=== PATIENT | male | born 1940 | race Caucasian/White ===

== ENCOUNTER 2023-03-01 11:08 | Outpatient (RCR) | payer MEDICARE, SELFPAY | END 2023-03-01 23:59 | disposition home or self-care (01) | LOC: ROT 11:08 | PROVIDERS: ATTENDING PHYSICIAN Psychiatry & Neurology Neurology; FAMILY PHYSICIAN Family Medicine | DX: R29.898 Other symptoms and signs involving the musculoskeletal system (principal); Z73.6 Limitation of activities due to disability; R26.9 Unspecified abnormalities of gait and mobility | CPT/HCPCS: 97110; 97112; 97116; 97163; 97167; 97530; 97535 ==

== ENCOUNTER 2023-04-03 10:26 | Outpatient (RCR) | payer MEDICARE, SELFPAY | END 2023-04-03 23:59 | disposition home or self-care (01) | LOC: ROT 10:26 | PROVIDERS: ATTENDING PHYSICIAN Psychiatry & Neurology Neurology; FAMILY PHYSICIAN Family Medicine | DX: I69.398 Other sequelae of cerebral infarction (principal); R29.898 Other symptoms and signs involving the musculoskeletal system; I69.318 Other symptoms and signs involving cognitive functions following cerebral infarction; R41.841 Cognitive communication deficit; R26.9 Unspecified abnormalities of gait and mobility | CPT/HCPCS: 96125; 97110; 97112; 97116; 97129; 97130; 97530; 97535 ==

== ENCOUNTER 2023-04-24 23:32 | Emergency (ER) | payer MEDICARE, SELFPAY ==
[2023-04-24 23:36] VITALS: BP 128/79
[2023-04-24 23:46] VITALS: BP 129/97
--- NOTE | 2023-04-24 23:52 | ED.GENMED ---
History of Present Illness
General
Chief Complaint: Abdominal Symptoms
Source: patient
Exam Limitations: none
Time Seen by Provider: 04/24/23 23:42
Nursing documentation reviewed up to this point in time: agreed with
Travel History
Have you had any contact with someone who has COVID-19?: No
Do you have any symptoms of coronavirus? Fever > 100 degrees, chills, cough, shortness of breath, sore throat, loss of taste or smell, muscle aches, or headache?: No
History of Present Illness
History of Present Illness:
82-year-old male with a past medical history of Parkinson's, hypertension, hyperlipidemia, diabetes who presents to the emergency room via EMS from home for evaluation of abdominal pain. Patient reports onset of symptoms last night�he says that he
had an episode shortly after dinner that lasted for a few minutes and was associated with 1 small episode of vomiting after which the symptoms completely resolved. He then was asymptomatic until tonight at around 10:30 PM. He says he was laying in
bed and had rather abrupt onset of intense epigastric pain. Radiated towards the lower chest. He says it was associated with intense nausea. He says this lasted for 30 minutes or so at which time he had a large volume of nonbloody emesis. He
says after this he symptoms completely resolved. EMS was called to bring him to the hospital. He says he has no pain here in the emergency room and in fact is completely asymptomatic. He no longer has any nausea. He says he has been having
normal bowel movements last bowel movement was this morning he is passing gas throughout the day. He denies any recent fevers or chills. Denies any chest pain or exertional symptoms. No shortness of breath. No dizziness. He denies similar
symptoms in the past. He denies any prior history of abdominal surgeries.
Past History
Past History
ED Past Medical History: HTN, Hypercholesterolemia and NIDDM
ED Past Surgical History: Other
Social History
Personal:
Review of Systems
Review of Systems
All Other Systems: ROS reviewed and negative except as documented in HPI and ROS
Constitutional: Denies fever or chills
EENT: Denies sore throat or runny nose
Respiratory: Denies cough or trouble breathing
Cardiac: Denies chest pain or palpitations
ABD/GI: Reports abdominal pain, nausea and vomiting; Denies diarrhea or constipated
: Denies dysuria, frequency or flank pain
Musculoskeletal: Denies neck pain or back pain
Neurological: Denies headache, weakness or numbness
Phy Exam
Physical Exam
Physical Exam:
General: Awake, alert, oriented x3; no acute distress
Head: Normocephalic, atraumatic
Eyes: Conjunctiva normal, sclera anicteric
Throat: Airway intact, handling secretions
Neck: Trachea midline, supple without meningismus
Lungs: Clear to auscultation bilaterally, no wheezing, rales, rhonchi
Heart: Regular rate and rhythm, no murmurs, gallops, or rubs
Abd: Soft, mildly distended with some tympany across the upper abdomen; normoactive bowel sounds; mild tenderness in the epigastric region but no peritoneal signs and no abdominal masses appreciated
Neuro: Cranial nerves grossly intact, speech fluid
Skin: no rash
Extremities: No edema in extremities, warm and well-perfused
Scores
Heart Failure Risk
Heart Failure Risk Score: Not Applicable
Heart Score for Chest Pain Patients
STEMI patient?: Not applicable
Withdrawal Assessment of Alcohol
Withdrawal Assessment Completed?: Not applicable
Course
Orders/Labs/Results
Orders:
Orders
04/24/23 23:40
IV Insert/Care/Rem.- Treatment PRN
04/24/23 23:41
Electrocardiogram (*1) Urgent
Reason for Study: Abdominal Pain
EKG- Treatment ONCE
04/24/23 23:42
Electrocardiogram (*1) Urgent
Reason for Study: Abdominal Pain
EKG- Treatment ONCE
04/24/23 23:50
Complete Blood Count/With Diff Urgent
Comprehensive Metabolic Panel Urgent
Lipase Urgent
Troponin I Urgent
04/24/23 23:56
Lactate Level [Lactic Acid] Urgent
04/25/23 01:00
CT Abd/pelvis W Iv Cont Urgent
Reason For Exam: epigastric abd pain
Abnormal Lab Results
04/24/23 04/24/23
23:50 23:56
RBC 4.00 L 10^6/uL
(4.70-6.10)
Hct 38.3 L %
(39.0-52.0)
MCV 95.8 H fL
(80.0-94.0)
MCH 33.0 H pg
(27.0-31.0)
MPV 11.0 H fL
(7.4-10.4)
Abs Immat Gran (auto) 0.1 H 10^3/uL
(0-0.05)
Absolute Monos (auto) 1.1 H 10^3/uL
(0.1-0.6)
Immature Gran % 1.1 H %
(0-0.5)
Lymphocytes % 17.1 L %
(20.5-51.1)
Monocytes % 10.9 H %
(1.7-9.3)
Eosinophils % 6.1 H %
(0-6)
Creatinine 1.5 H mg/dL
(0.7-1.3)
Glucose 149 H mg/dl
(70-99)
Lactic Acid 2.3 H mmol/L
(0.7-2.0)
04/24/23 23:50
04/24/23 23:50
Vital Signs
Initial and Last Documented VS:
Initial Vital Signs
Temp Pulse Resp BP Pulse Ox
36.7 C 92 24 128/79 97
04/24/23 23:36 04/24/23 23:36 04/24/23 23:36 04/24/23 23:36 04/24/23 23:36
Last Documented Vital Signs
Temp Pulse Resp BP Pulse Ox
36.7 C 87 15 122/84 96
04/24/23 23:36 04/25/23 00:45 04/25/23 00:45 04/25/23 00:45 04/25/23 00:45
MDM/Problems Addressed
Differential Diagnosis Includes:
Cholecystitis, cholelithiasis, gastritis, pancreatitis, bowel obstruction, enteritis, atypical NV presentation
MDM/Problems Addressed:
82-year-old male with history as above presents for evaluation of abdominal pain�had a brief episode last night that resolved after vomiting, had a more intense and prolonged episode this evening and again resolved after vomiting. Currently
asymptomatic. Vital signs normal. Exam as above. Plan to place an IV check labs including a CBC and a CMP, lipase. Check an EKG and a troponin. Check CT of the abdomen pelvis. Will monitor closely reassess after the above.
Initial labs reviewed: CBC unremarkable, CMP shows marginally elevated creatinine at 1.5 compared to 1.3 prior. No other clinically significant abnormalities. Troponin negative. Awaiting results of CT. Patient remains pain-free with reassuring
exam.
Vision radiology report reviewed: No acute abnormality within the abdomen pelvis, no bowel obstruction, normal gallbladder and appendix; there is a mild distal esophageal wall thickening which could be correlated with signs or symptoms of
esophagitis. Patient remains pain-free since arrival here in the emergency room. Workup thus far reassuring. His is now at the bedside she notes that he was recently started on Sinemet and has been increasing dosage. Apparently last night
and tonight was the first night he took the increased dosage and she thinks that this may be the cause of his symptoms. Advised to scale back to previous dose and discuss with prescribing physician. They are requesting discharge patient says he
feels well. At this point no clear indication for admission with resolution of symptoms completely and reassuring vitals, exam, workup thus far. Will discharge with plan for outpatient PCP follow-up. Spoke about return precautions all questions
answered.
*Radiology
Radiology exam reviewed: radiology read reviewed
*Pulse Oximetry
Patient hypoxic: no
*EKG
Interpreted by ED Provider?: Yes
Heart Rate: 92
Rate: normal
Rhythm: sinus
[place]: normal axis
Interval: normal interval
QRS Pattern: normal QRS
Ischemia: no ischemia
*Critical Care Note
Total Time (30-74mins, 75-104mins- exclusive of procedures): Not Applicable
Data Reviewed
Source: patient, records and ambulance crew
ED Attending Note
-
Portions of this chart may have been created with voice recognition software.� Occasional wrong word or��sound alike� substitutions may have occurred due to the inherent limitations of voice recognition software.
Discharge Plan
Departure
Patient Disposition: Home (Routine Discharge)
Date of Disposition: 04/25/23
Time of Disposition: 04:10
Patient with high blood pressure during this ER visit?: No
Discharge Problem:
Abdominal pain
Instructions: Abdominal Pain
Prescriptions:
No Action
lisinopril 20 mg tablet
20 mg PO DAILY
amlodipine 5 mg tablet
5 mg PO DAILY
simvastatin 40 mg tablet
40 mg PO QPM
cyanocobalamin (vitamin B-12) 500 mcg Tablet
500 mcg PO DAILY
Janumet 50-500 mg tablet
1 tab PO BID@0800,1700
Hold Instructions: Resume on 09/10/22.
pantoprazole 40 mg tablet,delayed release (DR/EC)
40 mg PO BID Qty: 60 1RF
ferrous sulfate 325 mg (65 mg iron) tablet
325 mg PO NOON Qty: 30 0RF
ascorbic acid (vitamin C) [Vitamin C] 500 mg tablet
500 mg PO NOON Qty: 30 0RF
aspirin 81 mg Tablet
81 mg PO DAILY
carbidopa-levodopa 25-100 mg Tablet
0.5 tab PO TID
Patient Comments:
STEADILY INCREASING DOSES
Referrals:
Marvin Davies DO [Family Provider] - Call in 1-3 days for appt
Activity Restrictions/Additional Instructions:
Thank you for visiting the Emergency Department at [facility].
1. Please schedule a follow up appointment as directed. Call first thing tomorrow morning to make an appointment.
2. If indicated, please take your medications as instructed and indicated on discharge paperwork.
3. If any of your symptoms do not improve, or persist, or become more severe within 6-12 hours, please return to the emergency department for further care.
4. Please return to the emergency department if you develop a headache, neck pain/stiffness, fever greater than 100.4F, chest pain, shortness of breath, persistent nausea, vomiting, slurred speech, difficulty walking, numbness/tingling, weakness,
signs of infection or any other symptoms that are worrisome to you.
Please call [phone] if you have any questions.
Interventions
Interventions:
*Risk Screen - Suicide Last Done: 04/24/23 23:36
*Neglect/Abuse Screening Last Done: 04/24/23 23:36
ED- Fall Risk Assessment Last Done: 04/24/23 23:36
*ED COVID-19 Vaccine History Last Done: 04/24/23 23:36
GO-Mniamh-[place]ac[place] Assessment Last Done: 04/24/23 23:36
[2023-04-25] VITALS: BP 128/79; BMI 30.5
[2023-04-25 00:23] LABS: Lactic Acid 2.3 mmol/L (0.7-2.0)
[2023-04-25 00:26] LABS: ALT (SGPT) 19 U/L (0-50); AST (SGOT) 21 U/L (17-59); Albumin 4.2 g/dl (3.5-5.0); Alkaline Phosphatase 122 U/L (38-126); Blood Urea Nitrogen 20 mg/dl (9-20); Calcium 8.9 mg/dl (8.4-10.2); Carbon Dioxide 22 mmol/L (22-30); Chloride 107 mmol/L (98-107); Estimated Creatinine Clearance 48 ml/min; Glucose 149 mg/dl (70-99); Lipase 95 U/L (23-300); Potassium 4.6 mmol/L (3.5-5.1); Sodium 138 mmol/L (135-145); Total Bilirubin 0.6 mg/dl (0.2-1.3); Total Protein 6.9 g/dl (6.3-8.2); eGFR 46.48
[2023-04-25 00:33] LABS: % Basophils 0.7 % (0-2); % Eosinophils 6.1 % (0-6); % Immature Granulocytes 1.1 % (0-0.5); % Lymphocytes 17.1 % (20.5-51.1); % Monocytes 10.9 % (1.7-9.3); % Neutrophils 64.1 % (42.2-75.2); Absolute Basophils 0.1 10^3/uL (0-0.2); Absolute Eosinophils 0.6 10^3/uL (0-0.7); Absolute Immature Granulocytes 0.1 10^3/uL (0-0.05); Absolute Lymphocytes 1.7 10^3/uL (1.2-3.4); Absolute Monocytes 1.1 10^3/uL (0.1-0.6); Absolute Neutrophils 6.4 10^3/uL (1.4-6.5); Hematocrit 38.3 % (39.0-52.0); Hemoglobin 13.2 g/dL (13.0-18.0); Mean Corp Hgb Conc. 34.5 g/dL (33.0-37.0); Mean Corpuscular Volume 95.8 fL (80.0-94.0); Nucleated Red Blood Cells % 0 % (-); Platelet Count 185 10^3/uL (130-400); Red Cell Dist. Width 12.8 % (11.5-14.5); White Blood Cell Count 9.9 10^3/uL (4.8-10.8)
[2023-04-25 00:35] LABS: Troponin I < 0.012 ng/ml
[2023-04-25 00:45] VITALS: BP 122/84
--- NOTE | 2023-04-25 04:19 | DOWNTIME ---
There was a [employer] Client Antenna Design Engineer Downtime on 04/25/2023 from 0111 to 04/25/2023 at 0405. Downtime documentation of patient's care, including medication administrations, has been reconciled in the electronic record per guidelines. Refer to the
patient's paper chart under the miscellaneous tab to see printed paper medication records and downtime forms.
== END 2023-04-25 02:22 | disposition home or self-care (01) ==
LOC: EMR 23:32
PROVIDERS: EMERGENCY PHYSICIAN Emergency Medicine; FAMILY PHYSICIAN Family Medicine
DX: R10.13 Epigastric pain (principal); R07.89 Other chest pain; R11.2 Nausea with vomiting, unspecified; R79.89 Other specified abnormal findings of blood chemistry; G20.A1 Parkinson's disease without dyskinesia, without mention of fluctuations; I10 Essential (primary) hypertension; E78.00 Pure hypercholesterolemia, unspecified; E11.9 Type 2 diabetes mellitus without complications; Z79.82 Long term (current) use of aspirin; Z79.84 Long term (current) use of oral hypoglycemic drugs
CPT/HCPCS: 99285; 74177; 80053; 83605; 83690; 84484; 85025; 93005; Q9967

== ENCOUNTER 2023-05-02 14:46 | Outpatient (RCR) | payer MEDICARE, SELFPAY | END 2023-05-02 23:59 | disposition home or self-care (01) | LOC: ROT 14:46 | PROVIDERS: ATTENDING PHYSICIAN Psychiatry & Neurology Neurology; FAMILY PHYSICIAN Family Medicine | DX: I69.318 Other symptoms and signs involving cognitive functions following cerebral infarction (principal); R41.841 Cognitive communication deficit; I69.398 Other sequelae of cerebral infarction; R29.898 Other symptoms and signs involving the musculoskeletal system; R26.9 Unspecified abnormalities of gait and mobility | CPT/HCPCS: 97110; 97112; 97116; 97129; 97130; 97530; 97535 ==

== ENCOUNTER 2023-05-09 14:54 | Outpatient (RCR) | payer MEDICARE, SELFPAY | END 2023-05-09 23:59 | disposition home or self-care (01) | LOC: ROT 14:54 | PROVIDERS: ATTENDING PHYSICIAN Psychiatry & Neurology Neurology; FAMILY PHYSICIAN Family Medicine | DX: I69.311 Memory deficit following cerebral infarction (principal); R29.898 Other symptoms and signs involving the musculoskeletal system; I69.310 Attention and concentration deficit following cerebral infarction; I69.314 Frontal lobe and executive function deficit following cerebral infarction; I69.354 Hemiplegia and hemiparesis following cerebral infarction affecting left non-dominant side; I69.318 Other symptoms and signs involving cognitive functions following cerebral infarction; R26.9 Unspecified abnormalities of gait and mobility; Z73.6 Limitation of activities due to disability | CPT/HCPCS: 97110; 97116; 97129; 97130; 97530; 97535 ==

== ENCOUNTER 2023-10-06 18:35 | Inpatient (IN) | payer MEDICARE, SELFPAY ==
[2023-10-06] VITALS (13 sets, daily range): BP systolic 126–152; BP diastolic 72–93; PULSE 88; O2SAT 94; BMI 30.5
--- NOTE | 2023-10-06 11:22 | ED.GENMED ---
History of Present Illness
General
Chief Complaint: Weakness
Source: patient and ambulance crew
Exam Limitations: altered mental status
Time Seen by Provider: 10/06/23 11:21
History of Present Illness
History of Present Illness:
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 EMS states they are very familiar with this patient as they get frequent
calls for a lift assist either from wheelchair to bed or wheelchair into the car. Today the police, who are also very familiar with the patient, arrived before EMS and told EMS that 'something is different.' EMS personnel state that unlike other
times, today, patient is unable to stand once they would. He is much weaker.
Pt denies CP, trouble breathing, abdominal pain. Denies any pain.
Cannot state why he's here.
arrives, states 'he's totally out of it.'Called EMT to get pt into car to meet family for breakfast. He kept leaning to his left side, officer that arrived also saw pt yesterday and said he's more out of it, weaker.
States he seems more confused.
Has been eating and drinking well. Incontinent of stool and urine.
Chronic right leg weakness
Fell 5 days ago, wound on nose. Slipped off wheelchair, hit left side of nose on kitchen counter.
Went to pt first, given cream to put on TID, and antibiotic 4 times a day (Keflex)
Lasts saw PCP Dr. Davies saw in August, referred to [facility] where he's been going past 4 weeks, twice a week.
had one episode vomiting after eating at [employer].
Next therapy in 3 days.
Past History
Past History
ED Past Medical History: HTN, Hypercholesterolemia, NIDDM and Other (Parkinson's )
ED Past Surgical History: Orthopedic (2020 low back surgery)
Social History
Tobacco: Non-smoker
Alcohol: None
Personal:
Living: with family
Review of Systems
Review of Systems
Allergies reviewed?: Yes
All Other Systems: ROS reviewed and negative except as documented in HPI and ROS
Constitutional: Denies fever
Respiratory: Denies trouble breathing
Cardiac: Denies chest pain
ABD/GI: Denies abdominal pain, nausea, vomiting, diarrhea or anorexia
: Denies dysuria, frequency or difficulty voiding
Musculoskeletal: Reports other (chronic right leg weakness)
Skin: Reports other (left side nose cheek wound post fall 5 days ago. )
Phy Exam
Physical Exam
Physical Exam:
GENERAL: No acute distress. Alert, oriented to name, , '[facility],' states it's February
CONSTITUTIONAL: Afebrile.
EYES: PERRL, conjunctivae normal
Neck: Supple
ENMT: moist mucus membranes, Pharynx nl
RESPIRATORY: Regular respirations, nonlabored, lungs clear.
CARDIOVASCULAR: Regular rate and rhythm, no murmurs, no rubs.
GI: Soft, nontender, normal BS
MUSCULOSKELETAL: Moves with ease. Well perfused.
SKIN: Warm, dry, pink. Scabbed wound left side nose with surrounding erythema, no drainage, no significant swelling.
PSYCH: Normal mood and affect. Well kept, interactive and appropriate
NEUROLOGIC: Awake, alert and oriented. No focal neurological deficits, speech clear.
Course
Orders/Labs/Results
Orders:
Orders
10/06/23 11:26
Complete Blood Count/With Diff Urgent
Comprehensive Metabolic Panel Urgent
10/06/23 11:33
CT Head W/o Iv Contrast Urgent
Comment:
Reason For Exam: change in mental state, leaning to left
10/06/23 12:14
0.9% Sodium Chloride 1000 ml [Nss] 1,000 ml IV BOLUS
10/06/23 12:28
Urinalysis Reflex To Culture Urgent
Date Specimen was Collected: 10/06/23
Time Specimen was Collected: 12:15
10/06/23 13:22
Case Management Consult ONCE
Case Management Consult: Discharge Planning
Comment: cannot care for him, needs rehab.
Physical Therapy Consult [Pt Eval And Treat] Urgent
Treatment: eval for placement in rehab
Activity Level: As Tolerated
Abnormal Lab Results
10/06/23 10/06/23
11:26 12:28
RBC 3.93 L 10^6/uL
(4.70-6.10)
Hct 37.0 L %
(39.0-52.0)
MCV 94.1 H fL
(80.0-94.0)
MCH 33.1 H pg
(27.0-31.0)
MPV 10.7 H fL
(7.4-10.4)
Absolute Monos (auto) 1.0 H 10^3/uL
(0.1-0.6)
Monocytes % 12.7 H %
(1.7-9.3)
Carbon Dioxide 20 L mmol/L
(22-30)
BUN 22 H mg/dl
(9-20)
Creatinine 1.7 H mg/dL
(0.7-1.3)
Glucose 266 H mg/dl
(70-99)
Urine Ketones Trace A
(Negative)
10/06/23 11:26
10/06/23 11:26
Vital Signs
Initial and Last Documented VS:
Initial Vital Signs
Temp Pulse Resp BP Pulse Ox
99.2 F 96 18 134/76 93
10/06/23 11:18 10/06/23 11:18 10/06/23 11:18 10/06/23 11:18 10/06/23 11:18
Last Documented Vital Signs
Temp Pulse Resp BP Pulse Ox
99.2 F 83 24 140/78 93
10/06/23 11:18 10/06/23 14:45 10/06/23 14:45 10/06/23 13:49 10/06/23 13:49
MDM/Problems Addressed
Differential Diagnosis Includes:
UTI, dehydration, CVA
MDM/Problems Addressed:
83-year-old male with history of HTN, HLD, NIDDM, Parkinson's presents from home by EMS. EMS states they are very familiar with this patient as they get frequent calls for a lift assist either from wheelchair to bed or wheelchair into the car.
Today the police, who are also very familiar with the patient, arrived before EMS and told EMS that 'something is different.' EMS personnel state that unlike other times, today, patient is unable to stand once they would. He is much weaker.
residential plan: Nicol from [facility] follows pt, told there is a 4 day/wk program for people with Parkinson's if he gets any worse
Pt denies CP, trouble breathing, abdominal pain. Denies any pain.
Cannot state why he's here.
Temp 99.0 po
12:00 p.m.
CBC: no clinically significant abnormality
CMP: BUN/creat 22/1.7 slightly increased from previous, most likely prerenal, 200 ml IV fluids infused en route/ 1 L over and hour ordered now
Head CT: Radiology report reviewed: IMPRESSION:
No acute intracranial hemorrhage.
There is extensive periventricular and subcortical white matter hypodensities, similar to prior MRI and likely sequelae of chronic small vessel ischemic disease, however MRI would be more sensitive if there is concern for acute ischemia.
There is opacification of the right frontal sinus with partial opacification of the ethmoid air cells recommend correlation for possible sinusitis.
Debris within the bilateral external auditory canals, likely cerumen.
1:00 PM:
UA: Negative
P/T in: recommends SNF. Pt heavy 2 person assist.
does not want to take pt home, she cannot handle him
3:00 p.m.
Case management in: States in order to place in SNF, needs 3 night stay.
Hospitalist notified of admission.
5:30 p.m.
Hospitalist MARKET RESEARCH SENIOR PROJECT MANAGER in to admit
Pt remains stable.
*Critical Care Note
Total Time (30-74mins, 75-104mins- exclusive of procedures): Not Applicable
ED Attending Note
-
Portions of this chart may have been created with voice recognition software.� Occasional wrong word or��sound alike� substitutions may have occurred due to the inherent limitations of voice recognition software.
Discharge Plan
Departure
Patient Disposition: Admit
Date of Disposition: 10/06/23
Time of Disposition: 14:57
Admit to: Med/Surg
Presentation/result/management discussed w/ accepting MD/DO: Hospitalist
Condition: Fair
Discharge Problem:
Ambulatory dysfunction, Acute dehydration, Change in mental state
Prescriptions:
No Action
lisinopril 20 mg tablet
20 mg PO DAILY
amlodipine 5 mg tablet
5 mg PO DAILY
simvastatin 40 mg tablet
40 mg PO QPM
cyanocobalamin (vitamin B-12) 500 mcg Tablet
500 mcg PO DAILY
Janumet 50-500 mg tablet
1 tab PO BID@0800,1700
ferrous sulfate 325 mg (65 mg iron) tablet
325 mg PO NOON Qty: 30 0RF
ascorbic acid (vitamin C) [Vitamin C] 500 mg tablet
500 mg PO NOON Qty: 30 0RF
cephalexin 250 mg capsule
250 mg PO QID
aspirin 81 mg Tablet,Delayed Release (Dr/Ec)
81 mg PO DAILY
pantoprazole 40 mg tablet,delayed release (DR/EC)
40 mg PO BID@0800,1700
Referrals:
Marvin Davies DO [Family Provider] -
Interventions
Interventions:
*Risk Screen - Suicide Last Done: 10/06/23 11:22
*General Assessment Last Done: 10/06/23 11:22
*Neglect/Abuse Screening Last Done: 10/06/23 11:22
*ED COVID-19 Vaccine History Last Done: 10/06/23 11:22
ED- Cardiac Assessment Last Done: 10/06/23 11:23
ED- Neurological Assessment Last Done: 10/06/23 11:23
ED- Pulmonary Assessment Last Done: 10/06/23 11:23
Discharge Date and Time
Print Language: CHINESE
[2023-10-06 11:34] LABS: % Basophils 0.5 % (0-2); % Eosinophils 2.5 % (0-6); % Immature Granulocytes 0.4 % (0-0.5); % Lymphocytes 20.9 % (20.5-51.1); % Monocytes 12.7 % (1.7-9.3); Absolute Eosinophils 0.2 10^3/uL (0-0.7); Absolute Lymphocytes 1.6 10^3/uL (1.2-3.4); Absolute Neutrophils 4.8 10^3/uL (1.4-6.5); Mean Corp Hgb Conc. 35.1 g/dL (33.0-37.0); Mean Corpuscular Hgb 33.1 pg (27.0-31.0); Mean Corpuscular Volume 94.1 fL (80.0-94.0); Mean Platelet Volume 10.7 fL (7.4-10.4); Nucleated Red Blood Cells % 0 % (-); Platelet Count 152 10^3/uL (130-400); Red Blood Cell Count 3.93 10^6/uL (4.70-6.10); Red Cell Dist. Width 12.8 % (11.5-14.5); White Blood Cell Count 7.6 10^3/uL (4.8-10.8)
[2023-10-06 11:52] LABS: ALT (SGPT) 31 U/L (0-50); AST (SGOT) 32 U/L (17-59); Albumin 4.4 g/dl (3.5-5.0); Alkaline Phosphatase 88 U/L (38-126); Blood Urea Nitrogen 22 mg/dl (9-20); Calcium 9.1 mg/dl (8.4-10.2); Carbon Dioxide 20 mmol/L (22-30); Chloride 103 mmol/L (98-107); Estimated Creatinine Clearance -6 ml/min; Glucose 266 mg/dl (70-99); Potassium 4.7 mmol/L (3.5-5.1); Sodium 135 mmol/L (135-145); Total Bilirubin 0.7 mg/dl (0.2-1.3); Total Protein 6.9 g/dl (6.3-8.2); eGFR 39.75
[2023-10-06] MEDS: NSS 1000 IV ×2 (12:16→20:54)
[2023-10-06 12:57] LABS: Urine Albumin Negative (Neg - Trace); Urine Bilirubin Negative (Negative); Urine Character Clear (Clear); Urine Color Yellow; Urine Glucose Negative (Negative); Urine Ketone Trace (Negative); Urine Leukocyte Negative (Negative); Urine Nitrite Negative (Negative); Urine Occult Blood Negative (Negative); Urine Specific Gravity 1.015 (<1.030); Urine Urobilinogen Negative (Neg - 1+); Urine pH 6.5 (5.0-9.0)
--- NOTE | 2023-10-06 13:50 | CM ---
Addendum entered by VANCE Feng 10/06/23 14:37:
Consult for SNF . Patient seen by PT. MEt with patient he agrees to referrals to [facility] and [facility]. Family out of room.
Referrals sent in allscripts.
Original Note:
Met patient, and children in room. Patient and say they usually manage at home but patient is much weaker today than last night. They live in one level apartment that is w/c accessible from one of the doors. He only sponge bathes. He
uses urinal and wears depends. He does not have a hospital bed.
PCP Marvin Davies
[facility]
CM discussed [facility] for [facility] as patient is a .
NOrmally able to assist with w/c transfers. PEr and family he has not been diagnosed with Parkinson's Disease.
Encouraged family to pursue assistance from [facility].
HE has been to [facility] in past and had [facility] home care in past.
He recently has been going to outpatient [facility].
Awaiting PT eval to determine if patient can go home with home care or needs SNF placement.
CM to follow for discharge needs.
--- NOTE | 2023-10-06 18:18 | W.PN.UPDATE ---
Update Note
Progress Note Update
I saw and examined the patient.
The HAND TOUCH UP PAINTER or PA's note was reviewed and I agree with the note that will proceed this note.
Comment:
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
note, EMS receives frequent calls from left to assist patient to wheelchair or bed or wheelchair to car in the past although this time appears to be much weaker.� Cannot state why he is here, although denies any associated symptoms.� states is
more confused.� Of note had a fall 5 days ago and sustained a wound on her nose, no head strike. �Patient normotensive, heart rate 83, respiratory rate 24, saturating well on room air.� Creatinine 1.7, glucose 266, UA negative.� Head CT unremarkable
for acute pathology although does have extensive periventricular and subcortical white matter hypodensities, similar to prior MRI and likely several layers of chronic small vessel ischemic disease.� Possible sinusitis.� Patient unable to ambulate
well and admitted for placement, with PT/OT recommending SNF.� No acute findings, interventions at this time.� Was given 1 L LR bolus, can provide 1 additional bolus.� Pending placement.
--- NOTE | 2023-10-06 18:24 | HPS.HSE ---
Family Physician
-
Family Physician: Marvin Davies
Chief Complaint
-
Weakness
History of Present Illness
Patient is an 83-year-old male past medical history of hypertension, hyperlipidemia, diabetes and prior stroke who presents with weakness. Additional history is obtained from patient's at the bedside. Patient frequently requires EMS
assistance for lift assistance. Today patient was attempting to get to the car to be to family for breakfast, and EMS noted him to be significantly weaker than baseline and suggested he come to the emergency department for evaluation. notes
patient fell about 5 days ago injuring his nose, currently receiving antibiotics until October 08. There are no reports of fever, sweats or chills. Patient denies any cough, shortness of breath, chest pain, palpitations, nausea, vomiting, diarrhea,
constipation, dysuria or urinary frequency.
Medical History
Past Medical History
Past Medical History: Reports Other
Additional Past Medical History:
Essential Hypertension
Hyperlipidemia
Diabetes Mellitus, Type II
Multiple Strokes
GERD/Erosive Esophagitis
Past Surgical History: Reports Other
Additional Past Surgical History:
Back Surgery
Social History
Tobacco: Non-smoker
Alcohol: None
Personal:
Living: With Family
Family History
Family History: Not pertinent
Allergies / Home Medications
Allergies reflects when Allergies were last updated in [facility].
Home Medications with original date entered in [facility]
Allergy/Medication List:
Allergies
Allergy/AdvReac Type Severity Reaction Status Date / Time
No Known Allergies Allergy Verified 10/06/23 11:18
Home Medications
amlodipine 5 mg tablet 5 mg PO DAILY Blood Pressure 09/06/22
cyanocobalamin (vitamin B-12) 500 mcg tablet 500 mcg PO DAILY Supplement 09/06/22
lisinopril 20 mg tablet 20 mg PO DAILY Blood Pressure 09/06/22
simvastatin 40 mg tablet 40 mg PO QPM High Cholesterol 09/06/22
sitagliptin phosphate 50 mg-metformin 500 mg tablet (Janumet) 1 tab PO BID@0800,1700 Diabetes 09/06/22
ascorbic acid (vitamin C) 500 mg tablet (Vitamin C) 500 mg PO NOON #30 tabs 09/07/22
ferrous sulfate 325 mg (65 mg iron) tablet 325 mg PO NOON #30 tabs 09/07/22
aspirin 81 mg tablet,delayed release 81 mg PO DAILY 10/06/23
cephalexin 250 mg capsule 250 mg PO QID 10/06/23
pantoprazole 40 mg tablet,delayed release 40 mg PO BID@0800,1700 10/06/23
Review of Systems
-
A 12 point ROS was completed and negative except as noted: Yes
Constitutional: Denies Fever or Chills
Respiratory: Denies Cough or Trouble Breathing
Cardiac: Denies Chest Pain or Palpitations
Abdomen/GI: Denies Abdominal Pain, Nausea or Vomiting
Physical Exam
Vital Signs
Vital Signs
Temp Pulse Resp BP Pulse Ox
99.2 F 90 25 132/79 93
10/06/23 11:18 10/06/23 18:15 10/06/23 18:15 10/06/23 18:00 10/06/23 13:49
Physical Exam
General: Comfortable and Conversant
HEENT: Anicteric and Moist mucous membranes
Respiratory: Clear and Non Labored Respirations
Cardiac: S1/S2 and Regular Rhythm
GI: Soft and Non Tender
Musculoskeletal: No Clubbing, No Cyanosis and No Edema
Skin: Warm, Dry and Other (Large scab to nose following recent fall)
Neuro: Awake and Alert; No Oriented (Patient unable to tell me correct date or identify the president)
Laboratory Results
-
10/06/23 11:26
10/06/23 11:26
Laboratory Results
Total Bilirubin 0.7 mg/dl (0.2-1.3) 10/06/23 11:26
AST 32 U/L (17-59) 10/06/23 11:26
ALT 31 U/L (0-50) 10/06/23 11:26
Alkaline Phosphatase 88 U/L (38-126) 10/06/23 11:26
Data Reviewed
-
CT Scan: Report Reviewed by me
Lab Data: Labs Reviewed by me
Old Records: Reviewed
Impression/Plan
-
Elevated Creatinine, possible GEO vs CKD
-Continue IVFs
-Check bladder scans
Weakness/Ambulatory Dysfunction
-Consult PT/OT
Essential Hypertension
-Continue amlodipine
-Hold lisinopril
Hyperlipidemia
-Continue simvastatin
Diabetes Mellitus, Type II
-Continue Januvia
-Hold metformin
-Monitor sugars and continue coverage
GERD/Erosive Esophagitis
-Continue Protonix
Multiple Prior Strokes
-Continue aspirin
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
-Monitor for mood/behavior changes during hospitalization
DVT proph: SC Heparin
Code Status: DNR
[2023-10-06] MEDS: KEFLEX 500 MG PO (20:53)
[2023-10-06] MEDS: JANUVIA 50 MG PO (20:53)
[2023-10-06] MEDS: GLUCOPHAGE 500 MG PO (20:53)
[2023-10-06 21:30] LABS: Glucose - Point of Care 165 mg/dl (70-99)
[2023-10-06] MEDS: HEPARIN 5000 UNITS SC (23:06)
[2023-10-07 07:31] LABS: Glucose - Point of Care 166 mg/dl (70-99)
[2023-10-07 07:55] VITALS: BP 165/89
[2023-10-07] MEDS: NOVOLOG FLEXPEN-LOW RESISTANCE 1 UNITS SC ×3 (08:38→17:29)
[2023-10-07] MEDS: GLUCOPHAGE 500 MG PO ×2 (08:39→17:38)
[2023-10-07] MEDS: KEFLEX 500 MG PO ×4 (08:44→21:03)
[2023-10-07] MEDS: NORVASC 5 MG PO (08:44)
[2023-10-07] MEDS: VITAMIN B-12 500 MCG PO (08:44)
[2023-10-07] MEDS: JANUVIA 50 MG PO ×2 (08:44→17:39)
[2023-10-07] MEDS: ASPIR LOW (ENTERIC COATED) 81 MG PO (08:44)
[2023-10-07] MEDS: PROTONIX 40 MG PO ×2 (08:44→17:38)
[2023-10-07] MEDS: HEPARIN 5000 UNITS SC ×3 (08:45→23:03)
[2023-10-07] MEDS: DESENEX/MITRAZOL/ZEASORB 1 APPLIC TOPICAL ×2 (09:03→22:58)
[2023-10-07 09:12] LABS: Blood Urea Nitrogen 17 mg/dl (9-20); Calcium 8.7 mg/dl (8.4-10.2); Carbon Dioxide 21 mmol/L (22-30); Chloride 103 mmol/L (98-107); Estimated Creatinine Clearance 48 ml/min; Glucose 168 mg/dl (70-99); Potassium 4.3 mmol/L (3.5-5.1); Sodium 135 mmol/L (135-145); eGFR 54.85
[2023-10-07 09:24] LABS: Hematocrit 35.1 % (39.0-52.0); Mean Corp Hgb Conc. 34.2 g/dL (33.0-37.0); Mean Corpuscular Hgb 32.2 pg (27.0-31.0); Mean Corpuscular Volume 94.1 fL (80.0-94.0); Mean Platelet Volume 11.2 fL (7.4-10.4); Platelet Count 156 10^3/uL (130-400); Red Blood Cell Count 3.73 10^6/uL (4.70-6.10); Red Cell Dist. Width 12.8 % (11.5-14.5); White Blood Cell Count 8.3 10^3/uL (4.8-10.8)
[2023-10-07] MEDS: NSS 1000 IV ×2 (09:27→22:57)
[2023-10-07 10:58] LABS: Glycohemoglobin (HgbA1c) 10.2 % (4.0-5.6)
--- NOTE | 2023-10-07 12:18 | CM ---
CM met with Denny and his at bedside to complete IA today. They live together in an apartment with ramp entry. Denny's typically assists with transfers, however Denny is much weaker than usual, required an EMS lift assist the day
he was admitted to .
Plan is for SNF transfer; will check tomorrow to see if Denny is eligible for the [facility] waiver for SNF; if not, he will not qualify for transfer until 10/09/2023. Referrals have been sent to [facility], [facility], [facility], [facility] and [facility] in [place]. prefers [facility] and [facility]. [facility] has accepted for transfer pending bed availability at discharge.
Plan: CM will continue to follow to facilitate SNF transfer.
[2023-10-07] MEDS: FEOSOL 325 MG PO (12:24)
[2023-10-07] MEDS: VITAMIN C 500 MG PO (12:24)
--- NOTE | 2023-10-07 12:26 | CM ---
Denny and are agreeable to SNF transfer at discharge, as he is much weaker than usual, requiring a lift assist from EMS the day of admission.
They live together in an apartment with w/c van access via one entrance. Denny's usually helps with transfers from bed>w/c, but with decreased strength, she feels that SNF transfer for strengthening is needed.
Referrals sent to [facility], [facility], [facility], and [facility] [place]. [facility] has offered admission pending bed availability at discharge.
Plan: CM will continue to follow to facilitate transfer to SNF.
PCP: Marvin Davies
Pharmacy: [facility] in [place]
[2023-10-07 13:13] LABS: Glucose - Point of Care 197 mg/dl (70-99)
--- NOTE | 2023-10-07 13:27 | W.PN.HOSP.TC ---
Today's Communication/Plan
-
Monitor renal function
Dispo Planning - CM aware
Assessment / Plan
Assessment / Plan
Physical Exam
General: Comfortable and Conversant
HEENT: Anicteric and Moist mucous membranes
Respiratory: Clear and Non Labored Respirations
Cardiac: S1/S2 and Regular Rhythm
GI: Soft and Non Tender
Musculoskeletal: No Clubbing, No Cyanosis and No Edema
Skin: Warm, Dry and Other (Large scab to nose following recent fall)
Neuro: Awake and Alert; No Oriented (Patient unable to tell me correct date or identify the president)
GEO vs CKD
-Resolving
-Continue IVFs
-hold nephrotoxic agents
Weakness/Ambulatory Dysfunction
-Consult PT/OT - pending placement
Essential Hypertension
-Continue amlodipine
-Hold lisinopril
Hyperlipidemia
-Continue simvastatin
Diabetes Mellitus, Type II
-Continue Januvia
-Hold metformin
-Monitor sugars and continue coverage
GERD/Erosive Esophagitis
-Continue Protonix
Multiple Prior Strokes
-Continue aspirin
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
-Monitor for mood/behavior changes during hospitalization
DVT proph: SC Heparin
Code Status: DNR
Anticipated Discharge: 24 - 48 hours
Subjective/Interval History
-
Date of Service: October 07, 2023
no acute events
Objective Data
-
Labs:
Laboratory Results
10/07/23
06:10
WBC 8.3
Hgb 12.0 L
Hct 35.1 L
Plt Count 156
Sodium 135
Potassium 4.3
Chloride 103
Carbon Dioxide 21 L
BUN 17
Creatinine 1.3
Glucose 168 H
Calcium 8.7
Vital Signs:
Vital Signs
Temp Pulse Resp BP Pulse Ox
97.4 F 77 14 165/89 95
10/07/23 07:55 10/07/23 07:55 10/07/23 07:55 10/07/23 07:55 10/07/23 07:55
I&O
10/06/23 10/07/23 10/08/23
06:59 06:59 06:59
Intake Total 1440 / 1440
Balance 1440 / 1440
Review of Systems
-
History Source: Patient
All other systems: Not reviewed unless documented
Data Reviewed
-
CT Scan: Image personally visualized and interpreted and Report Reviewed by me
Labs: Labs Reviewed by me
[2023-10-07 15:00] VITALS: BP 136/78
[2023-10-07 17:08] LABS: Glucose - Point of Care 180 mg/dl (70-99)
[2023-10-07] MEDS: BACTROBAN 2% OINTMENT 1 APPLIC TOPICAL ×2 (17:28→22:59)
[2023-10-07] MEDS: LIPITOR 20 MG PO (17:39)
[2023-10-07 21:22] LABS: Glucose - Point of Care 143 mg/dl (70-99)
[2023-10-07 23:55] VITALS: BP 144/74
[2023-10-08 00:28] LABS: Glucose - Point of Care 153 mg/dl (70-99)
[2023-10-08 06:00] VITALS: BMI 29.9
[2023-10-08 07:20] VITALS: BP 140/77
[2023-10-08 07:48] LABS: Glucose - Point of Care 167 mg/dl (70-99)
[2023-10-08] MEDS: PROTONIX 40 MG PO ×2 (08:34→16:31)
[2023-10-08] MEDS: KEFLEX 500 MG PO ×4 (08:35→21:13)
[2023-10-08] MEDS: NOVOLOG FLEXPEN-LOW RESISTANCE 1 UNITS SC ×2 (08:35→12:50)
[2023-10-08] MEDS: NORVASC 5 MG PO (08:35)
[2023-10-08] MEDS: ASPIR LOW (ENTERIC COATED) 81 MG PO (08:35)
[2023-10-08] MEDS: HEPARIN 5000 UNITS SC ×3 (08:36→23:02)
[2023-10-08] MEDS: GLUCOPHAGE 500 MG PO ×2 (08:36→16:31)
[2023-10-08] MEDS: JANUVIA 50 MG PO ×2 (08:36→16:31)
[2023-10-08] MEDS: VITAMIN B-12 500 MCG PO (08:36)
[2023-10-08] MEDS: BACTROBAN 2% OINTMENT 1 APPLIC TOPICAL ×3 (08:36→21:13)
[2023-10-08] MEDS: DESENEX/MITRAZOL/ZEASORB 1 APPLIC TOPICAL ×2 (08:38→20:42)
[2023-10-08 08:39] LABS: Hematocrit 36.9 % (39.0-52.0); Hemoglobin 12.9 g/dL (13.0-18.0); Mean Corpuscular Hgb 32.7 pg (27.0-31.0); Mean Corpuscular Volume 93.4 fL (80.0-94.0); Mean Platelet Volume 10.5 fL (7.4-10.4); Platelet Count 157 10^3/uL (130-400); Red Blood Cell Count 3.95 10^6/uL (4.70-6.10); Red Cell Dist. Width 12.5 % (11.5-14.5); White Blood Cell Count 7.3 10^3/uL (4.8-10.8)
[2023-10-08] MEDS: NSS IV (08:47)
[2023-10-08 09:06] LABS: Blood Urea Nitrogen 14 mg/dl (9-20); Calcium 8.7 mg/dl (8.4-10.2); Carbon Dioxide 22 mmol/L (22-30); Chloride 106 mmol/L (98-107); Estimated Creatinine Clearance 52 ml/min; Glucose 173 mg/dl (70-99); Potassium 4.4 mmol/L (3.5-5.1); Sodium 136 mmol/L (135-145); eGFR > 60.00
--- NOTE | 2023-10-08 10:47 | W.PN.HOSP.TC ---
Today's Communication/Plan
-
Stop IV fluids
Discharge planning
Assessment / Plan
Assessment / Plan
Gen-awake, alert, not oriented, NAD
HEENT-NC, AT, anicteric, clear oral mm
Neck-supple
CV-reg, no M, +S1/S2
Lungs-clear B/L
Abd-soft, NT, ND
Ext-no edema
Musculoskeletal-no cyanosis, clubbing
Skin-warm and dry
Neuro-grossly non-focal
Psych-calm, cooperative
GEO on CKD 3A -suspect volume depletion. GEO improved with IV fluids. Can discontinue further IV fluids. Appetite is good.
Weakness/Ambulatory Dysfunction
-Consult PT/OT - pending placement
Essential Hypertension
-Continue amlodipine
-Hold lisinopril
Hyperlipidemia
-Continue simvastatin
DM2 with hyperglycemia -hemoglobin A1c 10.2%. Glucose 173 this morning.
-Continue Januvia
-Hold metformin
-Monitor sugars and continue coverage
GERD/Erosive Esophagitis
-Continue Protonix
Multiple Prior Strokes
-Continue aspirin
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
-Monitor for mood/behavior changes during hospitalization
DVT proph: SC Heparin
Code Status: DNR
Dispo -medically stable for discharge to SNF. Case management aware.
Anticipated Discharge: Within 24 hours
Subjective/Interval History
-
Date of Service: October 08, 2023
Patient seen and examined. No complaints. Pleasantly confused.
Objective Data
-
Labs:
Laboratory Results
10/08/23
08:09
WBC 7.3
Hgb 12.9 L
Hct 36.9 L
Plt Count 157
Sodium 136
Potassium 4.4
Chloride 106
Carbon Dioxide 22
BUN 14
Creatinine 1.2
Glucose 173 H
Calcium 8.7
Vital Signs:
Vital Signs
Temp Pulse Resp BP Pulse Ox
97.5 F 77 20 140/77 95
10/08/23 07:20 10/08/23 08:35 10/08/23 07:20 10/08/23 08:35 10/08/23 07:20
I&O
10/07/23 10/08/23 10/09/23
06:59 06:59 06:59
Intake Total 1440 / 1440 1560 / 1560 1440 / 1440
Output Total 900 / 900
Balance 1440 / 1440 1560 / 1560 540 / 540
Review of Systems
-
Unable to obtain full review of systems at this time due to: Dementia
History Source: Patient
All other systems: Reviewed and negative
[2023-10-08 12:09] LABS: Glucose - Point of Care 174 mg/dl (70-99)
--- NOTE | 2023-10-08 12:30 | WOUNDNOTE ---
[facility] RN note: Patient admitted with elevated creatine, fall 1 week ago. SNF planned when discharged. present.
See H&P for complete history.
PMH: HTN, DM, prior stoke, ambulation dysfunction, suspected vascular dementia.
Wound Location and type/assessment: Patient admitted with: L side of nose ecchymotic purple abrasion/blister with local erythema. L facial cheek small scabbed abrasion. Patient on Keflex. Topical Bactroban Tid on order. Skin on heels and sacrum
blanchable red and intact.
Appetite: fair-good.
Pressure redistribution devices in place: [employer] Accumax. Patient cannot turn self in bed. Patient's stated he's going to [facility] tomorrow. Discussed with RODGER Campbell who will consider a waffle air overlay.
Plan: Patient incontinent of large amount of urine. Ghazala care given, patient turned to L semi side lying position with help from RODGER Campbell. Heels off bed with pillow and air chair cushion. Instructed patient and pressure injury prevention
measures.
Current local care to nose appropriate. Care plan to be updated and will follow as needed.
Note to case management of equipment requested for discharge: Air mattress recommended.
Recommend follow up at wound care center upon discharge.
--- NOTE | 2023-10-08 12:30 | WOUNDNOTE ---
NOSE/CHEEK (L SIDE)
[2023-10-08] MEDS: VITAMIN C 500 MG PO (12:49)
[2023-10-08] MEDS: FEOSOL 325 MG PO (12:49)
[2023-10-08 14:28] VITALS: BP 146/76; PULSE 86; O2SAT 96
--- NOTE | 2023-10-08 14:30 | WOUNDNOTE ---
[facility] RN note: Vargas Francois re: recommend an air mattress at SNF. He is at risk for a pressure injury d/t his limited mobility.
[2023-10-08 15:15] VITALS: BP 139/87
[2023-10-08 16:33] LABS: Glucose - Point of Care 230 mg/dl (70-99)
[2023-10-08] MEDS: NOVOLOG FLEXPEN-LOW RESISTANCE 2 UNITS SC (16:33)
[2023-10-08] MEDS: LIPITOR 20 MG PO (17:04)
[2023-10-08 20:56] LABS: Glucose - Point of Care 171 mg/dl (70-99)
[2023-10-08 23:16] VITALS: BP 145/83
[2023-10-09 05:51] VITALS: BMI 30.4
[2023-10-09 07:00] VITALS: BP 144/84
[2023-10-09 07:28] LABS: Glucose - Point of Care 157 mg/dl (70-99)
[2023-10-09] MEDS: HEPARIN 5000 UNITS SC ×2 (07:38→16:22)
[2023-10-09] MEDS: GLUCOPHAGE 500 MG PO ×2 (07:38→16:22)
[2023-10-09] MEDS: NORVASC 5 MG PO (07:38)
[2023-10-09] MEDS: PROTONIX 40 MG PO ×2 (07:38→16:22)
[2023-10-09] MEDS: JANUVIA 50 MG PO ×2 (07:38→16:22)
[2023-10-09] MEDS: VITAMIN B-12 500 MCG PO (07:40)
[2023-10-09] MEDS: BACTROBAN 2% OINTMENT 1 APPLIC TOPICAL ×3 (07:40→20:23)
[2023-10-09] MEDS: KEFLEX 500 MG PO ×3 (07:40→17:10)
[2023-10-09] MEDS: ASPIR LOW (ENTERIC COATED) 81 MG PO (07:40)
[2023-10-09] MEDS: NOVOLOG FLEXPEN-LOW RESISTANCE 1 UNITS SC (07:42)
[2023-10-09] MEDS: DESENEX/MITRAZOL/ZEASORB 1 APPLIC TOPICAL ×2 (07:47→20:23)
--- NOTE | 2023-10-09 10:23 | W.PN.HOSP.TC ---
Today's Communication/Plan
-
Discharge planning
Assessment / Plan
Assessment / Plan
Gen-awake, alert, not oriented, NAD
HEENT-NC, AT, anicteric, clear oral mm
Neck-supple
CV-reg, no M, +S1/S2
Lungs-clear B/L
Abd-soft, NT, ND
Ext-no edema
Musculoskeletal-no cyanosis, clubbing
Skin-warm and dry, dark lesion left side of nose without drainage
Neuro-grossly non-focal
Psych-calm, cooperative
GEO on CKD 3A -suspect volume depletion. GEO improved with IV fluids. Can discontinue further IV fluids. Appetite is good.
Weakness/Ambulatory Dysfunction
-Consult PT/OT - pending placement
Scab left side of nose -due to fall 8 days ago according to . No drainage. No bleeding. Placed on Bactroban and cephalexin by urgent care 7 days ago. Continue for now.
Essential Hypertension
-Continue amlodipine
-Hold lisinopril
Hyperlipidemia
-Continue simvastatin
DM2 with hyperglycemia -hemoglobin A1c 10.2%. Glucose 173 this morning.
-Continue Januvia
-Hold metformin
-Monitor sugars and continue coverage
GERD/Erosive Esophagitis
-Continue Protonix
Multiple Prior Strokes
-Continue aspirin
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
-Monitor for mood/behavior changes during hospitalization
DVT proph: SC Heparin
Code Status: DNR
Dispo -medically stable for discharge to SNF. Case management aware. Updated at the bedside.
Anticipated Discharge: Within 24 hours
Subjective/Interval History
-
Date of Service: October 09, 2023
Patient seen and examined. No complaints.
Objective Data
-
Vital Signs:
Vital Signs
Temp Pulse Resp BP Pulse Ox
97.7 F 78 14 144/84 94
10/09/23 07:00 10/09/23 07:38 10/09/23 07:00 10/09/23 07:38 10/09/23 07:45
I&O
10/08/23 10/09/23 10/10/23
06:59 06:59 06:59
Intake Total 1560 / 1560 2400 / 2400
Output Total 900 / 900
Balance 1560 / 1560 1500 / 1500
Review of Systems
-
Unable to obtain full review of systems at this time due to: Dementia
History Source: Patient
All other systems: Reviewed and negative
--- NOTE | 2023-10-09 10:33 | CM ---
Addendum entered by VANCE Stearns 10/09/23 15:53:
Spoke again with Kim in admissions to update that there is no order in as of yet for discharge. She stated to have CM call her in the morning. Spoke with patient and his who stated that if an option, they would rather transfer in the morning
due to time. Updated [employer] community [employer]. Texted RN to update.
Plan: Transfer to [facility] in the am.
Addendum entered by VANCE Stearns 10/09/23 15:17:
Received call back from Kim in admissions at [facility] who stated that she can accept patient today. #for report [phone] and fax [phone]
Patient's updated and agreeable to [facility] transfer.
Placed a call to attending who stated that he is not in building at the moment, however will complete discharge upon return.
Placed a call to Kim in admissions at [facility], who stated that patient would need to get there earlier than 7-no later than 7 (19:00)
Medical necessity and transfer sheet completed and provided to [employer] community [employer].
Original Note:
Received update from attending that patient is medically clear for discharge. Reviewed chart. Per notes, family selected [facility] and [facility]. Placed a call to Kim in admissions at [facility] to determine bed availability for today. Had to
leave a voice mail message.
Placed a call to Sulaiman in admissions at [facility] however also had to leave a message and requested return call back with availability. Will await return calls.
Plan: Case management will continue to follow and assist with discharge planning. [facility].
[2023-10-09 12:00] LABS: Glucose - Point of Care 259 mg/dl (70-99)
[2023-10-09] MEDS: VITAMIN C 500 MG PO (12:19)
[2023-10-09] MEDS: FEOSOL 325 MG PO (12:19)
[2023-10-09] MEDS: NOVOLOG FLEXPEN-LOW RESISTANCE 3 UNITS SC (12:21)
[2023-10-09 15:37] VITALS: BP 146/74
[2023-10-09 16:17] LABS: Glucose - Point of Care 213 mg/dl (70-99)
[2023-10-09] MEDS: NOVOLOG FLEXPEN-LOW RESISTANCE 2 UNITS SC (16:23)
--- NOTE | 2023-10-09 16:33 | W.DS.TRANS ---
DC Summary - [employer]
-
Discharge Instructions:
Discharge Diagnosis/Procedures GEO, ambulatory dysfunction
Diet Low Sodium,Diabetic, Carb Controlled
Activity With assistance
Driving Restrictions As prior to admission
Bathing Restrictions None
Instructions:
Stand-Alone Forms:
Changes to Home Medications: No
Discharge Medications:
DC Medications w/original date entered in [facility]
amlodipine 5 mg tablet 5 mg PO DAILY Blood Pressure 09/06/22
cyanocobalamin (vitamin B-12) 500 mcg tablet 500 mcg PO DAILY Supplement 09/06/22
lisinopril 20 mg tablet 20 mg PO DAILY Blood Pressure 09/06/22
simvastatin 40 mg tablet 40 mg PO QPM High Cholesterol 09/06/22
sitagliptin phosphate 50 mg-metformin 500 mg tablet (Janumet) 1 tab PO BID@0800,1700 Diabetes 09/06/22
ascorbic acid (vitamin C) 500 mg tablet (Vitamin C) 500 mg PO NOON #30 tabs 09/07/22
ferrous sulfate 325 mg (65 mg iron) tablet 325 mg PO NOON #30 tabs 09/07/22
aspirin 81 mg tablet,delayed release 81 mg PO DAILY Blood Clot Prevention/Tx 10/06/23
pantoprazole 40 mg tablet,delayed release 40 mg PO BID@0800,1700 Gastrointestinal Issue 10/06/23
miconazole nitrate 2 % topical powder (Miconazorb AF) 1 applic topical BID #85 grams 10/09/23
mupirocin 2 % topical ointment 1 applic topical TID #0 grams 10/09/23
Home Medication Changes
Pending Results: No
[2023-10-09] MEDS: LIPITOR 20 MG PO (17:10)
[2023-10-09 21:29] LABS: Glucose - Point of Care 173 mg/dl (70-99)
[2023-10-09 23:19] VITALS: BP 143/81
[2023-10-10] MEDS: HEPARIN 5000 UNITS SC ×2 (00:08→08:02)
[2023-10-10 06:00] VITALS: BMI 30.5
[2023-10-10 07:05] LABS: Glucose - Point of Care 143 mg/dl (70-99)
[2023-10-10] MEDS: NOVOLOG FLEXPEN-LOW RESISTANCE SC (07:18)
[2023-10-10 07:20] VITALS: BP 144/81
[2023-10-10] MEDS: NORVASC 5 MG PO (08:01)
[2023-10-10] MEDS: ASPIR LOW (ENTERIC COATED) 81 MG PO (08:01)
[2023-10-10] MEDS: BACTROBAN 2% OINTMENT 1 APPLIC TOPICAL (08:01)
[2023-10-10] MEDS: GLUCOPHAGE 500 MG PO (08:01)
[2023-10-10] MEDS: JANUVIA 50 MG PO (08:01)
[2023-10-10] MEDS: PROTONIX 40 MG PO (08:02)
[2023-10-10] MEDS: VITAMIN B-12 500 MCG PO (08:02)
[2023-10-10] MEDS: DESENEX/MITRAZOL/ZEASORB 1 APPLIC TOPICAL (08:03)
--- NOTE | 2023-10-10 10:23 | CM ---
Addendum entered by Joy Francois 10/11/23 10:00:
Late entry from 10/10/2023: Ambulance set up for 15:00 package pick up on 10/10/2023 to [facility]. Family made aware of transfer plans and agreeable.
Original Note:
Denny is ready for transfer to [facility]. Transport request form and [facility] completed. VM and TT left for Kim Diaz at [facility] to check what time transport can be arranged.
Plan: Transfer to [facility] SNF
Report: [phone]
--- NOTE | 2023-10-10 10:49 | PN.CDI ---
CDI
- -
CDI:
Physician Documentation Request
Admit Date: 10/06/23 18:35
Dear Doctor Aly,
Patient admitted for ambulatory dysfunction.
10/08 Hospitalist PN: 'GEO on CKD 3A -suspect volume depletion. GEO improved with IV fluids.'
Laboratory Tests
10/06/23 10/08/23
11:26 08:09
Creatinine 1.7 H 1.2
The purpose of this query is not to question medical judgement, but to ensure the accuracy of the conditions reported for your patient.
There is either a lack of clinical support for this condition in the current medical record, or there is a lack of recognized standard criteria to support the condition.
Criteria for GEO*
1 Increase in serum creatinine by > or = to 0.3 mg/dL (> or = to 26.5 micromol/L) within 48 hours, OR
2 Increase in serum creatinine to > or = to 1.5 times baseline, which is known or presumed to have occurred within 7 days, OR
3 Urine volume < 0.5 nL/kg/hour for six hours
The request is for one of the following:
- Additional documentation to support the condition. Indicate if this is in lieu of what may be considered standard criteria, and/or support why the standard criteria may not be present for this patient.
- A more appropriate diagnosis, reflecting the patient's condition
- GEO remains a known or suspected condition for this patient and is further supported by (include additional documentation in the medical record)
- GEO has been ruled out and a more appropriate diagnosis for this patient's condition is .
- Other (please specify)
- Unable to determine
Use of terms such as suspected, likely, concern for, or probable (associated with a specific diagnosis that is being evaluated, monitored, or treated as if it exists) are acceptable and can be coded in the inpatient setting, when documented at the
time of discharge.
Thank you,
Jessica Carrillo RN, BSN
CDI Specialist
Available via [place] text
Please use your independent medical judgment in providing your response.
--- NOTE | 2023-10-10 10:59 | PN.CDI ---
CDI
- -
CDI:
Physician Documentation Request
Admit Date: 10/06/23 18:35
Dear Doctor Aly,
Patient admitted for ambulatory dysfunction.
H&P: 'told there is a 4 day/wk program for people with Parkinson's if he gets any worse'
10/08 Hospitalist PN: 'suspect volume depletion...Weakness/Ambulatory Dysfunction...Multiple Prior Strokes'
Based on the above, could you clarify in the progress notes, the etiology of ambulatory dysfunction:
Progression of Parkinson's
Volume Depletion
Other
Use of terms such as suspected, likely, concern for, or probable (associated with a specific diagnosis that is being evaluated, monitored, or treated as if it exists) are acceptable and can be coded in the inpatient setting, when documented at the
time of discharge.
Thank you,
Jessica Carrillo RN, BSN
CDI Specialist
Available via [place] text
Please use your independent medical judgment in providing your response.
--- NOTE | 2023-10-10 11:10 | W.PN.HOSP.TC ---
Addendum entered and electronically signed by Leif Lu DO 10/10/23 12:18:
GEO on CKD 3a - presumed diagnosis as I suspect creatinin prior to admission was 1.2 at baseline, 1.7 on day of admission.
Ambulatory dysfunction etiology likely multifactorial, including volume depletion in setting of Parkinsons disease associated ambulatory dysfunction. Unable to tell if PD is progressing.
Original Note:
Today's Communication/Plan
-
Discharge
Assessment / Plan
Assessment / Plan
Gen-awake, alert, not oriented, NAD
HEENT-NC, AT, anicteric, clear oral mm
Neck-supple
CV-reg, no M, +S1/S2
Lungs-clear B/L
Abd-soft, NT, ND
Ext-no edema
Musculoskeletal-no cyanosis, clubbing
Skin-warm and dry, dark lesion left side of nose without drainage
Neuro-grossly non-focal
Psych-calm, cooperative
GEO on CKD 3A -suspect volume depletion. GEO improved with IV fluids. Can discontinue further IV fluids. Appetite is good.
Weakness/Ambulatory Dysfunction
-Consult PT/OT - pending placement
Scab left side of nose -due to fall 8 days ago according to . No drainage. No bleeding. Completed course of antibiotics.
Essential Hypertension
-Continue amlodipine
-Hold lisinopril
Hyperlipidemia
-Continue simvastatin
DM2 with hyperglycemia -hemoglobin A1c 10.2%. Glucose 143 this morning.
-Continue Januvia
-Resume metformin on discharge
-Monitor sugars and continue coverage
GERD/Erosive Esophagitis
-Continue Protonix
Multiple Prior Strokes
-Continue aspirin
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
-Monitor for mood/behavior changes during hospitalization
DVT proph: SC Heparin
Code Status: DNR
Dispo -medically stable for discharge to SNF. Case management aware. Updated at the bedside.
32 minutes spent in discharge process.
Anticipated Discharge: Today
Subjective/Interval History
-
Date of Service: October 10, 2023
Patient seen and examined. No complaints.
Objective Data
-
Vital Signs:
Vital Signs
Temp Pulse Resp BP Pulse Ox
97.3 F 81 20 130/81 94
10/10/23 07:20 10/10/23 08:01 10/10/23 07:20 10/10/23 08:01 10/10/23 07:20
I&O
10/09/23 10/10/23 10/11/23
06:59 06:59 06:59
Intake Total 2400 / 2400 660 / 660
Output Total 900 / 900
Balance 1500 / 1500 660 / 660
Review of Systems
-
History Source: Patient
All other systems: Reviewed and negative
[2023-10-10] MEDS: FEOSOL 325 MG PO (11:38)
[2023-10-10] MEDS: VITAMIN C 500 MG PO (11:38)
[2023-10-10] MEDS: NOVOLOG FLEXPEN-LOW RESISTANCE 1 UNITS SC (11:53)
[2023-10-10 11:54] LABS: Glucose - Point of Care 185 mg/dl (70-99)
[2023-10-10 13:27] VITALS: BP 164/93
== END 2023-10-10 16:19 | DRG 684 ==
LOC: 4 EAST ACU 18:35
PROVIDERS: Physician Assistant Medical; Registered Nurse; ADMITTING PHYSICIAN Internal Medicine; ATTENDING PHYSICIAN Hospitalist; EMERGENCY PHYSICIAN Student in an Organized Health Care Education/Training Program; FAMILY PHYSICIAN Family Medicine
DX: N17.9 Acute kidney failure, unspecified (principal); E86.0 Dehydration; I10 Essential (primary) hypertension; E78.00 Pure hypercholesterolemia, unspecified; E11.9 Type 2 diabetes mellitus without complications; Z66 Do not resuscitate; N18.31 Chronic kidney disease, stage 3a; G20.A1 Parkinson's disease without dyskinesia, without mention of fluctuations; K29.00 Acute gastritis without bleeding
CPT/HCPCS: 70450; 80048; 80053; 81003; 82962; 83036; 85025; 85027; 96360; 97166; 97530; 97535; 99285

== ENCOUNTER → 2023-10-12 11:12 | Outpatient (REF) | payer OTHER, MEDICARE, SELFPAY ==
[2023-10-12 11:55] LABS: % Basophils 0.8 % (0-2); % Eosinophils 3.5 % (0-6); % Immature Granulocytes 1.5 % (0-0.5); % Lymphocytes 22.3 % (20.5-51.1); % Monocytes 7.9 % (1.7-9.3); Absolute Basophils 0.1 10^3/uL (0-0.2); Absolute Eosinophils 0.3 10^3/uL (0-0.7); Absolute Immature Granulocytes 0.2 10^3/uL (0-0.05); Absolute Lymphocytes 2.2 10^3/uL (1.2-3.4); Absolute Monocytes 0.8 10^3/uL (0.1-0.6); Absolute Neutrophils 6.2 10^3/uL (1.4-6.5); Hematocrit 37.8 % (39.0-52.0); Mean Corp Hgb Conc. 34.4 g/dL (33.0-37.0); Mean Corpuscular Hgb 32.8 pg (27.0-31.0); Mean Corpuscular Volume 95.5 fL (80.0-94.0); Mean Platelet Volume 10.9 fL (7.4-10.4); Nucleated Red Blood Cells % 0 % (-); Platelet Count 194 10^3/uL (130-400); Red Blood Cell Count 3.96 10^6/uL (4.70-6.10); Red Cell Dist. Width 13.1 % (11.5-14.5); White Blood Cell Count 9.7 10^3/uL (4.8-10.8)
[2023-10-12 12:42] LABS: Blood Urea Nitrogen 27 mg/dl (9-20); Calcium 9.2 mg/dl (8.4-10.2); Carbon Dioxide 22 mmol/L (22-30); Chloride 102 mmol/L (98-107); Glucose 163 mg/dl (70-99); Potassium 4.4 mmol/L (3.5-5.1); Sodium 134 mmol/L (135-145); eGFR 34.79
== END ==
LOC: CLAB 11:12
PROVIDERS: ATTENDING PHYSICIAN Family Medicine
DX: Z86.73 Personal history of transient ischemic attack (TIA), and cerebral infarction without residual deficits (principal); E11.65 Type 2 diabetes mellitus with hyperglycemia; K20.90 Esophagitis, unspecified without bleeding; K21.9 Gastro-esophageal reflux disease without esophagitis; I10 Essential (primary) hypertension; M62.81 Muscle weakness (generalized); N18.30 Chronic kidney disease, stage 3 unspecified; N17.9 Acute kidney failure, unspecified; M62.59 Muscle wasting and atrophy, not elsewhere classified, multiple sites
CPT/HCPCS: 36415; 80048; 85025

== ENCOUNTER → 2023-10-15 12:32 | Outpatient (REF) | payer OTHER, MEDICARE, SELFPAY ==
[2023-10-15 13:48] LABS: Blood Urea Nitrogen 46 mg/dl (9-20); Calcium 9.4 mg/dl (8.4-10.2); Carbon Dioxide 21 mmol/L (22-30); Chloride 104 mmol/L (98-107); Glucose 149 mg/dl (70-99); Potassium 4.8 mmol/L (3.5-5.1); Sodium 135 mmol/L (135-145); eGFR 20.94
[2023-10-15 17:28] LABS: % Basophils 0.7 % (0-2); % Eosinophils 3.2 % (0-6); % Immature Granulocytes 0.4 % (0-0.5); % Lymphocytes 25.5 % (20.5-51.1); % Monocytes 10.3 % (1.7-9.3); % Neutrophils 59.9 % (42.2-75.2); Absolute Basophils 0.1 10^3/uL (0-0.2); Absolute Eosinophils 0.3 10^3/uL (0-0.7); Absolute Lymphocytes 2.6 10^3/uL (1.2-3.4); Absolute Monocytes 1.1 10^3/uL (0.1-0.6); Absolute Neutrophils 6.2 10^3/uL (1.4-6.5); Hematocrit 39.6 % (39.0-52.0); Hemoglobin 13.3 g/dL (13.0-18.0); Mean Corp Hgb Conc. 33.6 g/dL (33.0-37.0); Mean Corpuscular Hgb 31.7 pg (27.0-31.0); Mean Corpuscular Volume 94.3 fL (80.0-94.0); Mean Platelet Volume 10.7 fL (7.4-10.4); Nucleated Red Blood Cells % 0 % (-); Platelet Count 231 10^3/uL (130-400); Red Cell Dist. Width 13.7 % (11.5-14.5); White Blood Cell Count 10.3 10^3/uL (4.8-10.8)
== END ==
LOC: OLABP 12:32
PROVIDERS: ATTENDING PHYSICIAN Family Medicine
DX: Z86.73 Personal history of transient ischemic attack (TIA), and cerebral infarction without residual deficits (principal); E11.65 Type 2 diabetes mellitus with hyperglycemia; K20.90 Esophagitis, unspecified without bleeding; K21.9 Gastro-esophageal reflux disease without esophagitis; I10 Essential (primary) hypertension; M62.81 Muscle weakness (generalized); N18.30 Chronic kidney disease, stage 3 unspecified; N17.9 Acute kidney failure, unspecified; M62.59 Muscle wasting and atrophy, not elsewhere classified, multiple sites
CPT/HCPCS: 36415; 80048; 85025

== ENCOUNTER → 2023-10-16 09:52 | Outpatient (REF) | payer OTHER, MEDICARE, SELFPAY ==
[2023-10-16 11:33] LABS: % Basophils 0.6 % (0-2); % Eosinophils 3.1 % (0-6); % Immature Granulocytes 0.5 % (0-0.5); % Lymphocytes 23.6 % (20.5-51.1); % Monocytes 10.3 % (1.7-9.3); % Neutrophils 61.9 % (42.2-75.2); Absolute Basophils 0.1 10^3/uL (0-0.2); Absolute Eosinophils 0.3 10^3/uL (0-0.7); Absolute Immature Granulocytes 0.1 10^3/uL (0-0.05); Absolute Lymphocytes 2.6 10^3/uL (1.2-3.4); Absolute Monocytes 1.1 10^3/uL (0.1-0.6); Absolute Neutrophils 6.7 10^3/uL (1.4-6.5); Hematocrit 39.8 % (39.0-52.0); Hemoglobin 13.7 g/dL (13.0-18.0); Mean Corp Hgb Conc. 34.4 g/dL (33.0-37.0); Nucleated Red Blood Cells % 0 % (-); Platelet Count 223 10^3/uL (130-400); Red Blood Cell Count 4.28 10^6/uL (4.70-6.10); Red Cell Dist. Width 13.2 % (11.5-14.5); White Blood Cell Count 10.8 10^3/uL (4.8-10.8)
[2023-10-16 11:43] LABS: Urine Albumin Trace (Neg - Trace); Urine Bilirubin Negative (Negative); Urine Character Clear (Clear); Urine Color Yellow; Urine Glucose Negative (Negative); Urine Ketone Negative (Negative); Urine Leukocyte Negative (Negative); Urine Nitrite Negative (Negative); Urine Occult Blood Negative (Negative); Urine Urobilinogen Negative (Neg - 1+)
[2023-10-16 11:45] LABS: Blood Urea Nitrogen 49 mg/dl (9-20); Calcium 9.4 mg/dl (8.4-10.2); Carbon Dioxide 21 mmol/L (22-30); Chloride 101 mmol/L (98-107); Glucose 132 mg/dl (70-99); Potassium 4.7 mmol/L (3.5-5.1); Sodium 136 mmol/L (135-145); eGFR 26.28
== END ==
LOC: OLABP 09:52
PROVIDERS: ATTENDING PHYSICIAN Family Medicine
DX: Z86.73 Personal history of transient ischemic attack (TIA), and cerebral infarction without residual deficits (principal); E11.65 Type 2 diabetes mellitus with hyperglycemia; K20.90 Esophagitis, unspecified without bleeding; K21.9 Gastro-esophageal reflux disease without esophagitis; I10 Essential (primary) hypertension; M62.81 Muscle weakness (generalized); N18.30 Chronic kidney disease, stage 3 unspecified; N17.9 Acute kidney failure, unspecified; M62.59 Muscle wasting and atrophy, not elsewhere classified, multiple sites; N40.1 Benign prostatic hyperplasia with lower urinary tract symptoms
CPT/HCPCS: 36415; 80048; 81003; 85025; 87086

== ENCOUNTER → 2023-10-18 09:52 | Outpatient (REF) | payer OTHER, MEDICARE, SELFPAY ==
[2023-10-18 10:58] LABS: ALT (SGPT) 38 U/L (0-50); AST (SGOT) 27 U/L (17-59); Albumin 4.4 g/dl (3.5-5.0); Alkaline Phosphatase 78 U/L (38-126); Blood Urea Nitrogen 42 mg/dl (9-20); Calcium 9.1 mg/dl (8.4-10.2); Carbon Dioxide 21 mmol/L (22-30); Chloride 102 mmol/L (98-107); Glucose 182 mg/dl (70-99); Potassium 5.2 mmol/L (3.5-5.1); Sodium 134 mmol/L (135-145); Total Bilirubin 0.6 mg/dl (0.2-1.3); Total Protein 6.7 g/dl (6.3-8.2); eGFR 34.79
[2023-10-18 11:14] LABS: % Basophils 0.4 % (0-2); % Eosinophils 0.1 % (0-6); % Immature Granulocytes 0.5 % (0-0.5); % Lymphocytes 8.6 % (20.5-51.1); % Monocytes 15.2 % (1.7-9.3); % Neutrophils 75.2 % (42.2-75.2); Absolute Immature Granulocytes 0.1 10^3/uL (0-0.05); Absolute Lymphocytes 0.9 10^3/uL (1.2-3.4); Absolute Monocytes 1.7 10^3/uL (0.1-0.6); Absolute Neutrophils 8.3 10^3/uL (1.4-6.5); Hematocrit 36.8 % (39.0-52.0); Hemoglobin 12.5 g/dL (13.0-18.0); Mean Corpuscular Hgb 31.8 pg (27.0-31.0); Mean Corpuscular Volume 93.6 fL (80.0-94.0); Mean Platelet Volume 11.2 fL (7.4-10.4); Nucleated Red Blood Cells % 0 % (-); Platelet Count 184 10^3/uL (130-400); Red Blood Cell Count 3.93 10^6/uL (4.70-6.10); Red Cell Dist. Width 13.3 % (11.5-14.5)
== END ==
LOC: OLABP 09:52
PROVIDERS: ATTENDING PHYSICIAN Family Medicine
DX: Z86.73 Personal history of transient ischemic attack (TIA), and cerebral infarction without residual deficits (principal); E11.65 Type 2 diabetes mellitus with hyperglycemia; K20.90 Esophagitis, unspecified without bleeding; K21.9 Gastro-esophageal reflux disease without esophagitis; I10 Essential (primary) hypertension; M62.81 Muscle weakness (generalized); N18.30 Chronic kidney disease, stage 3 unspecified; N17.9 Acute kidney failure, unspecified; M62.59 Muscle wasting and atrophy, not elsewhere classified, multiple sites
CPT/HCPCS: 36415; 80053; 85025

== ENCOUNTER → 2023-10-19 11:40 | Outpatient (REF) | payer OTHER, MEDICARE, SELFPAY ==
[2023-10-19 14:17] LABS: % Basophils 0.6 % (0-2); % Eosinophils 0.1 % (0-6); % Immature Granulocytes 0.4 % (0-0.5); % Monocytes 13.3 % (1.7-9.3); % Neutrophils 70.6 % (42.2-75.2); Absolute Basophils 0.1 10^3/uL (0-0.2); Absolute Lymphocytes 1.5 10^3/uL (1.2-3.4); Absolute Monocytes 1.4 10^3/uL (0.1-0.6); Absolute Neutrophils 7.2 10^3/uL (1.4-6.5); Hematocrit 37.7 % (39.0-52.0); Hemoglobin 12.7 g/dL (13.0-18.0); Mean Corp Hgb Conc. 33.7 g/dL (33.0-37.0); Mean Corpuscular Hgb 31.8 pg (27.0-31.0); Mean Corpuscular Volume 94.3 fL (80.0-94.0); Mean Platelet Volume 11.4 fL (7.4-10.4); Nucleated Red Blood Cells % 0 % (-); Platelet Count 175 10^3/uL (130-400); Red Cell Dist. Width 13.5 % (11.5-14.5); White Blood Cell Count 10.2 10^3/uL (4.8-10.8)
[2023-10-19 14:22] LABS: Blood Urea Nitrogen 38 mg/dl (9-20); Calcium 9.1 mg/dl (8.4-10.2); Carbon Dioxide 21 mmol/L (22-30); Chloride 101 mmol/L (98-107); Glucose 146 mg/dl (70-99); Potassium 4.9 mmol/L (3.5-5.1); Sodium 136 mmol/L (135-145); eGFR 42.75
== END ==
LOC: OLABP 11:40
PROVIDERS: ATTENDING PHYSICIAN Family Medicine
DX: Z86.73 Personal history of transient ischemic attack (TIA), and cerebral infarction without residual deficits (principal); E11.65 Type 2 diabetes mellitus with hyperglycemia; K20.90 Esophagitis, unspecified without bleeding; K21.9 Gastro-esophageal reflux disease without esophagitis; I10 Essential (primary) hypertension; M62.81 Muscle weakness (generalized); N18.30 Chronic kidney disease, stage 3 unspecified; N17.9 Acute kidney failure, unspecified; M62.59 Muscle wasting and atrophy, not elsewhere classified, multiple sites
CPT/HCPCS: 36415; 80048; 85025

== ENCOUNTER → 2023-10-22 14:53 | Outpatient (REF) | payer OTHER, MEDICARE, SELFPAY ==
[2023-10-22 15:16] LABS: % Basophils 0.3 % (0-2); % Immature Granulocytes 0.5 % (0-0.5); % Lymphocytes 7.1 % (20.5-51.1); % Monocytes 8.5 % (1.7-9.3); % Neutrophils 83.6 % (42.2-75.2); Absolute Basophils 0.1 10^3/uL (0-0.2); Absolute Immature Granulocytes 0.1 10^3/uL (0-0.05); Absolute Lymphocytes 1.5 10^3/uL (1.2-3.4); Absolute Monocytes 1.8 10^3/uL (0.1-0.6); Absolute Neutrophils 17.6 10^3/uL (1.4-6.5); Hematocrit 35.1 % (39.0-52.0); Hemoglobin 12.5 g/dL (13.0-18.0); Mean Corp Hgb Conc. 35.6 g/dL (33.0-37.0); Mean Corpuscular Hgb 32.4 pg (27.0-31.0); Mean Corpuscular Volume 90.9 fL (80.0-94.0); Mean Platelet Volume 10.6 fL (7.4-10.4); Nucleated Red Blood Cells % 0 % (-); Platelet Count 171 10^3/uL (130-400); Red Blood Cell Count 3.86 10^6/uL (4.70-6.10); Red Cell Dist. Width 12.9 % (11.5-14.5); White Blood Cell Count 21.1 10^3/uL (4.8-10.8)
[2023-10-22 15:22] LABS: Blood Urea Nitrogen 22 mg/dl (9-20); Calcium 8.6 mg/dl (8.4-10.2); Carbon Dioxide 19 mmol/L (22-30); Chloride 96 mmol/L (98-107); Glucose 242 mg/dl (70-99); Potassium 4.3 mmol/L (3.5-5.1); Sodium 129 mmol/L (135-145); eGFR 42.75
== END ==
LOC: OLABP 14:53
PROVIDERS: ATTENDING PHYSICIAN Family Medicine
DX: Z86.73 Personal history of transient ischemic attack (TIA), and cerebral infarction without residual deficits (principal); U07.1 COVID-19; E11.65 Type 2 diabetes mellitus with hyperglycemia; I10 Essential (primary) hypertension; R26.2 Difficulty in walking, not elsewhere classified; K21.9 Gastro-esophageal reflux disease without esophagitis; M62.81 Muscle weakness (generalized); N18.30 Chronic kidney disease, stage 3 unspecified; N17.9 Acute kidney failure, unspecified; M62.59 Muscle wasting and atrophy, not elsewhere classified, multiple sites
CPT/HCPCS: 36415; 80048; 85025

== ENCOUNTER → 2023-10-24 12:19 | Outpatient (REF) | payer OTHER, MEDICARE, SELFPAY ==
[2023-10-24 13:31] LABS: % Basophils 0.2 % (0-2); % Eosinophils 0.5 % (0-6); % Immature Granulocytes 0.8 % (0-0.5); % Lymphocytes 13.9 % (20.5-51.1); % Monocytes 7.3 % (1.7-9.3); % Neutrophils 77.3 % (42.2-75.2); Absolute Eosinophils 0.1 10^3/uL (0-0.7); Absolute Immature Granulocytes 0.1 10^3/uL (0-0.05); Absolute Lymphocytes 1.7 10^3/uL (1.2-3.4); Absolute Monocytes 0.9 10^3/uL (0.1-0.6); Absolute Neutrophils 9.4 10^3/uL (1.4-6.5); Hemoglobin 12.8 g/dL (13.0-18.0); Mean Corp Hgb Conc. 34.6 g/dL (33.0-37.0); Mean Corpuscular Hgb 32.2 pg (27.0-31.0); Mean Platelet Volume 11.1 fL (7.4-10.4); Nucleated Red Blood Cells % 0 % (-); Platelet Count 200 10^3/uL (130-400); Red Blood Cell Count 3.98 10^6/uL (4.70-6.10); Red Cell Dist. Width 12.7 % (11.5-14.5); White Blood Cell Count 12.2 10^3/uL (4.8-10.8)
[2023-10-24 14:15] LABS: ALT (SGPT) 120 U/L (0-50); AST (SGOT) 83 U/L (17-59); Albumin 3.8 g/dl (3.5-5.0); Alkaline Phosphatase 109 U/L (38-126); Blood Urea Nitrogen 24 mg/dl (9-20); Calcium 8.9 mg/dl (8.4-10.2); Carbon Dioxide 23 mmol/L (22-30); Chloride 100 mmol/L (98-107); Glucose 161 mg/dl (70-99); Potassium 4.3 mmol/L (3.5-5.1); Sodium 133 mmol/L (135-145); Total Bilirubin 0.8 mg/dl (0.2-1.3); Total Protein 6.7 g/dl (6.3-8.2); eGFR 46.19
== END ==
LOC: OLABP 12:19
PROVIDERS: ATTENDING PHYSICIAN Family Medicine
DX: Z86.73 Personal history of transient ischemic attack (TIA), and cerebral infarction without residual deficits (principal); E11.65 Type 2 diabetes mellitus with hyperglycemia; I10 Essential (primary) hypertension; R26.2 Difficulty in walking, not elsewhere classified; M62.81 Muscle weakness (generalized); N18.30 Chronic kidney disease, stage 3 unspecified; N17.9 Acute kidney failure, unspecified; M62.59 Muscle wasting and atrophy, not elsewhere classified, multiple sites; K21.9 Gastro-esophageal reflux disease without esophagitis
CPT/HCPCS: 36415; 80053; 85025

== ENCOUNTER → 2023-11-16 11:34 | Outpatient (REF) | payer OTHER, MEDICARE, SELFPAY ==
[2023-11-16 11:51] LABS: % Basophils 0.4 % (0-2); % Eosinophils 1.5 % (0-6); % Immature Granulocytes 0.5 % (0-0.5); % Lymphocytes 30.8 % (20.5-51.1); % Monocytes 9.5 % (1.7-9.3); % Neutrophils 57.3 % (42.2-75.2); Absolute Eosinophils 0.1 10^3/uL (0-0.7); Absolute Immature Granulocytes 0.1 10^3/uL (0-0.05); Absolute Lymphocytes 2.9 10^3/uL (1.2-3.4); Absolute Monocytes 0.9 10^3/uL (0.1-0.6); Absolute Neutrophils 5.4 10^3/uL (1.4-6.5); Hematocrit 36.6 % (39.0-52.0); Hemoglobin 12.7 g/dL (13.0-18.0); Mean Corp Hgb Conc. 34.7 g/dL (33.0-37.0); Mean Corpuscular Volume 95.1 fL (80.0-94.0); Mean Platelet Volume 10.7 fL (7.4-10.4); Nucleated Red Blood Cells % 0 % (-); Platelet Count 185 10^3/uL (130-400); Red Blood Cell Count 3.85 10^6/uL (4.70-6.10); Red Cell Dist. Width 13.6 % (11.5-14.5); White Blood Cell Count 9.4 10^3/uL (4.8-10.8)
[2023-11-16 11:59] LABS: ALT (SGPT) 57 U/L (0-50); AST (SGOT) 31 U/L (17-59); Albumin 3.9 g/dl (3.5-5.0); Alkaline Phosphatase 109 U/L (38-126); Blood Urea Nitrogen 12 mg/dl (9-20); Calcium 9.1 mg/dl (8.4-10.2); Carbon Dioxide 27 mmol/L (22-30); Chloride 101 mmol/L (98-107); Glucose 179 mg/dl (70-99); Sodium 141 mmol/L (135-145); Total Bilirubin 0.6 mg/dl (0.2-1.3); Total Protein 6.6 g/dl (6.3-8.2); eGFR > 60.00
== END ==
LOC: OLABP 11:34
PROVIDERS: ATTENDING PHYSICIAN Family Medicine
DX: Z86.73 Personal history of transient ischemic attack (TIA), and cerebral infarction without residual deficits (principal); U07.1 COVID-19; E11.65 Type 2 diabetes mellitus with hyperglycemia; I10 Essential (primary) hypertension; R26.2 Difficulty in walking, not elsewhere classified; K21.9 Gastro-esophageal reflux disease without esophagitis; M62.81 Muscle weakness (generalized); N18.30 Chronic kidney disease, stage 3 unspecified; N17.9 Acute kidney failure, unspecified; M62.59 Muscle wasting and atrophy, not elsewhere classified, multiple sites
CPT/HCPCS: 36415; 80053; 85025

== ENCOUNTER 2024-02-08 13:09 | Inpatient (IN) | payer MEDICARE, SELFPAY ==
[2024-02-08] VITALS (12 sets, daily range): BP systolic 135–159; BP diastolic 78–97; BMI 26.6
[2024-02-08 01:19] LABS: Lactic Acid 1.2 mmol/L (0.7-2.0)
[2024-02-08 01:20] LABS: Urine Albumin 2+ (Neg - Trace); Urine Bilirubin Negative (Negative); Urine Character Very Cloudy (Clear); Urine Color Yellow; Urine Glucose 3+ (Negative); Urine Ketone Negative (Negative); Urine Leukocyte 2+ (Negative); Urine Nitrite Negative (Negative); Urine Occult Blood 4+ (Negative); Urine Urobilinogen Negative (Neg - 1+)
[2024-02-08 01:20] LABS: ALT (SGPT) 19 U/L (0-50); AST (SGOT) 17 U/L (17-59); Albumin 4.6 g/dl (3.5-5.0); Alkaline Phosphatase 129 U/L (38-126); Blood Urea Nitrogen 23 mg/dl (9-20); Calcium 9.4 mg/dl (8.4-10.2); Carbon Dioxide 28 mmol/L (22-30); Chloride 101 mmol/L (98-107); Estimated Creatinine Clearance 43 ml/min; Glucose 322 mg/dl (70-99); Potassium 4.2 mmol/L (3.5-5.1); Sodium 141 mmol/L (135-145); Total Bilirubin 0.6 mg/dl (0.2-1.3); Total Protein 7.6 g/dl (6.3-8.2); eGFR 46.19
[2024-02-08 01:30] LABS: % Basophils 0.6 % (0-2); % Eosinophils 4.3 % (0-6); % Immature Granulocytes 0.3 % (0-0.5); % Lymphocytes 24.9 % (20.5-51.1); % Monocytes 9.4 % (1.7-9.3); % Neutrophils 60.5 % (42.2-75.2); Absolute Basophils 0.1 10^3/uL (0-0.2); Absolute Eosinophils 0.4 10^3/uL (0-0.7); Absolute Lymphocytes 2.3 10^3/uL (1.2-3.4); Absolute Monocytes 0.9 10^3/uL (0.1-0.6); Absolute Neutrophils 5.5 10^3/uL (1.4-6.5); Hematocrit 43.3 % (39.0-52.0); Hemoglobin 14.6 g/dL (13.0-18.0); Mean Corp Hgb Conc. 33.7 g/dL (33.0-37.0); Mean Corpuscular Hgb 31.7 pg (27.0-31.0); Mean Corpuscular Volume 94.1 fL (80.0-94.0); Mean Platelet Volume 11.6 fL (7.4-10.4); Nucleated Red Blood Cells % 0 % (-); Platelet Count 166 10^3/uL (130-400); Red Cell Dist. Width 12.2 % (11.5-14.5)
[2024-02-08 01:40] LABS: Urine Amorphous Seen; Urine Mucus Many; Urine Squamous Cell >30 /LPF (Few); Urine White Cell >100 /HPF (0-5)
[2024-02-08 01:41] LABS: Urine Bacteria Many (Negative)
--- NOTE | 2024-02-08 01:43 | ED.GENMED ---
History of Present Illness
General
Chief Complaint: Weakness
Source: patient and ambulance crew
Time Seen by Provider: 02/08/24 00:48
History of Present Illness
History of Present Illness:
History is provided by patient and EMS. EMS reports that the patient was more profoundly weak at home and incontinent of urine with foul-smelling urine. There is no reported fevers. No vomiting. was concerned that the patient could get up
and walk. EMS does report that they are there often has house due to weakness. Today he appeared much more disheveled and weak for them. The patient currently denies abdominal pain. No chest pain. No shortness of breath.
Past History
Past History
ED Past Medical History: HTN, Hypercholesterolemia, NIDDM and Other (Parkinson's )
ED Past Surgical History: Orthopedic (2020 low back surgery)
Social History
Tobacco: Non-smoker
Alcohol: None
Personal:
Living: with family
Phy Exam
Physical Exam
Physical Exam:
CONSTITUTIONAL Patient alert and oriented to person, place . Well-appearing. Vital signs reviewed.
HEAD atraumatic, normocephalic.
EYES eyelids normal to inspection, Extraocular muscles intact, Conjunctiva normal, Sclera normal.
NECK normal range of motion, Trachea midline, no jugular venous distention.
RESPIRATORY CHEST No respiratory distress noted, Chest expansion equal, Bilateral breath sounds clear.
CARDIOVASCULAR regular rate and rhythm, Heart sounds normal.
ABDOMEN abdomen nontender, Bowel sounds normal. No distention.
BACK normal inspection, no obvious deformities
UPPER EXTREMITY range of motion normal, Motor strength normal, no cyanosis, no edema.
LOWER EXTREMITY range of motion normal, Motor strength normal, no cyanosis, no edema.
NEURO Speech normal, No focal motor deficits, Cranial Nerves intact to screening exam.
SKIN skin warm, dry, and normal in color.
Course
Orders/Labs/Results
Orders:
Orders
02/08/24 00:51
Electrocardiogram (*1) Urgent
Reason for Study: Other
Other Reason for Exam: Possible Sepsis
Cardiac Monitoring- Treatment ONCE
02/08/24 00:52
EKG- Treatment ONCE
02/08/24 00:54
Complete Blood Count/With Diff Urgent
Comprehensive Metabolic Panel Urgent
Lactic Acid Q4H
Comment: ON ICE, CANCEL 2ND ORDER IF FIRST LACTIC ACID LEVEL <2
02/08/24 01:08
Urinalysis Reflex To Culture Urgent
Date Specimen was Collected: 02/08/24
Time Specimen was Collected: 00:57
Urine Microscopic Reflex Cult Urgent
Urine Culture Urgent
NELLY Source: U
Specimen Description:
Date Specimen was Collected: 02/08/24
Time Specimen was Collected: 00:57
02/08/24 01:43
NSS 1000mL Bolus WIDE OPEN 0.9% Sodium Chloride 1000 ml [Nss] 1,000 ml IV BOLUS
Abnormal Lab Results
02/08/24 02/08/24
00:54 01:08
RBC 4.60 L 10^6/uL
(4.70-6.10)
MCV 94.1 H fL
(80.0-94.0)
MCH 31.7 H pg
(27.0-31.0)
MPV 11.6 H fL
(7.4-10.4)
Absolute Monos (auto) 0.9 H 10^3/uL
(0.1-0.6)
Monocytes % 9.4 H %
(1.7-9.3)
BUN 23 H mg/dl
(9-20)
Creatinine 1.5 H mg/dL
(0.7-1.3)
Glucose 322 H mg/dl
(70-99)
Alkaline Phosphatase 129 H U/L
(38-126)
Ur Occult Blood Reflex 4+ A
(Negative)
Leukocyte Esterase Rfl 2+ A
(Negative)
Urine WBC (Reflex) >100 A /HPF
(0-5)
Urine Bacteria (Reflex) Many A
(Negative)
Urine Glucose 3+ A
(Negative)
Urine Albumin (Reflex) 2+ A
(Neg - Trace)
02/08/24 00:54
02/08/24 00:54
Vital Signs
Initial and Last Documented VS:
Initial Vital Signs
Temp Pulse Resp BP Pulse Ox
99.1 F 97 16 155/93 95
02/08/24 00:50 02/08/24 00:50 02/08/24 00:50 02/08/24 00:50 02/08/24 00:50
Last Documented Vital Signs
Temp Pulse Resp BP Pulse Ox
99.1 F 83 13 137/97 95
02/08/24 00:50 02/08/24 01:15 02/08/24 01:15 02/08/24 01:07 02/08/24 01:17
MDM/Problems Addressed
Differential Diagnosis Includes:
Electrolyte imbalance, urosepsis, bacteremia
MDM/Problems Addressed:
Acute kidney injury, urinary tract infection, generalized weakness, hyperglycemia
*Pulse Oximetry
Patient hypoxic: no
*EKG
Interpreted by ED Provider?: Yes
Interpretation: abnormal
Rate: normal
[place]: normal axis
Ischemia: non-specific ST changes
*Critical Care Note
Total Time (30-74mins, 75-104mins- exclusive of procedures): Not Applicable
Data Reviewed
Review of Other/Old Records Reveals: Discharge Summary (from 10/26 reviewed. )
Source: patient and ambulance crew
Patient Management
Escalation/DeEscalation of care consider admission/obs:
83-year-old male extremely weak. Found to have UTI. Otherwise stable. IV fluids given acute kidney injury, IV antibiotics and admit
ED Attending Note
-
Portions of this chart may have been created with voice recognition software.� Occasional wrong word or��sound alike� substitutions may have occurred due to the inherent limitations of voice recognition software.
Discharge Plan
Departure
Patient Disposition: Admit
Date of Disposition: 02/08/24
Time of Disposition: 01:51
Admit to: Med/Surg
Presentation/result/management discussed w/ accepting MD/DO: Hospitalist
Discharge Problem:
Acute UTI, Acute kidney injury, Weakness
Prescriptions:
No Action
amlodipine 5 mg tablet
5 mg PO DAILY
simvastatin 40 mg tablet
40 mg PO QPM
cyanocobalamin (vitamin B-12) 500 mcg Tablet
1,000 mcg PO DAILY
ferrous sulfate 325 mg (65 mg iron) tablet
325 mg PO NOON Qty: 30 0RF
aspirin 81 mg Tablet,Delayed Release (Dr/Ec)
81 mg PO DAILY
pantoprazole 40 mg tablet,delayed release (DR/EC)
40 mg PO BID@0800,1700
Januvia 100 mg Tablet
100 mg PO DAILY
ascorbic acid (vitamin C) [Vitamin C] 500 mg tablet
250 mg PO NOON
Referrals:
Forrest Davis MD [Family Provider] -
Interventions
Interventions:
*Risk Screen - Suicide Last Done: 02/08/24 00:50
*Neglect/Abuse Screening Last Done: 02/08/24 00:50
ED- Fall Risk Assessment Last Done: 02/08/24 01:17
*ED COVID-19 Vaccine History Last Done: 02/08/24 00:50
ED- Cardiac Assessment Last Done: 02/08/24 01:17
ED- Neurological Assessment Last Done: 02/08/24 01:17
ED- Pulmonary Assessment Last Done: 02/08/24 01:17
Discharge Date and Time
Print Language: SERBIAN
--- NOTE | 2024-02-08 01:52 | ED.GENMED ---
History of Present Illness
General
Chief Complaint: Weakness
Source: patient and ambulance crew
Time Seen by Provider: 02/08/24 00:48
History of Present Illness
History of Present Illness:
83-year-old male who presents with weakness. Apparently his reported that he was more weak than usual. EMS reports that he looked more disheveled and weak and her used to. They have seen him a lot for lift assist. He has a history of
Parkinson's disease. In addition he found to be incontinent of urine. Patient does report feeling a little bit weak but denies any other symptoms. No reports of pain. No reported fever
Past History
Past History
ED Past Medical History: HTN, Hypercholesterolemia, NIDDM and Other (Parkinson's )
ED Past Surgical History: Orthopedic (2020 low back surgery)
Social History
Tobacco: Non-smoker
Alcohol: None
Personal:
Living: with family
Phy Exam
Physical Exam
Physical Exam:
CONSTITUTIONAL Patient alert and oriented to person, place. Vital signs reviewed.
HEAD atraumatic, normocephalic.
EYES eyelids normal to inspection, Extraocular muscles intact, Conjunctiva normal, Sclera normal.
NECK normal range of motion, Trachea midline, no jugular venous distention.
RESPIRATORY CHEST No respiratory distress noted, Chest expansion equal
ABDOMEN abdomen nontender, Bowel sounds normal. No distention.
BACK normal inspection, no obvious deformities
UPPER EXTREMITY range of motion normal, Motor strength normal, no cyanosis, no edema.
LOWER EXTREMITY range of motion normal, Motor strength normal, no cyanosis, no edema.
NEURO Speech normal, No focal motor deficits, Cranial Nerves intact to screening exam.
SKIN skin warm, dry, and normal in color.
Course
Orders/Labs/Results
Orders:
Orders
02/08/24 00:51
Electrocardiogram (*1) Urgent
Reason for Study: Other
Other Reason for Exam: Possible Sepsis
Cardiac Monitoring- Treatment ONCE
02/08/24 00:52
EKG- Treatment ONCE
02/08/24 00:54
Complete Blood Count/With Diff Urgent
Comprehensive Metabolic Panel Urgent
Lactic Acid Q4H
Comment: ON ICE, CANCEL 2ND ORDER IF FIRST LACTIC ACID LEVEL <2
02/08/24 01:08
Urinalysis Reflex To Culture Urgent
Date Specimen was Collected: 02/08/24
Time Specimen was Collected: 00:57
Urine Microscopic Reflex Cult Urgent
Urine Culture Urgent
NELLY Source: U
Specimen Description:
Date Specimen was Collected: 02/08/24
Time Specimen was Collected: 00:57
02/08/24 01:43
0.9% Sodium Chloride 1000 ml [Nss] 1,000 ml IV BOLUS
02/08/24 01:53
Cefepime HCl [Maxipime] 2,000 mg IV NOW STA
02/08/24 02:18
Admit/Transfer Patient As Directed
Co-Sign Provider:
Level of Care: Observation services
Assign to:: Medical/Surgical
Physician / Group: hospitalist
Diagnosis: acute cystitis
02/08/24 02:19
PRN Pain Medication Management As Directed
May give lesser potent ordered pain med per pt: Yes
preference::
Protocol:: Medication orders for pain may be administered in a
manner that supports deferring to patient preference
when the pt is:
- Requesting an ordered lesser potent pain medication.
Least to most potent pain medications are defined
as: acetaminophen < NSAID < tramadol < opioids
(morphine, oxycodone, hydromorphone).
- Requesting a lesser dose of the same medication IF
ORDERED.
- Requesting a less intrusive route of administration
if both routes are prescribed by the provider (PO <
IV).
02/08/24 02:20
Code Status As Directed
Resuscitation Status: Do not resuscitate
Reached after discussion with pt or family/Healthcare POA: Yes
DNR Bracelet Application ONCE
02/08/24 02:21
Blood Culture Q30M
NELLY Source: Blood/Venous
Specimen Description:
Blood Culture Q30M
NELLY Source: Blood/Venous
Specimen Description:
02/08/24 Breakfast
1800 calorie (15 carb) Diabetic
At Your Request: Limited, Winchman/Crane Operator Required
Flush (0.9% Sodium Chloride) [Flush (Nss)] See Dose Instructions IV PER PROTOCOL
02/08/24 06:07
CT Abd/pel Without Iv Or Oral Routine
Comment:
Reason For Exam: hematuria jana ->stone evaluation, eval obstruction
02/08/24 07:19
Acetaminophen [Tylenol] 650 mg PO Q4HPRN PRN
Bisacodyl [Dulcolax] 10 mg RECTAL [id number] PRN
Docusate W/Senna [Senokot-S] 1 tablet PO BIDPRN PRN
Polyethylene Glycol Powder [Miralax] 17 grams PO DAILYPRN PRN
02/08/24 07:19
Activity As Directed
Activity Level: With Assistance
Bedside Glucose Monitoring As Directed
Frequency: AC&HS
Orthostatic Vital Signs As Directed
Orthostatic VS Frequency: Daily
Vital Signs As Directed
Frequency: Per unit guidelines
Pt Eval And Treat Routine
Activity Level: With Assistance
DX Deep Vein Thrombosis Video Routine
02/08/24 07:30
0.9% Sodium Chloride 500 ml [Nss] 500 ml IV 100 mls/hr
Insulin Aspart Corrective Low [Novolog Flexpen-Low Resistance] See Protocol SC AC
02/08/24 08:00
Amlodipine [Norvasc] 5 mg PO DAILY
Aspirin Low Dose EC [Aspir Low (Enteric Coated)] 81 mg PO DAILY
Dextrose 50%-Water [Dextrose 50% Syringe] 12.5 grams IV [id number] PRN
Glucagon [GlucaGen] 1 mg IM PRN PRN
Heparin 5,000 units SC Q8
Pantoprazole [Protonix] 40 mg PO BID@0800,1700
Sitagliptin Phosphate [Januvia] 100 mg PO DAILY
02/08/24 08:09
Ot Screening Request from Cristian Routine
Pt Screening Request from Cristian Routine
02/08/24 08:38
Restraints - Non Violent As Directed
Justification-Patient:: 2-Protective Intervention
Restraint Type-: Gisele-chair or 4 Siderails
Apply From (date): 02/08/24
Apply from (time): 08:38
Remove (date): 02/09/24
Remove (time): 23:59
02/08/24 09:21
Speech Screening from Cristian Routine
02/08/24 11:06
Request for Speech Therapy [NOTICE] Routine
02/08/24 12:00
Ferrous Sulfate [Feosol] 325 mg PO NOON
02/08/24 13:08
Ot Eval And Treat Routine
Pt Eval And Treat Routine
Activity Level: Out of Bed-Early Mobility
Speech Therapy Eval & Treat Routine
02/08/24 14:00
Cefepime HCl [Maxipime] 1,000 mg IV Q12H
Sterile Water [Sterile Water For Injection] 10 ml IV Q12H
02/08/24 18:00
Atorvastatin [Lipitor] 20 mg PO QPM
02/09/24 06:07
Basic Metabolic Panel IN AM
Complete Blood Count/No Diff IN AM
Magnesium IN AM
Abnormal Lab Results
02/08/24 02/08/24 02/08/24
00:54 01:08 08:57
RBC 4.60 L 10^6/uL
(4.70-6.10)
MCV 94.1 H fL
(80.0-94.0)
MCH 31.7 H pg
(27.0-31.0)
MPV 11.6 H fL
(7.4-10.4)
Absolute Monos (auto) 0.9 H 10^3/uL
(0.1-0.6)
Monocytes % 9.4 H %
(1.7-9.3)
BUN 23 H mg/dl
(9-20)
Creatinine 1.5 H mg/dL
(0.7-1.3)
Glucose 322 H mg/dl
(70-99)
Alkaline Phosphatase 129 H U/L
(38-126)
Ur Occult Blood Reflex 4+ A
(Negative)
Leukocyte Esterase Rfl 2+ A
(Negative)
Urine WBC (Reflex) >100 A /HPF
(0-5)
Urine Bacteria (Reflex) Many A
(Negative)
Urine Glucose 3+ A
(Negative)
Urine Albumin (Reflex) 2+ A
(Neg - Trace)
POC Glucose 289 H mg/dl
(70-99)
02/08/24
13:00
RBC
MCV
MCH
MPV
Absolute Monos (auto)
Monocytes %
BUN
Creatinine
Glucose
Alkaline Phosphatase
Ur Occult Blood Reflex
Leukocyte Esterase Rfl
Urine WBC (Reflex)
Urine Bacteria (Reflex)
Urine Glucose
Urine Albumin (Reflex)
POC Glucose 312 H mg/dl
(70-99)
02/08/24 00:54
02/08/24 00:54
Vital Signs
Initial and Last Documented VS:
Initial Vital Signs
Temp Pulse Resp BP Pulse Ox
99.1 F 97 16 155/93 95
02/08/24 00:50 02/08/24 00:50 02/08/24 00:50 02/08/24 00:50 02/08/24 00:50
Last Documented Vital Signs
Temp Pulse Resp BP Pulse Ox
102.1 F H 92 18 145/82 97
02/09/24 14:15 02/09/24 11:30 02/09/24 11:30 02/09/24 11:30 02/09/24 11:30
MDM/Problems Addressed
Differential Diagnosis Includes:
Sepsis, bacteremia, UTI, lecture imbalance, dehydration
MDM/Problems Addressed:
Acute severe hyperglycemia, acute UTI, change in mental status, weakness
*Pulse Oximetry
Patient hypoxic: no
*Critical Care Note
Total Time (30-74mins, 75-104mins- exclusive of procedures): Not Applicable
Data Reviewed
Review of Other/Old Records Reveals: Labs, Records and Discharge Summary
Source: patient and ambulance crew
Further Testing Considered But Not Given:
Consider CT head but strongly suspect UTI as source of weakness
Patient Management
Discussion with other providers: Hospitalist
Escalation/DeEscalation of care consider admission/obs:
Hemodynamically the patient remained stable. Cover with antibiotics. IV fluids. Hyperglycemia noted and hospitalist to address.
ED Attending Note
-
Portions of this chart may have been created with voice recognition software.� Occasional wrong word or��sound alike� substitutions may have occurred due to the inherent limitations of voice recognition software.
Discharge Plan
Departure
Patient Disposition: Admit
Date of Disposition: 02/08/24
Time of Disposition: 01:51
Admit to: Med/Surg
Presentation/result/management discussed w/ accepting MD/DO: Hospitalist
Discharge Problem:
Acute UTI, Acute kidney injury, Weakness
Interventions
Interventions:
*Risk Screen - Suicide Last Done: 02/08/24 00:50
*General Assessment Last Done: 02/08/24 01:00
*Neglect/Abuse Screening Last Done: 02/08/24 00:50
ED- Fall Risk Assessment Last Done: 02/08/24 01:17
*ED COVID-19 Vaccine History Last Done: 02/08/24 00:50
*Nursing Disposition Last Done: 02/08/24 07:17
ED- Cardiac Assessment Last Done: 02/08/24 01:17
ED- Neurological Assessment Last Done: 02/08/24 01:17
ED- Pulmonary Assessment Last Done: 02/08/24 01:17
Discharge Date and Time
Discharge Date/Time: 02/08/24 07:17
--- NOTE | 2024-02-08 02:04 | HPS.HSE ---
Family Physician
-
Family Physician: Forrest Davis MD
Chief Complaint
-
Weakness, incontinence
History of Present Illness
This is an 83-year-old with past medical history of dementia, Parkinson's, hyperlipidemia, [id number] diabetes who presents to the emergency department from home with weakness and fall found to be incontinent with foul malodorous urine.
Patient has dementia and lives with spouse at home. He is alert and oriented and able to carry out conversation but unable to provide much history by himself. History obtained from EMS records. Patient generally denies symptoms to me. By EMS,
patient was more profoundly weak at home and incontinent of urine with foul-smelling urine. There is no reported fevers. No vomiting. was concerned that the patient couldn't get up and walk. EMS does report that they are there often has
house due to weakness. Today he appeared much more disheveled and weak for them.
Patient himself denies having any fevers, chills, headache, neck stiffness or pain, chest pain, cough, shortness of breath, abdominal pain, nausea, vomiting, flank pain, dysuria or hematuria. Denies diarrhea. Unable to describe any history of
recent falls. Denies any joint aches and pains. He denies any new rash. He has no lower extremity swelling.
On arrival in the ED the patient, he was hemodynamic dynamically stable with a blood pressure of 111/97 and was satting 100% on room air. His temperature was 99.1. A urine showed significant pyuria, leukocyte esterase, many bacteria but negative
nitrites. He has been microscopic hematuria. His creatinine was increased to 1.5 from a baseline of around 1.0. His CBC was all within normal limits. He is electrolytes were normal. Glucose was elevated at 322.
Medical History
Past Medical History
Past Medical History: Reports Dementia, HTN, Hypercholesterolemia and NIDDM
Past Surgical History: Reports Other
Social History
Unable to obtain full social history at this time due to: Dementia
Tobacco: Non-smoker
Alcohol: None
Drug: None
Personal:
Living: With Family
Employment: Retired
Family History
Family History: Not pertinent
Allergies / Home Medications
Allergies reflects when Allergies were last updated in [facility].
Home Medications with original date entered in [facility]
Allergy/Medication List:
Allergies
Allergy/AdvReac Type Severity Reaction Status Date / Time
Penicillins Allergy Unknown Verified 02/08/24 00:50
Home Medications
amlodipine 5 mg tablet 5 mg PO DAILY Blood Pressure 09/06/22
cyanocobalamin (vitamin B-12) 500 mcg tablet 1,000 mcg PO DAILY Supplement 09/06/22
simvastatin 40 mg tablet 40 mg PO QPM High Cholesterol 09/06/22
ferrous sulfate 325 mg (65 mg iron) tablet 325 mg PO NOON #30 tabs 09/07/22
aspirin 81 mg tablet,delayed release 81 mg PO DAILY Blood Clot Prevention/Tx 10/06/23
pantoprazole 40 mg tablet,delayed release 40 mg PO BID@0800,1700 Gastrointestinal Issue 10/06/23
ascorbic acid (vitamin C) 500 mg tablet (Vitamin C) 250 mg PO NOON 02/08/24
sitagliptin phosphate 100 mg tablet (Januvia) 100 mg PO DAILY 02/08/24
Review of Systems
-
History Source: Patient
Constitutional: Reports No Symptoms
EENT: Reports No Symptoms
Respiratory: Reports No Symptoms
Cardiac: Reports No Symptoms
Abdomen/GI: Reports No Symptoms
: Reports No Symptoms
Musculoskeletal: Reports No Symptoms
Skin: Reports No Symptoms
Neurological: Reports No Symptoms
Endocrine: Reports No Symptoms
Hematologic/Lymphatic: Reports No Symptoms
Psych: Reports No Symptoms
Physical Exam
Vital Signs
Vital Signs
Temp Pulse Resp BP Pulse Ox
99.1 F 83 13 137/97 95
02/08/24 00:50 02/08/24 01:15 12/06/24 01:15 02/08/24 01:07 02/08/24 01:17
Physical Exam
General: No Apparent Distress, Comfortable and Conversant
HEENT: NormoCephalic, Anicteric, Moist mucous membranes and Atraumatic
Respiratory: Clear
Cardiac: S1/S2 and Regular Rhythm
Breast: Deferred by me
GI: Soft, Non Tender, Non Distended and Normal Bowel Sounds
Rectal: Deferred by Provider
Genito-urinary: No costovertebral tender
Musculoskeletal: No Clubbing, No Cyanosis and No Edema
Skin: Warm
Neuro: AO x 3
Hematologic/Lymphatic: No Lymphadenopathy
Psych: Calm
Laboratory Results
-
02/08/24 00:54
02/08/24 00:54
Laboratory Results
Lactic Acid Cancelled 02/08/24 05:00
Total Bilirubin 0.6 mg/dl (0.2-1.3) 02/08/24 00:54
AST 17 U/L (17-59) 02/08/24 00:54
ALT 19 U/L (0-50) 02/08/24 00:54
Alkaline Phosphatase 129 U/L (38-126) H 02/08/24 00:54
Data Reviewed
-
Medical Tests (Nuc Med, Echo, EKG etc): Image Personally Visualized and interpreted
Lab Data: Labs Reviewed by me
Old Records: Reviewed
Impression/Plan
-
IMPRESSION:
Patient with h/o NIDDM,HTN, HLD who has ?parkinson and has been seen by EMS for weakness/falls multiple times was again seen by them for assistance today when he was noted to be incontinent, disheveled and weaker than usual. They noted foul
smelling malodorous urine. His labs are ok except for mild GEO and a positive u/a. No known history of instrumentation, no known BPH but has some incontinence in the past.
PLAN:
1. Cystitis - Patient with cystitis. No pelvic pain, perineal discomfort or dysuria. No obvious obstruction. No evidence of pyelo on exam and no systemic findings.
- admit to med/surg
-given +u/a and hematuria with GEO - will obtain CT a/p w/o iv contrast ot eval for kidney stones
- urine cultures
- IV cefepime started in ED, will continue for now
2. GEO - Cr 1.5, up from 1.0. BUN stable. Was admitted previously for dehydration and GEO but does not appear hypovolemic now.
- imaging as above to rule out post-renal
- continue IV NS for 500 ml overnight
- no nephrotoxins
3. Weakness - suspect secondary to cystitis. No focal deficits
- check orthostatics
- PT eval
4. DM II - hyperglycemic today
- a1c in am
- continue sitagliptin
- sliding scale insulin
DVT PPX - heparin sq
Code Status - DNR
[2024-02-08] MEDS: NSS 1000 IV ×2 (02:23→14:45)
[2024-02-08] MEDS: MAXIPIME 2000 MG IV (02:35)
--- NOTE | 2024-02-08 08:17 | PTCARENOTE ---
pt presents from ED via stretcher. pt is AAO to self. pt is disoriented to time and place. pt is forgetful, constantly trying to get OOB. pt placed on bed alarm, medsitter. call rojas within the reach. plan of care ongoing.
[2024-02-08 08:59] LABS: Glucose - Point of Care 289 mg/dl (70-99)
[2024-02-08] MEDS: ASPIR LOW (ENTERIC COATED) 81 MG PO (09:31)
[2024-02-08] MEDS: JANUVIA 100 MG PO (09:31)
[2024-02-08] MEDS: PROTONIX 40 MG PO ×2 (09:32→17:17)
[2024-02-08] MEDS: HEPARIN 5000 UNITS SC ×2 (09:32→15:22)
[2024-02-08] MEDS: NSS 500 IV (09:32)
[2024-02-08] MEDS: NORVASC 5 MG PO (09:32)
[2024-02-08] MEDS: NOVOLOG FLEXPEN-LOW RESISTANCE 3 UNITS SC (09:41)
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
--- NOTE | 2024-02-08 12:59 | W.PN.HOSP.TC ---
Today's Communication/Plan
-
cont IVF
follow creat
await cultures
Assessment / Plan
Assessment / Plan
pt is an 83 year old male
weakness--suspect due to UTI-- No obvious obstruction. No evidence of pyelo on exam and no systemic findings--await cultures--cont cefepime--PT/OT
GEO - Cr 1.5, up from 1.0 baseline--likely due to infection-- BUN stable--cont IVF and trend creat
DM II - hyperglycemic --check HGB [id number]--BVJ--ewix Januvia with GEO
dementia -- noted--does not appear to be on any meds
essential HTN--cont amlodipine
GERD -- cont PPI
HLD -- cont simvastatin
B12 deficiency--cont B12 supplements
DVT PPX - heparin sq
Code Status - DNR
Anticipated Discharge: > 48 hours
Subjective/Interval History
-
Date of Service: February 08, 2024
pt sitting in the Gisele chair without issue
Objective Data
-
Labs:
Laboratory Results
02/08/24
00:54
WBC 9.0
Hgb 14.6
Hct 43.3
Plt Count 166
Sodium 141
Potassium 4.2
Chloride 101
Carbon Dioxide 28
BUN 23 H
Creatinine 1.5 H
Glucose 322 H
Calcium 9.4
Total Bilirubin 0.6
AST 17
ALT 19
Alkaline Phosphatase 129 H
Vital Signs:
max temp for 24 hours
02/08/24
00:50
Temp 99.1 F
Vital Signs
Temp Pulse Resp BP Pulse Ox
98.1 F 79 16 155/94 94
02/08/24 07:00 02/08/24 09:32 02/08/24 07:07 02/08/24 09:32 02/08/24 11:35
I&O
02/07/24 02/08/24 02/09/24
06:59 06:59 06:59
Intake Total 1000 / 1000
Balance 1000 / 1000
Review of Systems
-
Unable to obtain full review of systems at this time due to: Dementia
Physical Exam
-
General: Well Developed, Well Nourished and No Apparent Distress
HEENT: Normocephalic and Atraumatic
Respiratory: Clear to Auscultation; Negative Wheezes or Rhonchi
Cardiac: Regular Rhythm and S1/S2; Negative Murmur
GI: Soft, Nontender, Nondistended and Normal Bowel Sounds
Musculoskeletal: No Clubbing, No Cyanosis and No Edema
Neuro: Awake
Psych: Calm
[2024-02-08] MEDS: FEOSOL 325 MG PO (13:00)
[2024-02-08] MEDS: NOVOLOG FLEXPEN-LOW RESISTANCE 4 UNITS SC ×2 (13:01→17:17)
[2024-02-08] MEDS: STERILE WATER FOR INJECTION 10 ML IV (13:10)
[2024-02-08] MEDS: MAXIPIME 1000 MG IV (13:10)
[2024-02-08 13:13] LABS: Glucose - Point of Care 312 mg/dl (70-99)
--- NOTE | 2024-02-08 16:02 | PTOTSP ---
SPEECH THERAPY SWALLOW EVALUATION:
Patient exhibits grossly functional to mild oropharyngeal dysphagia, likely chronic related to dementia/Parkinson's and acutely exacerbated by cystitis. Patient remains at risk for aspiration due to confusion. WBC WNL. No overt signs of aspiration
at this time. Recommend continue Regular texture diet, thin liquids. Medications as best tolerated. Aspiration precautions: Upright positioning; Small single sips/bites; Slow rate of intake; 100% supervision with meals and mild assistance as needed.
Monitor for signs of aspiration; D/c oral diet if any decline in mental or respiratory status. ST to continue to follow, monitor diet tolerance and modify as appropriate, determine indication for instrumental assessment of swallowing as appropriate.
RECOMMEND:
1) Regular texture diet, thin liquids
2) Medications as best tolerated
3) Aspiration precautions: Upright positioning; Small single sips/bites; Slow rate of intake; 100% supervision with meals and mild assistance as needed. Monitor for signs of aspiration; D/c oral diet if any decline in mental or respiratory status
4) ST to follow
5) Oral care 3x/day
[2024-02-08 16:45] LABS: Glucose - Point of Care 300 mg/dl (70-99)
[2024-02-08] MEDS: LIPITOR 20 MG PO (17:23)
[2024-02-08] MEDS: ZYPREXA 5 MG PO (19:53)
[2024-02-08 21:18] LABS: Glucose - Point of Care 207 mg/dl (70-99)
[2024-02-09] MEDS: NSS 1000 IV ×3 (00:19→21:39)
[2024-02-09] MEDS: HEPARIN 5000 UNITS SC ×3 (00:20→16:29)
[2024-02-09] MEDS: MAXIPIME 1000 MG IV ×2 (01:31→14:21)
[2024-02-09] MEDS: STERILE WATER FOR INJECTION 10 ML IV ×2 (01:31→14:21)
[2024-02-09 07:25] VITALS: BP 139/75; BP 151/85; PULSE 97
[2024-02-09 07:26] LABS: Glucose - Point of Care 267 mg/dl (70-99)
[2024-02-09 07:27] LABS: Hematocrit 44.2 % (39.0-52.0); Mean Corp Hgb Conc. 33.9 g/dL (33.0-37.0); Mean Corpuscular Hgb 32.7 pg (27.0-31.0); Mean Corpuscular Volume 96.3 fL (80.0-94.0); Mean Platelet Volume 11.8 fL (7.4-10.4); Platelet Count 155 10^3/uL (130-400); Red Blood Cell Count 4.59 10^6/uL (4.70-6.10); Red Cell Dist. Width 12.3 % (11.5-14.5); White Blood Cell Count 12.9 10^3/uL (4.8-10.8)
[2024-02-09 07:48] LABS: Blood Urea Nitrogen 17 mg/dl (9-20); Calcium 8.8 mg/dl (8.4-10.2); Carbon Dioxide 24 mmol/L (22-30); Chloride 104 mmol/L (98-107); Estimated Creatinine Clearance 54 ml/min; Glucose 254 mg/dl (70-99); Magnesium 1.8 mg/dl (1.6-2.3); Potassium 3.7 mmol/L (3.5-5.1); Sodium 139 mmol/L (135-145); eGFR > 60.00
[2024-02-09] MEDS: NOVOLOG FLEXPEN-LOW RESISTANCE 3 UNITS SC ×3 (08:00→18:13)
[2024-02-09] MEDS: JANUVIA PO ×2 (09:30→09:36)
[2024-02-09] MEDS: NORVASC PO ×2 (09:30→09:36)
[2024-02-09] MEDS: PROTONIX PO ×3 (09:30→17:13)
[2024-02-09] MEDS: ASPIR LOW (ENTERIC COATED) PO ×2 (09:30→09:36)
[2024-02-09 11:30] VITALS: BP 145/82
[2024-02-09] MEDS: ZOFRAN 4 MG IV (11:31)
[2024-02-09] MEDS: TYLENOL/FEVERALL 650 MG RECTAL ×2 (11:55→20:22)
[2024-02-09] MEDS: FEOSOL PO (12:00)
[2024-02-09 12:12] LABS: Glucose - Point of Care 268 mg/dl (70-99)
--- NOTE | 2024-02-09 12:13 | W.PN.HOSP.TC ---
Today's Communication/Plan
-
check stool for norovirus
check blood cultures
cont cefepime
Assessment / Plan
Assessment / Plan
pt is an 83 year old male
weakness--suspect due to UTI, gm neg bacilli but no ID of bacteria yet- No evidence of pyelo on exam and no systemic findings---cont cefepime--PT/OT
n/v/d--check stool for norovirus, cont antiemetics, check bood culture--IVF
GEO - Cr 1.5 on admission, improved to 1.2 (1.0 baseline)--likely due to infection-- BUN stable--cont IVF and trend creat
DM II - hyperglycemic --check HGB X2S--JPI--ddhl Januvia with GEO
dementia -- noted--does not appear to be on any meds
essential HTN--cont amlodipine
GERD -- cont PPI
HLD -- cont simvastatin
B12 deficiency--cont B12 supplements
DVT PPX - heparin sq
Code Status - DNR
Anticipated Discharge: > 48 hours
Subjective/Interval History
-
Date of Service: February 09, 2024
pt had 2 episodes of projectile vomiting and 1 episode of loose stool today
Objective Data
-
Labs:
Laboratory Results
02/09/24
06:07
WBC 12.9 H
Hgb 15.0
Hct 44.2
Plt Count 155
Sodium 139
Potassium 3.7
Chloride 104
Carbon Dioxide 24
BUN 17
Creatinine 1.2
Glucose 254 H
Calcium 8.8
Vital Signs:
max temp for 24 hours
02/08/24
15:00
Temp 98.0 F
Vital Signs
Temp Pulse Resp BP Pulse Ox
100.1 F 92 18 145/82 97
02/09/24 11:30 02/09/24 11:30 02/09/24 11:30 02/09/24 11:30 02/09/24 11:30
I&O
02/08/24 02/09/24 02/10/24
06:59 06:59 06:59
Intake Total 1000 / 1000 1835 / 1835
Output Total 125 / 125
Balance 1000 / 1000 1710 / 1710
Review of Systems
-
Unable to obtain full review of systems at this time due to: Acuity
Physical Exam
-
General: Well Developed and Well Nourished; Negative Comfortable (appears uncomfortable, shivering)
HEENT: Normocephalic and Atraumatic; Negative Oxygen
Respiratory: Clear to Auscultation; Negative Wheezes or Rhonchi
Cardiac: Regular Rhythm and S1/S2; Negative Murmur
GI: Soft, Nontender, Nondistended and Normal Bowel Sounds
Musculoskeletal: No Clubbing, No Cyanosis and No Edema
Skin: Warm
Neuro: Awake and Alert
Psych: Calm
--- NOTE | 2024-02-09 15:15 | PTCARENOTE ---
Received patient this am AAOx1. Pt has one episode of projectile vomiting at 0715. Pt then had 3 more episodes of projectile vomiting. Pt also having frequent stools. Dr. Esparza made aware. Pt medicated with Zofran IV at 1130 with relief. Pt
spike a temp of 100.1 at 11:30. Pt medicated with Tylenol Suppository at 1155. Temp at 1415 was 102-
--- NOTE | 2024-02-09 15:20 | PTCARENOTE ---
Received a call from lab. Pt is positive for Norovirus. Dr. Esparza made aware at 1405. Cont to assess patient status.
[2024-02-09 15:50] VITALS: BP 100/69
[2024-02-09 17:58] LABS: Glucose - Point of Care 265 mg/dl (70-99)
[2024-02-09 18:00] VITALS: BP 107/70
[2024-02-09] MEDS: LIPITOR PO (18:07)
[2024-02-09 20:11] VITALS: BP 131/90
[2024-02-09 22:06] LABS: Glucose - Point of Care 241 mg/dl (70-99)
[2024-02-09 23:48] VITALS: BP 138/61
[2024-02-10] MEDS: HEPARIN 5000 UNITS SC ×4 (00:47→23:23)
[2024-02-10] MEDS: STERILE WATER FOR INJECTION 10 ML IV (01:48)
[2024-02-10] MEDS: MAXIPIME 1000 MG IV (01:48)
[2024-02-10 05:55] LABS: Blood Urea Nitrogen 28 mg/dl (9-20); Calcium 8.1 mg/dl (8.4-10.2); Carbon Dioxide 19 mmol/L (22-30); Chloride 109 mmol/L (98-107); Estimated Creatinine Clearance 38 ml/min; Glucose 275 mg/dl (70-99); Magnesium 1.6 mg/dl (1.6-2.3); Potassium 4.2 mmol/L (3.5-5.1); Sodium 138 mmol/L (135-145); eGFR 39.75
[2024-02-10 06:10] LABS: Hematocrit 39.8 % (39.0-52.0); Hemoglobin 12.9 g/dL (13.0-18.0); Mean Corp Hgb Conc. 32.4 g/dL (33.0-37.0); Mean Corpuscular Hgb 31.8 pg (27.0-31.0); Mean Platelet Volume 11.5 fL (7.4-10.4); Platelet Count 124 10^3/uL (130-400); Red Blood Cell Count 4.06 10^6/uL (4.70-6.10); Red Cell Dist. Width 12.8 % (11.5-14.5); White Blood Cell Count 7.4 10^3/uL (4.8-10.8)
[2024-02-10 07:15] VITALS: BP 143/79
[2024-02-10 08:21] LABS: Glucose - Point of Care 232 mg/dl (70-99)
[2024-02-10] MEDS: NSS 1000 IV (08:39)
[2024-02-10] MEDS: NOVOLOG FLEXPEN-LOW RESISTANCE 2 UNITS SC (08:39)
[2024-02-10] MEDS: ASPIR LOW (ENTERIC COATED) PO (08:47)
[2024-02-10] MEDS: JANUVIA PO (08:48)
[2024-02-10] MEDS: NORVASC PO (08:48)
[2024-02-10] MEDS: PROTONIX PO (08:48)
[2024-02-10] MEDS: PROTONIX 40 MG PO ×2 (08:50→17:10)
[2024-02-10] MEDS: NORVASC 5 MG PO (08:52)
[2024-02-10] MEDS: JANUVIA 100 MG PO (08:52)
[2024-02-10] MEDS: ASPIR LOW (ENTERIC COATED) 81 MG PO (08:52)
[2024-02-10] MEDS: SODIUM BICARBONATE 1075 MEQ IV ×2 (11:49→22:36)
--- NOTE | 2024-02-10 12:06 | W.PN.HOSP.TC ---
Today's Communication/Plan
-
cont ancef
likely can change to oral med at d/c
family wants [facility]
Assessment / Plan
Assessment / Plan
pt is an 83 year old male
weakness--suspect due to Kleb pneumo UTI, also positive for Norovirus (had n/v/d)- No evidence of pyelo on exam and no systemic findings---cefepime changed to ancef--IVF changed to include bicarb--PT/OT-- wants [facility]
GEO - Cr 1.5 on admission, improved to 1.2 (1.0 baseline), now up to 1.7--likely due to infection, diarrhea, vomiting---cont IVF and trend creat
DM II - hyperglycemic --check HGB K8B--RBK--uiwk Januvia with GEO
dementia -- noted--does not appear to be on any meds
essential HTN--cont amlodipine
GERD -- cont PPI
HLD -- cont simvastatin
B12 deficiency--cont B12 supplements
DVT PPX - heparin sq
Code Status - DNR
Anticipated Discharge: Within 24 hours
Subjective/Interval History
-
Date of Service: February 10, 2024
pt without c/o-- states that he is better
Objective Data
-
Labs:
Laboratory Results
02/10/24
04:46
WBC 7.4
Hgb 12.9 L
Hct 39.8
Plt Count 124 L
Sodium 138
Potassium 4.2
Chloride 109 H
Carbon Dioxide 19 L
BUN 28 H
Creatinine 1.7 H
Glucose 275 H
Calcium 8.1 L
Vital Signs:
max temp for 24 hours
02/09/24
14:15
Temp 102.1 F H
Vital Signs
Temp Pulse Resp BP Pulse Ox
98.2 F 82 18 143/79 96
02/10/24 07:15 02/10/24 07:15 02/10/24 07:15 02/10/24 07:15 02/10/24 07:15
I&O
02/09/24 02/10/24 02/11/24
06:59 06:59 06:59
Intake Total 1835 / 1835 2200 / 2200
Output Total 125 / 125 750 / 750
Balance 1710 / 1710 1450 / 1450
Review of Systems
-
All other systems: Reviewed and negative
Physical Exam
-
General: Well Developed, Well Nourished and No Apparent Distress
HEENT: Normocephalic and Atraumatic
Respiratory: Clear to Auscultation; Negative Wheezes or Rhonchi
Cardiac: Regular Rhythm and S1/S2; Negative Murmur
GI: Soft, Nontender, Nondistended and Normal Bowel Sounds
Musculoskeletal: No Clubbing, No Cyanosis and No Edema
Neuro: Awake and Alert
Psych: Calm
[2024-02-10 12:58] LABS: Glucose - Point of Care 222 mg/dl (70-99)
[2024-02-10] MEDS: NOVOLOG FLEXPEN-LOW RESISTANCE 300 UNITS SC (12:58)
[2024-02-10] MEDS: FEOSOL 325 MG PO (12:59)
[2024-02-10] MEDS: ANCEF 5 IV ×2 (12:59→21:06)
[2024-02-10 15:35] VITALS: BP 137/70; PULSE 85
[2024-02-10] MEDS: LIPITOR 20 MG PO (17:10)
[2024-02-10 17:11] LABS: Glucose - Point of Care 161 mg/dl (70-99)
[2024-02-10] MEDS: NOVOLOG FLEXPEN-LOW RESISTANCE 1 UNITS SC (17:13)
[2024-02-10 17:35] VITALS: BP 137/70
[2024-02-10 21:59] LABS: Glucose - Point of Care 159 mg/dl (70-99)
[2024-02-10 22:22] VITALS: BP 114/75
[2024-02-10 23:22] VITALS: BP 114/75
[2024-02-11] MEDS: ANCEF 5 IV (05:12)
[2024-02-11 07:15] VITALS: BP 108/60
[2024-02-11 07:30] LABS: Glucose - Point of Care 149 mg/dl (70-99)
[2024-02-11] MEDS: NOVOLOG FLEXPEN-LOW RESISTANCE SC ×2 (07:58→12:25)
--- NOTE | 2024-02-11 08:40 | W.PN.HOSP.TC ---
Today's Communication/Plan
-
HEad CT
CM to establish rehab
Assessment / Plan
Assessment / Plan
83yo M with PMHx of dementia, Parkinsons, HLD, DM admitted with worsening weakness and foul smelling urrine, managed for UTI and GEO, developed nausea with vomiting and positive for Norovirus
A/P
#UTI
milf bilateral perinephric stranding and diffuse urinary bladder wall thickening withuot hydronephrosis or nephrolithiasis on CT
UCx pending
Ceftriaxone
#GEO
Cr baseline between 1.2-1.5
COmbined dehydration 2/2 vomiting, poor oral intake
follow Cr on IVF
#Ambulatory dysfunction
PT/OT and rehab
Head CT
#DM type 2 with nephropathy
Accuchcks, insulin SS, DM diet
#Parkinson disease
#Dementia, most likely parkisons
#MALLIKA
#GERD
#Essential HTN
#B12 deficiency
#HLD
cont home meds
#2.7cm AAA
follow wup with PCP upon d/c
#2.4 SImple L renal cyst
#Chonic lumbas spine compression Fx L2. L3
outpatient eval for OP with PCP
DVT ppx hep
DNR/DNI
I have spent at least 38min reviewing chart, test results and direct patient care
Anticipated Discharge: Within 24 hours
Subjective/Interval History
-
Date of Service: February 11, 2024
Objective Data
-
Labs:
Laboratory Results
02/11/24
08:12
Sodium Pending
Potassium Pending
Chloride Pending
Carbon Dioxide Pending
BUN Pending
Creatinine Pending
Glucose Pending
Calcium Pending
Vital Signs:
Vital Signs
Temp Pulse Resp BP Pulse Ox
98.1 F 69 16 108/60 95
02/11/24 07:15 02/11/24 07:15 02/11/24 07:15 02/11/24 07:15 02/11/24 07:15
I&O
02/10/24 02/11/24 02/12/24
06:59 06:59 06:59
Intake Total 2200 / 2200 1600 / 1600
Output Total 750 / 750
Balance 1450 / 1450 1600 / 1600
Review of Systems
-
History Source: Patient
All other systems: Reviewed and negative
Physical Exam
-
General: No Apparent Distress
HEENT: Normocephalic
Respiratory: Clear to Auscultation
Cardiac: Regular Rhythm
GI: Soft, Nontender and Nondistended
Genito-urinary: No Costovertebral Tender
Musculoskeletal: No Clubbing, No Cyanosis and No Edema
Skin: Warm
Neuro: Awake, Alert, Oriented, AO x 3 and No Motor Deficits
Psych: Calm and Apparent Dementia
[2024-02-11] MEDS: PROTONIX 40 MG PO ×2 (08:43→17:26)
[2024-02-11] MEDS: HEPARIN 5000 UNITS SC ×3 (08:43→23:21)
[2024-02-11] MEDS: ASPIR LOW (ENTERIC COATED) 81 MG PO (08:43)
[2024-02-11] MEDS: NORVASC 5 MG PO (08:43)
[2024-02-11] MEDS: JANUVIA 100 MG PO (08:43)
[2024-02-11 09:00] LABS: Blood Urea Nitrogen 22 mg/dl (9-20); Carbon Dioxide 26 mmol/L (22-30); Chloride 103 mmol/L (98-107); Estimated Creatinine Clearance 50 ml/min; Glucose 162 mg/dl (70-99); Potassium 3.6 mmol/L (3.5-5.1); Sodium 138 mmol/L (135-145); eGFR 54.85
[2024-02-11] MEDS: SODIUM BICARBONATE 1075 MEQ IV (09:02)
[2024-02-11] MEDS: CEFTIN 500 MG PO ×2 (10:16→20:41)
[2024-02-11] MEDS: FEOSOL 325 MG PO (11:39)
[2024-02-11 12:22] LABS: Glucose - Point of Care 125 mg/dl (70-99)
--- NOTE | 2024-02-11 14:30 | CM ---
Addendum entered by Di Thornton 02/11/24 14:59:
Rec call from Melinda from [facility] - opened case
Stated multiple 911 calls from for out of bed transfer assistance
She will be following up with patient regarding resources.
Original Note:
Patient seen at bedside with
Referrals placed in [facility].
[facility] patient, bed avail on Sunday
Spoke with . Agreeable to [facility] tt Dr. Kearns
transportation forms on chart
PLAN: [facility]
Report #: [phone]
Fax #: [phone]
transportation forms on chart.
--- NOTE | 2024-02-11 14:58 | PN.CDI ---
Addendum entered and electronically signed by Wily Arellano MD 02/11/24 17:31:
no change to documentation will be done
Original Note:
CDI
- -
CDI:
Physician Documentation Request
Admit Date: 02/08/24 13:09
Dear Doctor Adan,
Please review the following and provide your response in the progress notes.
Clinical Indicators:
Pt admitted with UTI-on ceftriaxone / GEO now with Norovirus
02/08 @ 1415 Tmax 102.1, HR 97 on admission and 119 on 02/08 @ 2010, WBC 12.9 on 02/08 @ 606
Please clarify which of the following most accurately describes the status of the patient's infection:
Sepsis -evolved during hospitalization
- Systemic manifestations of infection, with 2 or more SIRS criteria which include:
- Fever >100.4 degrees F or hypothermia < 96.8 degrees F
- Leukocytosis - WBC > 12,000 or leukopenia - WBC < 4,000 or > 10% bands
- Tachycardia > 90 beats per minute
- Tachypnea - RR > 20 breaths per minute or PaCO2 , 32mmHg
Sepsis-POA
UTI/Norovirus only , Without Systemic Illness
Other
Use of terms such as suspected, likely, concern for, or probable (associated with a specific diagnosis that is being evaluated, monitored, or treated as if it exists) are acceptable and can be coded in the inpatient setting, when documented at the
time of discharge.
Thank you,
Radha Mueller RN
CDI Specialist
[facility]
Please use your independent medical judgment in providing your response.
[2024-02-11 15:29] VITALS: BP 131/74
[2024-02-11 17:08] VITALS: BP 125/70; BP 128/74; BP 131/74; PULSE 73; PULSE 76; PULSE 80
[2024-02-11 17:19] LABS: Glucose - Point of Care 174 mg/dl (70-99)
[2024-02-11] MEDS: LIPITOR 20 MG PO (17:26)
[2024-02-11] MEDS: NOVOLOG FLEXPEN-LOW RESISTANCE 1 UNITS SC (17:26)
[2024-02-11 23:26] LABS: Glucose - Point of Care 184 mg/dl (70-99)
[2024-02-11 23:47] VITALS: BP 117/67
[2024-02-12 06:00] VITALS: BMI 26.3
[2024-02-12 07:00] VITALS: BP 152/94
[2024-02-12 07:17] LABS: Glucose - Point of Care 153 mg/dl (70-99)
[2024-02-12 08:48] LABS: Hematocrit 40.3 % (39.0-52.0); Hemoglobin 13.4 g/dL (13.0-18.0); Mean Corp Hgb Conc. 33.3 g/dL (33.0-37.0); Mean Corpuscular Hgb 31.9 pg (27.0-31.0); Platelet Count 130 10^3/uL (130-400); Red Cell Dist. Width 12.5 % (11.5-14.5); White Blood Cell Count 5.7 10^3/uL (4.8-10.8)
[2024-02-12] MEDS: JANUVIA 100 MG PO (09:18)
[2024-02-12] MEDS: ASPIR LOW (ENTERIC COATED) 81 MG PO (09:18)
[2024-02-12] MEDS: HEPARIN 5000 UNITS SC ×2 (09:18→17:28)
[2024-02-12] MEDS: NORVASC 5 MG PO (09:18)
[2024-02-12] MEDS: CEFTIN 500 MG PO ×2 (09:18→19:56)
[2024-02-12] MEDS: PROTONIX 40 MG PO ×2 (09:19→17:23)
[2024-02-12] MEDS: NOVOLOG FLEXPEN-LOW RESISTANCE 1 UNITS SC (09:20)
--- NOTE | 2024-02-12 10:28 | CM ---
Addendum entered by Di Thornton 02/12/24 15:50:
IMM explained & signed. In chart
Original Note:
Spoke with patient .
Bed available at [facility] Sunday.
PLAN: [facility]
Report #: [phone]
Fax #: [phone]
transportation forms on chart.
[2024-02-12 11:26] LABS: Glucose - Point of Care 301 mg/dl (70-99)
--- NOTE | 2024-02-12 12:26 | W.PN.HOSP.TC ---
Today's Communication/Plan
-
As per CM - accepted to rehab for 02/13/24
Assessment / Plan
Assessment / Plan
83yo M with PMHx of dementia, Parkinsons, HLD, DM admitted with worsening weakness and foul smelling urine, managed for UTI and GEO, developed nausea with vomiting and positive for Norovirus. Ucx resulted K.pneumonia sensitive to cephalosporins,
reasonable to d/c on Cefuroxime. Pending acceptance to rehab
A/P
#UTI
milf bilateral perinephric stranding and diffuse urinary bladder wall thickening withuot hydronephrosis or nephrolithiasis on CT
Cefuroxime as per Ucx
#GEO
Cr baseline between 1.2-1.5
COmbined dehydration 2/2 vomiting, poor oral intake
follow Cr on IVF
#Ambulatory dysfunction
PT/OT and rehab
Head CT
#DM type 2 with nephropathy
Accuchcks, insulin SS, DM diet
#Parkinson disease
#Dementia, most likely parkisons
#MALLIKA
#GERD
#Essential HTN
#B12 deficiency
#HLD
cont home meds
#2.7cm AAA
follow wup with PCP upon d/c
#2.4 SImple L renal cyst
#Chronic lumbar spine compression Fx L2. L3
outpatient eval for OP with PCP
DVT ppx hep
DNR/DNI
I have spent at least 38min reviewing chart, test results and direct patient care
Anticipated Discharge: Within 24 hours
Subjective/Interval History
-
Date of Service: February 12, 2024
Objective Data
-
Labs:
Laboratory Results
02/12/24
08:13
WBC 5.7
Hgb 13.4
Hct 40.3
Plt Count 130
Vital Signs:
Vital Signs
Temp Pulse Resp BP Pulse Ox
97.4 F 85 16 152/94 98
02/12/24 07:00 02/12/24 07:00 02/12/24 07:00 02/12/24 07:00 02/12/24 07:00
I&O
02/11/24 02/12/24 02/13/24
06:59 06:59 06:59
Intake Total 1600 / 1600 1435 / 1435
Output Total 125 / 125
Balance 1600 / 1600 1310 / 1310
Review of Systems
-
History Source: Patient
All other systems: Reviewed and negative
Physical Exam
-
General: No Apparent Distress
Respiratory: Clear to Auscultation
GI: Soft, Nontender and Nondistended
Neuro: Awake, Alert, Oriented and AO x 3
Psych: Calm and Apparent Dementia
[2024-02-12] MEDS: FEOSOL 325 MG PO (14:10)
[2024-02-12] MEDS: NOVOLOG FLEXPEN-LOW RESISTANCE 4 UNITS SC (14:11)
[2024-02-12 15:00] VITALS: BP 134/81
[2024-02-12 15:45] VITALS: BP 130/87; PULSE 90; O2SAT 94
[2024-02-12 15:46] VITALS: BP 130/87; PULSE 90; O2SAT 94
[2024-02-12 17:10] LABS: Glucose - Point of Care 222 mg/dl (70-99)
[2024-02-12] MEDS: NOVOLOG FLEXPEN-LOW RESISTANCE 2 UNITS SC (17:30)
[2024-02-12] MEDS: LIPITOR 20 MG PO (17:30)
[2024-02-12 23:05] LABS: Glucose - Point of Care 145 mg/dl (70-99)
[2024-02-12 23:10] VITALS: BP 134/82
[2024-02-13] MEDS: HEPARIN 5000 UNITS SC ×2 (00:50→08:32)
[2024-02-13 07:00] VITALS: BP 147/83
--- NOTE | 2024-02-13 07:53 | W.PN.HOSP.TC ---
Today's Communication/Plan
-
dc
Assessment / Plan
Assessment / Plan
83yo M with PMHx of dementia, Parkinsons, HLD, DM admitted with worsening weakness and foul smelling urine, managed for UTI and GEO, developed nausea with vomiting and positive for Norovirus. Ucx resulted K.pneumonia sensitive to cephalosporins,
reasonable to d/c on Cefuroxime. Has intermittent episodes of sundowning without significant behavioral disturbance. Afebrile for >48h before discharge. Medically stable for d/c
A/P
#UTI
mild bilateral perinephric stranding and diffuse urinary bladder wall thickening without hydronephrosis or nephrolithiasis on CT
Cefuroxime as per Ucx
#GEO
resolved
Cr baseline between 1.2-1.5
Combined dehydration 2/2 vomiting, poor oral intake
follow Cr on IVF
#Ambulatory dysfunction
PT/OT and rehab
Head CT
#DM type 2 with nephropathy
Accuchcks, insulin SS, DM diet
#Parkinson disease
#Dementia, most likely parkisons
#MALLIKA
#GERD
#Essential HTN
#B12 deficiency
#HLD
cont home meds
#2.7cm AAA
follow wup with PCP upon d/c
#2.4 Simple L renal cyst
#Chronic lumbar spine compression Fx L2. L3
outpatient eval for OP with PCP
DVT ppx hep
DNR/DNI
I have spent at least 38min reviewing chart, test results and direct patient care
Anticipated Discharge: Today
Subjective/Interval History
-
Date of Service: February 13, 2024
Objective Data
-
Vital Signs:
Vital Signs
Temp Pulse Resp BP Pulse Ox
97.9 F 76 16 134/82 95
02/12/24 23:10 02/12/24 23:10 02/12/24 23:10 02/12/24 23:10 02/13/24 05:13
I&O
02/12/24 02/13/24 02/14/24
06:59 06:59 06:59
Intake Total 1435 / 1435 480 / 480
Output Total 125 / 125
Balance 1310 / 1310 480 / 480
Review of Systems
-
Unable to obtain full review of systems at this time due to: Dementia
History Source: Patient
Physical Exam
-
General: No Apparent Distress
HEENT: Normocephalic
Cardiac: Regular Rhythm
GI: Soft
Musculoskeletal: No Clubbing, No Cyanosis and No Edema
Neuro: Awake, Alert and Oriented (not to place)
Psych: Calm and Apparent Dementia
--- NOTE | 2024-02-13 07:57 | W.DCSUMMARY ---
Discharge Summary
Discharge Data
Date of Admission: 02/08/24
Date of Discharge: 02/13/24
-
Pending Results: No
Hospital Course
83yo M with PMHx of dementia, Parkinsons, HLD, DM admitted with worsening weakness and foul smelling urine, managed for UTI and GEO, developed nausea with vomiting and positive for Norovirus. Ucx resulted K.pneumonia sensitive to cephalosporins,
reasonable to d/c on Cefuroxime. Has intermittent episodes of sundowning without significant behavioral disturbance. Afebrile for >48h before discharge. Medically stable for d/c
I have spent at least 38min reviewing chart, test results and direct patient care
Patient was managed for:
#UTI
#GEO
#Ambulatory dysfunction
#DM type 2 with nephropathy
#Parkinson disease
#Dementia, most likely parkisons
#MALLIKA
#GERD
#Essential HTN
#B12 deficiency
#HLD
#2.7cm AAA
#2.4 Simple L renal cyst
#Chronic lumbar spine compression Fx L2, L3
Discharge Plan
-
Patient Disposition: [facility]/SNF
Discharge Diagnosis/Procedures: General weakness due to Klebsiella pneumoniae urinary tract infection and stool positive for norovirus, acute kidney injury, type 2 diabetes mellitus, dementia, essential hypertension, gastroesophageal reflux disease,
hyperlipidemia, B12 deficiency
Condition: Fair
Diet: As tolerated and Diabetic, Carb Controlled
Activity: As tolerated
Driving Restrictions: No driving
Bathing Restrictions: None
Referrals:
Forrest Davis MD [Family Provider] - in less than 1 week (Establish monitoring for 2.7cm AAA)
Prescriptions:
New
cefuroxime axetil 500 mg Tablet
500 mg PO BID Qty: 14 0RF
Continued
amlodipine 5 mg tablet
5 mg PO DAILY
simvastatin 40 mg tablet
40 mg PO QPM
cyanocobalamin (vitamin B-12) 500 mcg Tablet
1,000 mcg PO DAILY
ferrous sulfate 325 mg (65 mg iron) tablet
325 mg PO NOON Qty: 30 0RF
aspirin 81 mg Tablet,Delayed Release (Dr/Ec)
81 mg PO DAILY
pantoprazole 40 mg tablet,delayed release (DR/EC)
40 mg PO BID@0800,1700
Januvia 100 mg Tablet
100 mg PO DAILY
ascorbic acid (vitamin C) [Vitamin C] 500 mg tablet
250 mg PO NOON
Discharge Orders:
Discharge Patient (As Directed); Ordered 02/13/24
Ordered By: Wily Arellano
Discharge Date and Time
Print Language: JAPANESE
[2024-02-13 08:05] LABS: Glucose - Point of Care 152 mg/dl (70-99)
[2024-02-13] MEDS: CEFTIN 500 MG PO (08:32)
[2024-02-13] MEDS: NOVOLOG FLEXPEN-LOW RESISTANCE 1 UNITS SC ×2 (08:32→12:16)
[2024-02-13] MEDS: JANUVIA 100 MG PO (08:32)
[2024-02-13] MEDS: ASPIR LOW (ENTERIC COATED) 81 MG PO (08:32)
[2024-02-13] MEDS: PROTONIX 40 MG PO (08:32)
[2024-02-13] MEDS: NORVASC 5 MG PO (08:32)
--- NOTE | 2024-02-13 10:28 | CM ---
Transport set for noon today to [facility]
Notified Kim at [facility] & called
PLAN: [facility]
Report #: [phone]
Fax #: [phone]
transportation forms on chart.
[2024-02-13 11:17] LABS: Glucose - Point of Care 152 mg/dl (70-99)
[2024-02-13 11:30] VITALS: BP 140/86; BP 143/86; PULSE 73
[2024-02-13] MEDS: FEOSOL PO (12:15)
[2024-02-13 12:22] VITALS: BP 136/82
== END 2024-02-13 12:37 | DRG 683 ==
LOC: 2 NORTH 13:09
PROVIDERS: Internal Medicine; ADMITTING PHYSICIAN Internal Medicine; ATTENDING PHYSICIAN Internal Medicine; EMERGENCY PHYSICIAN Emergency Medicine; FAMILY PHYSICIAN Family Medicine
DX: N17.9 Acute kidney failure, unspecified (principal); A08.11 Acute gastroenteropathy due to Norwalk agent; N30.01 Acute cystitis with hematuria; F05 Delirium due to known physiological condition; M48.56XA Collapsed vertebra, not elsewhere classified, lumbar region, initial encounter for fracture; B96.1 Klebsiella pneumoniae [K. pneumoniae] as the cause of diseases classified elsewhere; F02.80 Dementia in other diseases classified elsewhere, unspecified severity, without behavioral disturbance, psychotic disturbance, mood disturbance, and anxiety; G20.A1 Parkinson's disease without dyskinesia, without mention of fluctuations; I10 Essential (primary) hypertension; K21.9 Gastro-esophageal reflux disease without esophagitis; E78.00 Pure hypercholesterolemia, unspecified; E86.0 Dehydration; E53.8 Deficiency of other specified B group vitamins; E11.21 Type 2 diabetes mellitus with diabetic nephropathy; I71.40 Abdominal aortic aneurysm, without rupture, unspecified; N28.1 Cyst of kidney, acquired; E11.65 Type 2 diabetes mellitus with hyperglycemia; Z66 Do not resuscitate; Z79.84 Long term (current) use of oral hypoglycemic drugs; Z79.82 Long term (current) use of aspirin
CPT/HCPCS: 70450; 74176; 80048; 80053; 81003; 81015; 82962; 83605; 83735; 85025; 85027; 87040; 87077; 87086; 87186; 87798; 92526; 92610; 93005; 96361; 96374; 97110; 97116; 97163; 97167; 97530; 97535; 99285

== ENCOUNTER → 2024-02-15 12:19 | Outpatient (REF) | payer OTHER, MEDICARE, SELFPAY ==
[2024-02-15 13:27] LABS: % Basophils 0.6 % (0-2); % Eosinophils 4.7 % (0-6); % Immature Granulocytes 0.5 % (0-0.5); % Lymphocytes 29.6 % (20.5-51.1); % Monocytes 10.7 % (1.7-9.3); % Neutrophils 53.9 % (42.2-75.2); Absolute Basophils 0.1 10^3/uL (0-0.2); Absolute Eosinophils 0.4 10^3/uL (0-0.7); Absolute Lymphocytes 2.3 10^3/uL (1.2-3.4); Absolute Monocytes 0.8 10^3/uL (0.1-0.6); Absolute Neutrophils 4.2 10^3/uL (1.4-6.5); Hematocrit 37.7 % (39.0-52.0); Hemoglobin 12.5 g/dL (13.0-18.0); Mean Corp Hgb Conc. 33.2 g/dL (33.0-37.0); Mean Corpuscular Hgb 32.2 pg (27.0-31.0); Mean Corpuscular Volume 97.2 fL (80.0-94.0); Mean Platelet Volume 11.6 fL (7.4-10.4); Nucleated Red Blood Cells % 0 % (-); Platelet Count 161 10^3/uL (130-400); Red Blood Cell Count 3.88 10^6/uL (4.70-6.10); Red Cell Dist. Width 12.7 % (11.5-14.5); White Blood Cell Count 7.9 10^3/uL (4.8-10.8)
[2024-02-15 13:30] LABS: Blood Urea Nitrogen 21 mg/dl (9-20); Calcium 8.6 mg/dl (8.4-10.2); Carbon Dioxide 27 mmol/L (22-30); Chloride 104 mmol/L (98-107); Glucose 219 mg/dl (70-99); Potassium 4.2 mmol/L (3.5-5.1); Sodium 139 mmol/L (135-145); eGFR 54.85
== END ==
LOC: OLABP 12:19
PROVIDERS: ATTENDING PHYSICIAN Family Medicine
DX: D50.9 Iron deficiency anemia, unspecified (principal); Z86.73 Personal history of transient ischemic attack (TIA), and cerebral infarction without residual deficits; F03.90 Unspecified dementia, unspecified severity, without behavioral disturbance, psychotic disturbance, mood disturbance, and anxiety; E11.40 Type 2 diabetes mellitus with diabetic neuropathy, unspecified; I10 Essential (primary) hypertension; N18.30 Chronic kidney disease, stage 3 unspecified; N17.9 Acute kidney failure, unspecified; I71.40 Abdominal aortic aneurysm, without rupture, unspecified
CPT/HCPCS: 36415; 80048; 85025

== ENCOUNTER → 2024-02-25 10:23 | Outpatient (REF) | payer OTHER, MEDICARE, SELFPAY ==
[2024-02-25 11:12] LABS: Hematocrit 41.5 % (39.0-52.0); Hemoglobin 13.7 g/dL (13.0-18.0); Mean Platelet Volume 10.7 fL (7.4-10.4); Platelet Count 236 10^3/uL (130-400); Red Blood Cell Count 4.28 10^6/uL (4.70-6.10); Red Cell Dist. Width 12.7 % (11.5-14.5); White Blood Cell Count 7.1 10^3/uL (4.8-10.8)
[2024-02-25 11:34] LABS: Blood Urea Nitrogen 27 mg/dl (9-20); Calcium 8.8 mg/dl (8.4-10.2); Carbon Dioxide 26 mmol/L (22-30); Chloride 100 mmol/L (98-107); Glucose 188 mg/dl (70-99); Potassium 4.5 mmol/L (3.5-5.1); Sodium 135 mmol/L (135-145); eGFR > 60.00
== END ==
LOC: OLABP 10:23
PROVIDERS: ATTENDING PHYSICIAN Family Medicine
DX: D50.9 Iron deficiency anemia, unspecified (principal); Z86.73 Personal history of transient ischemic attack (TIA), and cerebral infarction without residual deficits; F03.90 Unspecified dementia, unspecified severity, without behavioral disturbance, psychotic disturbance, mood disturbance, and anxiety; E11.40 Type 2 diabetes mellitus with diabetic neuropathy, unspecified; I10 Essential (primary) hypertension; N18.30 Chronic kidney disease, stage 3 unspecified; I71.00 Dissection of unspecified site of aorta
CPT/HCPCS: 36415; 80048; 85027

== ENCOUNTER → 2024-03-07 10:36 | Outpatient (REF) | payer OTHER, MEDICARE, SELFPAY ==
[2024-03-07 11:06] LABS: % Basophils 0.6 % (0-2); % Eosinophils 4.9 % (0-6); % Immature Granulocytes 0.6 % (0-0.5); % Lymphocytes 21.5 % (20.5-51.1); % Monocytes 10.3 % (1.7-9.3); % Neutrophils 62.1 % (42.2-75.2); Absolute Basophils 0.1 10^3/uL (0-0.2); Absolute Eosinophils 0.5 10^3/uL (0-0.7); Absolute Immature Granulocytes 0.1 10^3/uL (0-0.05); Absolute Lymphocytes 2.1 10^3/uL (1.2-3.4); Absolute Neutrophils 6.1 10^3/uL (1.4-6.5); Hematocrit 41.6 % (39.0-52.0); Hemoglobin 13.3 g/dL (13.0-18.0); Mean Corpuscular Hgb 31.4 pg (27.0-31.0); Mean Corpuscular Volume 98.3 fL (80.0-94.0); Mean Platelet Volume 10.9 fL (7.4-10.4); Nucleated Red Blood Cells % 0 % (-); Platelet Count 215 10^3/uL (130-400); Red Blood Cell Count 4.23 10^6/uL (4.70-6.10); White Blood Cell Count 9.9 10^3/uL (4.8-10.8)
[2024-03-07 11:33] LABS: Blood Urea Nitrogen 25 mg/dl (9-20); Calcium 8.7 mg/dl (8.4-10.2); Carbon Dioxide 27 mmol/L (22-30); Chloride 102 mmol/L (98-107); Glucose 131 mg/dl (70-99); Potassium 4.1 mmol/L (3.5-5.1); Sodium 139 mmol/L (135-145); eGFR > 60.00
[2024-03-07 11:34] LABS: Urine Albumin Trace (Neg - Trace); Urine Bilirubin Negative (Negative); Urine Character Clear (Clear); Urine Color Yellow; Urine Glucose 1+ (Negative); Urine Ketone Negative (Negative); Urine Leukocyte Negative (Negative); Urine Nitrite Negative (Negative); Urine Occult Blood Negative (Negative); Urine Urobilinogen 2+ (Neg - 1+)
== END ==
LOC: OLABP 10:36
PROVIDERS: ATTENDING PHYSICIAN Family Medicine
DX: D50.9 Iron deficiency anemia, unspecified (principal); F03.90 Unspecified dementia, unspecified severity, without behavioral disturbance, psychotic disturbance, mood disturbance, and anxiety; G20.C Parkinsonism, unspecified; E11.40 Type 2 diabetes mellitus with diabetic neuropathy, unspecified; I10 Essential (primary) hypertension; N18.30 Chronic kidney disease, stage 3 unspecified; N39.0 Urinary tract infection, site not specified
CPT/HCPCS: 36415; 80048; 81003; 85025; 87086

== ENCOUNTER 2024-03-15 00:05 | Emergency (ER) | payer MEDICARE, SELFPAY ==
[2024-03-15] VITALS (17 sets, daily range): BP systolic 107–147; BP diastolic 53–90; PULSE 78–98; O2SAT 97; BMI 26.8
--- NOTE | 2024-03-15 02:02 | ED.GENMED ---
History of Present Illness
<Forrest Devi MD - Last Filed: 03/15/24 02:29>
General
Chief Complaint: Change in Mental Status
Source: patient
Exam Limitations: dementia
Time Seen by Provider: 03/15/24 01:51
Nursing documentation reviewed up to this point in time: agreed with
History of Present Illness
History of Present Illness:
Patient with history of dementia and Parkinson's disease, [facility], presents to ED secondary to increased confusion noted by spouse. Upon arrival, patient is pleasantly confused and has no complaints. Denies
headache. Denies difficulty with speech. Denies loss of sensation or weakness. Patient has no insight as to why he is currently in ED.
Past History
<Forrest Devi MD - Last Filed: 03/15/24 02:29>
Past History
ED Past Medical History: HTN, Hypercholesterolemia, NIDDM and Other (Parkinson's )
ED Past Surgical History: Orthopedic (2020 low back surgery)
Social History
Tobacco: Non-smoker
Alcohol: None
Personal:
Living: with family
Review of Systems
<Forrest Devi MD - Last Filed: 03/15/24 02:29>
Review of Systems
Allergies reviewed?: Yes
Unable to obtain full review of systems at this time due to: dementia
All Other Systems: Not applicable
Phy Exam
<Forrest Devi MD - Last Filed: 03/15/24 02:29>
Physical Exam
Physical Exam:
Physical Exam
General: no apparent distress, not acutely ill. afebrile
Head: nc/at. eomi
Neck: supple. normal range of motion.
Heart: s1/s2 regular rate and rhythm, no murmur.
Lungs: no acute respiratory distress. clear bilaterally
Abdomen: normal bowel sounds. not tender.
Neuro: alert and oriented x 1. no focal neurological deficits. normal speech.
Skin: no rash
Psychiatric: well kept. interactive and cooperative
Extremities: no edema. no calf tenderness.
Course
<Forrest Devi MD - Last Filed: 03/15/24 02:29>
Orders/Labs/Results
Orders:
Orders
03/15/24 02:23
Complete Blood Count/With Diff Urgent
Comprehensive Metabolic Panel Urgent
Magnesium Urgent
Urinalysis Reflex To Culture Urgent
Date Specimen was Collected: 03/15/24
Time Specimen was Collected: 02:22
03/15/24 02:53
0.9% Sodium Chloride 500 ml [Nss] 500 ml IV BOLUS
03/15/24 07:36
Case Management Consult ONCE
Case Management Consult: VN/Home Care
Requested By:: PHYSICIAN
Comment: Recently DC from [place] [facility] after 3 weeks. Spent approximately 1 day at home and sent to ER for
change in mental status. Staff that brought patient from the waiting room to the exam room
needed 2 people to lift patient in the bed as he was unable to stand himself. is arriving
in the morning to evaluate the patient to take home. Ensure patient does not need further
resources at home.
Physical Therapy Consult [Pt Eval And Treat] Urgent
Activity Level: Ambulate
03/15/24 08:20
OT Consult [Ot Eval And Treat] Urgent
Abnormal Lab Results
03/15/24
02:23
RBC 4.25 L 10^6/uL
(4.70-6.10)
MCH 31.3 H pg
(27.0-31.0)
MPV 10.6 H fL
(7.4-10.4)
Absolute Monos (auto) 0.8 H 10^3/uL
(0.1-0.6)
Lymphocytes % 20.4 L %
(20.5-51.1)
BUN 23 H mg/dl
(9-20)
Creatinine 1.4 H mg/dL
(0.7-1.3)
Glucose 218 H mg/dl
(70-99)
Alkaline Phosphatase 133 H U/L
(38-126)
Urine Glucose 3+ A
(Negative)
03/15/24 02:23
03/15/24 02:23
Vital Signs
Initial and Last Documented VS:
Initial Vital Signs
Temp Pulse Resp BP Pulse Ox
36.7 C 103 18 143/87 98
03/15/24 00:09 03/15/24 00:09 03/15/24 00:09 03/15/24 00:09 03/15/24 00:09
Last Documented Vital Signs
Temp Pulse Resp BP Pulse Ox
36.7 C 76 17 126/77 98
03/15/24 01:50 03/15/24 12:15 03/15/24 12:15 03/15/24 12:00 03/15/24 12:15
<Melvin Weeks MD - Last Filed: 03/15/24 14:46>
Orders/Labs/Results
Orders:
Orders
03/15/24 02:23
Complete Blood Count/With Diff Urgent
Comprehensive Metabolic Panel Urgent
Magnesium Urgent
Urinalysis Reflex To Culture Urgent
Date Specimen was Collected: 03/15/24
Time Specimen was Collected: 02:22
03/15/24 02:53
0.9% Sodium Chloride 500 ml [Nss] 500 ml IV BOLUS
03/15/24 07:36
Case Management Consult ONCE
Case Management Consult: VN/Home Care
Requested By:: PHYSICIAN
Comment: Recently DC from [place] [facility] after 3 weeks. Spent approximately 1 day at home and sent to ER for
change in mental status. Staff that brought patient from the waiting room to the exam room
needed 2 people to lift patient in the bed as he was unable to stand himself. is arriving
in the morning to evaluate the patient to take home. Ensure patient does not need further
resources at home.
Physical Therapy Consult [Pt Eval And Treat] Urgent
Activity Level: Ambulate
03/15/24 08:20
OT Consult [Ot Eval And Treat] Urgent
Abnormal Lab Results
03/15/24
02:23
RBC 4.25 L 10^6/uL
(4.70-6.10)
MCH 31.3 H pg
(27.0-31.0)
MPV 10.6 H fL
(7.4-10.4)
Absolute Monos (auto) 0.8 H 10^3/uL
(0.1-0.6)
Lymphocytes % 20.4 L %
(20.5-51.1)
BUN 23 H mg/dl
(9-20)
Creatinine 1.4 H mg/dL
(0.7-1.3)
Glucose 218 H mg/dl
(70-99)
Alkaline Phosphatase 133 H U/L
(38-126)
Urine Glucose 3+ A
(Negative)
03/15/24 02:23
03/15/24 02:23
Vital Signs
Initial and Last Documented VS:
Initial Vital Signs
Temp Pulse Resp BP Pulse Ox
36.7 C 103 18 143/87 98
03/15/24 00:09 03/15/24 00:09 03/15/24 00:09 03/15/24 00:09 03/15/24 00:09
Last Documented Vital Signs
Temp Pulse Resp BP Pulse Ox
36.7 C 76 17 126/77 98
03/15/24 01:50 03/15/24 12:15 03/15/24 12:15 03/15/24 12:00 03/15/24 12:15
<Forrest Devi MD - Last Filed: 03/15/24 02:29>
MDM/Problems Addressed
MDM/Problems Addressed:
Left voicemail at home to speak with patient's spouse, to obtain further information. Patient may need case management consultation later today for disposition.
Discussed with spouse - patient came back from rehab earlier in the day. While lying in bed, try to go to sleep, patient kept repeatedly telling spouse that he loves her and exhibited behaviors such as removing things off the wall, which is unusual
for the patient. At the same time, patient told spouse that he wants to go to ED to be checked out, which prompted spouse to call 911. Spouse is unaware of patient's previously diagnosed dementia. Denies previous history of similar symptoms.
Will check blood work and urine, and reassess afterwards.
<Melvin Weeks MD - Last Filed: 03/15/24 14:46>
*Critical Care Note
Total Time (30-74mins, 75-104mins- exclusive of procedures): Not Applicable
<Melvin Weeks MD - Last Filed: 03/15/24 14:46>
Update Note
Update Note:
UPDATE (Melvin Weeks MD)
I have seen and evaluated the patient after signout and reviewed all labs and imaging.
Focused HPI: I resumed care of Denny Wilburn this morning,an 83-year-old male with a reported history of dementia/prior CVA with cognitive impairment, Parkinson's disease, hypertension, hyperlipidemia, diabetes, GERD who presented today to the
emergency room after episode of mild confusion at home. He was notably just admitted to this hospital 02/08/2024 until 02/13/2024�he presented with generalized weakness and foul-smelling urine, treated for urinary tract infection as well as renal
insufficiency; during hospitalization he also developed nausea and vomiting and found to have norovirus. During his hospitalization he was noted to have intermittent sundowning. He was discharged to rehab but yesterday returned home where he lives
with his . Apparently according to record in the evening time he started to exhibit some odd behaviors according to his where he was saying some repetitive unusual things and doing odd/bizarre behaviors like taking things off of the wall.
Apparently for this reason EMS was called to bring her to the hospital. On arrival here patient awake, oriented x 2 and pleasant and cooperative. On review of previous records this seems to be his baseline. He says that he is here because he and
his got into an argument last night. He says that he feels fine and he has no complaints. He had initial assessment with CBC and a CMP which showed minor renal insufficiency with creatinine of 1.4; he had a urinalysis which was negative for
infection. He was given some IV fluids. Case was discussed with his and suspicion at this point is that he may have had an episode of sundowning. We are currently observing clinical status here in the emergency room, waiting for his to
come to the hospital and will reassess disposition thereafter.
Physical exam: Patient is resting comfortably not in any distress. He is oriented to person and place but not time. His vital signs are all noted to be within normal limits including heart rate in 70s, respiratory rate 10-12, oxygen saturation
99%, no fever. Cranial nerves are intact. Motor and sensory intact upper and lower extremities.
Medical Decision Makin-year-old male presents to the emergency room after an episode of confusion/bizarre behavior yesterday evening after returning home from rehab. He does have noted history of dementia/cognitive impairment; he appears to be
at his baseline mental status here. Clinical suspicion at this point is that he had an episode of sundowning which was noted during his most recent hospitalization and certainly could have been triggered off with change in environment. He has been
observed overnight and has not had a change in his clinical status has been resting comfortably with no agitation or confusion. We are currently continuing to observe until arrives here and will reassess disposition at that point.
Patient's is now at bedside she confirms that at present moment patient is completely at his baseline. What she is describing sounds like a classic episode of sundowning. She voiced concern that he came home too early from rehab and that she
is struggling to manage his weakness at home. PT evaluated and agreed that he could benefit from additional rehab. Case management consulted and are working towards placement in rehab.
Disposition to [facility] later today.
ED Attending Note
<Forrest Devi MD - Last Filed: 03/15/24 02:29>
-
Portions of this chart may have been created with voice recognition software.� Occasional wrong word or��sound alike� substitutions may have occurred due to the inherent limitations of voice recognition software.
Discharge Plan
Departure
Patient Disposition: [facility]/SNF
Date of Disposition: 03/15/24
Time of Disposition: 11:11
Discharge Problem:
Sundowning
Instructions: Dementia (DC)
Prescriptions:
No Action
amlodipine 5 mg tablet
5 mg PO DAILY
simvastatin 40 mg tablet
40 mg PO QPM
cyanocobalamin (vitamin B-12) 500 mcg Tablet
1,000 mcg PO DAILY
ferrous sulfate 325 mg (65 mg iron) tablet
325 mg PO NOON Qty: 30 0RF
aspirin 81 mg Tablet,Delayed Release (Dr/Ec)
81 mg PO DAILY
pantoprazole 40 mg tablet,delayed release (DR/EC)
40 mg PO BID@0800,1700
Januvia 100 mg Tablet
100 mg PO DAILY
ascorbic acid (vitamin C) [Vitamin C] 500 mg tablet
250 mg PO NOON
Referrals:
Marvin Davies DO [Family Provider] -
Interventions
Interventions:
*Risk Screen - Suicide Last Done: 03/15/24 00:13
*General Assessment Last Done: 03/15/24 01:50
*Neglect/Abuse Screening Last Done: 03/15/24 01:50
ED- Fall Risk Assessment Last Done: 03/15/24 14:25
*ED COVID-19 Vaccine History Last Done: 03/15/24 01:50
*Nursing Disposition Last Done: 03/15/24 14:25
ED- Cardiac Assessment Last Done: 03/15/24 01:50
ED- Neurological Assessment Last Done: 03/15/24 07:45
ED-Psychological Assessment Last Done: 03/15/24 14:25
ED- Pulmonary Assessment Last Done: 03/15/24 14:25
ED Swallowing Screen Last Done: 03/15/24 01:50
Discharge Date and Time
Discharge Date/Time: 03/15/24 14:27
Print Language: AUSTRIAN
[2024-03-15 02:31] LABS: Urine Albumin Trace (Neg - Trace); Urine Bilirubin Negative (Negative); Urine Character Clear (Clear); Urine Color Yellow; Urine Glucose 3+ (Negative); Urine Ketone Negative (Negative); Urine Leukocyte Negative (Negative); Urine Nitrite Negative (Negative); Urine Occult Blood Negative (Negative); Urine Specific Gravity 1.025 (<1.030); Urine Urobilinogen 1+ (Neg - 1+)
[2024-03-15 02:32] LABS: % Basophils 0.6 % (0-2); % Eosinophils 5.2 % (0-6); % Immature Granulocytes 0.4 % (0-0.5); % Lymphocytes 20.4 % (20.5-51.1); % Monocytes 8.2 % (1.7-9.3); % Neutrophils 65.2 % (42.2-75.2); Absolute Basophils 0.1 10^3/uL (0-0.2); Absolute Eosinophils 0.5 10^3/uL (0-0.7); Absolute Monocytes 0.8 10^3/uL (0.1-0.6); Absolute Neutrophils 6.3 10^3/uL (1.4-6.5); Hematocrit 39.5 % (39.0-52.0); Hemoglobin 13.3 g/dL (13.0-18.0); Mean Corp Hgb Conc. 33.7 g/dL (33.0-37.0); Mean Corpuscular Hgb 31.3 pg (27.0-31.0); Mean Corpuscular Volume 92.9 fL (80.0-94.0); Mean Platelet Volume 10.6 fL (7.4-10.4); Nucleated Red Blood Cells % 0 % (-); Platelet Count 172 10^3/uL (130-400); Red Blood Cell Count 4.25 10^6/uL (4.70-6.10); Red Cell Dist. Width 12.7 % (11.5-14.5); White Blood Cell Count 9.7 10^3/uL (4.8-10.8)
[2024-03-15 02:42] LABS: ALT (SGPT) 28 U/L (0-50); AST (SGOT) 21 U/L (17-59); Alkaline Phosphatase 133 U/L (38-126); Blood Urea Nitrogen 23 mg/dl (9-20); Calcium 8.8 mg/dl (8.4-10.2); Carbon Dioxide 25 mmol/L (22-30); Chloride 103 mmol/L (98-107); Estimated Creatinine Clearance 45 ml/min; Glucose 218 mg/dl (70-99); Magnesium 1.9 mg/dl (1.6-2.3); Potassium 4.1 mmol/L (3.5-5.1); Sodium 140 mmol/L (135-145); Total Bilirubin 0.6 mg/dl (0.2-1.3); Total Protein 6.7 g/dl (6.3-8.2); eGFR 50.18
[2024-03-15] MEDS: NSS 500 IV (03:05)
--- NOTE | 2024-03-15 08:43 | CM ---
Addendum entered by Linh Dick RN 03/15/24 11:36:
[facility]
[phone]
fax
[phone]
CM updated patient and , bedside RN and ED MD.
Addendum entered by Linh Dick RN 03/15/24 11:07:
[facility] has offered a bed. Cecelia in admissions is checking Medicare Days and will confirm acceptance.
Addendum entered by Linh Dick RN 03/15/24 09:51:
Patient has been recommended for placement. CM sent referral via [facility] to [facility], [facility], [facility], [facility], [facility] and [facility].
CM attempted several phone calls to [facility] Nursing supervisor education to discuss readmission with no success. CM left message for Kim at [facility] to discuss admission.
Original Note:
CM was consulted for discharge planning. On review of chart and report from bedside RN, patient was just discharged from [facility] o 03/14. Patient's is currently in room with PT evaluation. CM will discuss discharge planning further pending PT
evaluation.
== END 2024-03-15 14:27 ==
LOC: EMR 00:05
PROVIDERS: EMERGENCY PHYSICIAN Emergency Medicine; FAMILY PHYSICIAN Family Medicine
DX: R53.1 Weakness (principal); F05 Delirium due to known physiological condition; N28.9 Disorder of kidney and ureter, unspecified; F02.80 Dementia in other diseases classified elsewhere, unspecified severity, without behavioral disturbance, psychotic disturbance, mood disturbance, and anxiety; G20.A1 Parkinson's disease without dyskinesia, without mention of fluctuations; E11.9 Type 2 diabetes mellitus without complications; E78.00 Pure hypercholesterolemia, unspecified; I10 Essential (primary) hypertension; Z87.440 Personal history of urinary (tract) infections; Z88.0 Allergy status to penicillin
CPT/HCPCS: 99284; 51701; 80053; 81003; 83735; 85025

== ENCOUNTER 2024-05-27 23:21 | Inpatient (IN) | payer MEDICARE, SELFPAY ==
[2024-05-27] MEDS: ZOFRAN 4 MG IV (17:57)
--- NOTE | 2024-05-27 17:59 | ED.GENMED ---
History of Present Illness
<Lisa Turcios PA-C - Last Filed: 05/28/24 02:35>
General
Chief Complaint: Abdominal Symptoms
Source: patient
Exam Limitations: none
Time Seen by Provider: 05/27/24 17:55
Nursing documentation reviewed up to this point in time: agreed with
History of Present Illness
History of Present Illness:
This is a 83-year-old male with past medical history of insulin-dependent diabetes, hypertension, hyperlipidemia, GERD, mild dementia who presents emergency department today with concerns of nausea and vomiting. The started around 8 AM this morning
and has been persistent since. Patient reports that he did tolerate lunch today and was able to get that down but then the symptoms started again. Patient is present in the ER with his . Patient states that he also has left-sided abdominal
pain. He denies any diarrhea. He denies any prior abdominal surgeries. He denies any chest pain or shortness of breath. He denies any burning with urination or blood in his urine. He denies any flank pain. He denies any fevers or chills. He
has never had this before.
Past History
<Lisa Turcios PA-C - Last Filed: 05/28/24 02:35>
Past History
ED Past Medical History: HTN, Hypercholesterolemia, NIDDM and Other (Parkinson's )
ED Past Surgical History: Orthopedic (2020 low back surgery)
Social History
Tobacco: Non-smoker
Alcohol: None
Personal:
Living: with family
Review of Systems
<Lisa Turcios PA-C - Last Filed: 05/28/24 02:35>
Review of Systems
All Other Systems: ROS reviewed and negative except as documented in HPI and ROS
Phy Exam
<Lisa Turcios PA-C - Last Filed: 05/28/24 02:35>
Physical Exam
Physical Exam:
General: Patient is ill-appearing, active vomiting
Skin: Warm and dry, no rashes or lesions
Head: Normocephalic, atraumatic
Eyes: Sclera non-icteric. EOMs intact.
Cardiac: Patient is tachycardic otherwise regular rhythm, no murmurs
Pulm: Normal respiratory effort, no wheezes, rales, or rhonchi
Abdomen: LLQ abdominal tenderness to palpation with guarding
Neuro: CN II-XII intact, no focal neurologic deficits.
Psychiatric: Appropriate mood and affect
Course
<Lisa Turcios PA-C - Last Filed: 05/28/24 02:35>
Orders/Labs/Results
Orders:
Orders
05/27/24 17:48
Ondansetron Injectable [Zofran] 4 mg .ROUTE .STK-MED ONE
05/27/24 17:56
Ondansetron Injectable [Zofran] 4 mg IV NOW STA
05/27/24 17:57
Complete Blood Count/With Diff Urgent
Comprehensive Metabolic Panel Urgent
Lipase Urgent
05/27/24 18:11
0.9% Sodium Chloride 500 ml [Nss] 500 ml IV BOLUS
05/27/24 18:12
CT Abd/pelvis W Iv Cont Urgent
Comment:
Reason For Exam: LLQ pain, N+V
Urinalysis Reflex To Culture Urgent
05/27/24 18:16
Electrocardiogram (*1) Urgent
Reason for Study: QTc Monitoring
EKG- Treatment ONCE
05/27/24 18:18
Ketorolac [Toradol] 15 mg IV NOW STA
05/27/24 18:30
Influenza A+B Rapid Molecular Urgent
NELLY Source: Nasal Swab
Specimen Description:
Norovirus by PCR Urgent
NELLY Source: Feces/Stool
Specimen Description:
Date Specimen was Collected: 05/27/24
Time Specimen was Collected: 18:28
05/27/24 20:00
0.9% Sodium Chloride 500 ml [Nss] 500 ml IV BOLUS
05/27/24 22:05
MetroNIDAZOLE 500 MG/100 ML [Flagyl 500 mg] 100 ml IV NOW
05/27/24 22:31
Lactic Acid Q4H
Comment: CANCEL 2nd LACTIC ACID IF 1st LACTIC ACID IS LESS THAN 2
Blood Culture Q30M
NELLY Source: Blood/Venous
Specimen Description:
05/27/24 22:36
Blood Culture Q30M
NELLY Source: Blood/Venous
Specimen Description:
05/27/24 22:47
Admit/Transfer Patient As Directed
Co-Sign Provider:
Level of Care: Inpatient admission
Assign to:: Medical/Surgical
Physician / Group: Ramy
Diagnosis: Colitis, Right Hip Fracture
Reason for Hospitalization: IVFs, IV abx, Ortho Consult
Expected length of stay greater than two midnights?: Yes
ELOS- Estimated Length of Stay in days: 3
I certify the patient meets the requirements for IP care: Yes
05/27/24 22:48
PRN Pain Medication Management As Directed
May give lesser potent ordered pain med per pt: Yes
preference::
Protocol:: Medication orders for pain may be administered in a
manner that supports deferring to patient preference
when the pt is:
- Requesting an ordered lesser potent pain medication.
Least to most potent pain medications are defined
as: acetaminophen < NSAID < tramadol < opioids
(morphine, oxycodone, hydromorphone).
- Requesting a lesser dose of the same medication IF
ORDERED.
- Requesting a less intrusive route of administration
if both routes are prescribed by the provider (PO <
IV).
05/27/24 22:50
Code Status As Directed
Resuscitation Status: Full Code
05/27/24 23:06
Quetiapine Fumarate [Seroquel] 12.5 mg PO NOW STA
05/27/24 23:11
STOOL [C difficile Antigen & Toxins] Urgent
NELLY Source: Feces/Stool
Specimen Description:
05/28/24 00:47
0.9% Sodium Chloride 1000 ml [Nss] 1,000 ml IV 100 mls/hr
Acetaminophen [Tylenol] 650 mg PO Q6HPRN PRN
Dextrose 50%-Water [Dextrose 50% Syringe] 12.5 grams IV [id number] PRN
Glucagon [GlucaGen] 1 mg IM PRN PRN
Melatonin 5 mg PO HSPRN PRN
MetroNIDAZOLE 500 MG/100 ML [Flagyl 500 mg] 100 ml IV Q12H
Ondansetron Injectable [Zofran] 4 mg IV Q6HPRN PRN
Quetiapine Fumarate [Seroquel] 12.5 mg PO HS PRN
05/28/24 00:47
Consult Notification Routine
Specialty to Notify: Gastroenterology
GASTROINTESTINAL CONSULT Routine
Consulting Provider: Miguel Elkins
Was physician already notified: No
Reason for consult: Colitis
ORTHOPEDIC CONSULT Routine
Consulting Provider: Yasir Gordon
Was physician already notified: Yes
Activity As Directed
Activity Level: Bedrest
Bedside Glucose Monitoring As Directed
Frequency: AC&HS
Additional Instructions:: Change to q6h if pt on TPN, tube feeding or not eating
Bladder Scan As Directed
Follow Bladder Retention/Intermittent Cath Algorithm?: Yes
PRN if no void in __ hours: 6
Frequency: Per Retention Algorithm
If Bladder Scan Result >: 400
then:: Straight cath
Pneumatic Compression Sleeves As Directed
Type: Knee high
Straight Cath As Directed
Frequency: Per Retention Algorithm
Additional Instructions: straight cath as needed per acute urinary retention algorithm for 24 hrs
Additional Instructions: for bladder scan greater than 400 mL
Vital Signs As Directed
Frequency: Per unit guidelines
DX Deep Vein Thrombosis Video Routine
05/28/24 02:00
CefTRIAXone [Rocephin] 1,000 mg IV Q24H
05/28/24 02:15
Lactic Acid Q4H
Comment: CANCEL 2nd LACTIC ACID IF 1st LACTIC ACID IS LESS THAN 2
05/28/24 Breakfast
NPO
Allow oral meds: Yes
Allow clear liquids: Sips of Clears
NPO with Ice Chips: Yes
Basic Metabolic Panel IN AM
Complete Blood Count/No Diff IN AM
Glycohemoglobin (HgbA1c) IN AM
CR Femur - Right Min 2 Vw Routine
Reason For Exam: hip fracture noted on CT scan
CR Hip - RT w/wo Pel 2-3 Vw* Routine
Reason For Exam: hip fracture noted on CT scan
Include a pelvis x-ray?: No
CR Knee - Left 4 Or More View* Routine
Reason For Exam: hip fracture noted on CT scan
05/28/24 07:30
Insulin Aspart Corrective Low [Novolog Flexpen-Low Resistance] See Protocol SC AC
05/28/24 08:00
Amlodipine [Norvasc] 5 mg PO DAILY
Aspirin Chewable [Low Strength Aspirin] 81 mg PO DAILY
Pantoprazole [Protonix] 40 mg PO BID
Abnormal Lab Results
05/27/24 05/27/24
17:57 22:31
WBC 26.7 H 10^3/uL
(4.8-10.8)
MCV 94.4 H fL
(80.0-94.0)
MCH 31.5 H pg
(27.0-31.0)
Abs Immat Gran (auto) 0.1 H 10^3/uL
(0-0.05)
Absolute Neuts (auto) 23.6 H 10^3/uL
(1.4-6.5)
Absolute Monos (auto) 1.6 H 10^3/uL
(0.1-0.6)
Neutrophils % 88.4 H %
(42.2-75.2)
Lymphocytes % 4.4 L %
(20.5-51.1)
Glucose 222 H mg/dl
(70-99)
Lactic Acid 3.1 H mmol/L
(0.7-2.0)
Alkaline Phosphatase 175 H U/L
(38-126)
05/27/24 17:57
05/27/24 17:57
Vital Signs
Initial and Last Documented VS:
Initial Vital Signs
Temp Pulse Ox
98.0 F 97
05/27/24 17:40 05/27/24 17:40
Last Documented Vital Signs
Temp Pulse Resp BP Pulse Ox
98.6 F 110 16 84/51 92
05/28/24 01:24 05/28/24 01:24 05/28/24 01:24 05/28/24 01:24 05/28/24 01:24
<Joe Lomeli, DO - Last Filed: 05/27/24 22:01>
Orders/Labs/Results
Orders:
Orders
05/27/24 17:48
Ondansetron Injectable [Zofran] 4 mg .ROUTE .STK-MED ONE
05/27/24 17:56
Ondansetron Injectable [Zofran] 4 mg IV NOW STA
05/27/24 17:57
Complete Blood Count/With Diff Urgent
Comprehensive Metabolic Panel Urgent
Lipase Urgent
05/27/24 18:11
0.9% Sodium Chloride 500 ml [Nss] 500 ml IV BOLUS
05/27/24 18:12
CT Abd/pelvis W Iv Cont Urgent
Comment:
Reason For Exam: LLQ pain, N+V
Urinalysis Reflex To Culture Urgent
05/27/24 18:16
Electrocardiogram (*1) Urgent
Reason for Study: QTc Monitoring
EKG- Treatment ONCE
05/27/24 18:18
Ketorolac [Toradol] 15 mg IV NOW STA
05/27/24 18:30
Influenza A+B Rapid Molecular Urgent
NELLY Source: Nasal Swab
Specimen Description:
Norovirus by PCR Urgent
NELLY Source: Feces/Stool
Specimen Description:
Date Specimen was Collected: 05/27/24
Time Specimen was Collected: 18:28
05/27/24 20:00
0.9% Sodium Chloride 500 ml [Nss] 500 ml IV BOLUS
05/27/24 22:05
MetroNIDAZOLE 500 MG/100 ML [Flagyl 500 mg] 100 ml IV NOW
05/27/24 22:31
Lactic Acid Q4H
Comment: CANCEL 2nd LACTIC ACID IF 1st LACTIC ACID IS LESS THAN 2
Blood Culture Q30M
NELLY Source: Blood/Venous
Specimen Description:
05/27/24 22:36
Blood Culture Q30M
NELLY Source: Blood/Venous
Specimen Description:
05/27/24 22:47
Admit/Transfer Patient As Directed
Co-Sign Provider:
Level of Care: Inpatient admission
Assign to:: Medical/Surgical
Physician / Group: Ramy
Diagnosis: Colitis, Right Hip Fracture
Reason for Hospitalization: IVFs, IV abx, Ortho Consult
Expected length of stay greater than two midnights?: Yes
ELOS- Estimated Length of Stay in days: 3
I certify the patient meets the requirements for IP care: Yes
05/27/24 22:48
PRN Pain Medication Management As Directed
May give lesser potent ordered pain med per pt: Yes
preference::
Protocol:: Medication orders for pain may be administered in a
manner that supports deferring to patient preference
when the pt is:
- Requesting an ordered lesser potent pain medication.
Least to most potent pain medications are defined
as: acetaminophen < NSAID < tramadol < opioids
(morphine, oxycodone, hydromorphone).
- Requesting a lesser dose of the same medication IF
ORDERED.
- Requesting a less intrusive route of administration
if both routes are prescribed by the provider (PO <
IV).
05/27/24 22:50
Code Status As Directed
Resuscitation Status: Full Code
05/27/24 23:06
Quetiapine Fumarate [Seroquel] 12.5 mg PO NOW STA
05/27/24 23:11
STOOL [C difficile Antigen & Toxins] Urgent
NELLY Source: Feces/Stool
Specimen Description:
05/28/24 00:47
0.9% Sodium Chloride 1000 ml [Nss] 1,000 ml IV 100 mls/hr
Acetaminophen [Tylenol] 650 mg PO Q6HPRN PRN
Dextrose 50%-Water [Dextrose 50% Syringe] 12.5 grams IV [id number] PRN
Glucagon [GlucaGen] 1 mg IM PRN PRN
Melatonin 5 mg PO HSPRN PRN
MetroNIDAZOLE 500 MG/100 ML [Flagyl 500 mg] 100 ml IV Q12H
Ondansetron Injectable [Zofran] 4 mg IV Q6HPRN PRN
Quetiapine Fumarate [Seroquel] 12.5 mg PO HS PRN
05/28/24 00:47
Consult Notification Routine
Specialty to Notify: Gastroenterology
GASTROINTESTINAL CONSULT Routine
Consulting Provider: Miguel Elkins
Was physician already notified: No
Reason for consult: Colitis
ORTHOPEDIC CONSULT Routine
Consulting Provider: Yasir Gordon
Was physician already notified: Yes
Activity As Directed
Activity Level: Bedrest
Bedside Glucose Monitoring As Directed
Frequency: AC&HS
Additional Instructions:: Change to q6h if pt on TPN, tube feeding or not eating
Bladder Scan As Directed
Follow Bladder Retention/Intermittent Cath Algorithm?: Yes
PRN if no void in __ hours: 6
Frequency: Per Retention Algorithm
If Bladder Scan Result >: 400
then:: Straight cath
Pneumatic Compression Sleeves As Directed
Type: Knee high
Straight Cath As Directed
Frequency: Per Retention Algorithm
Additional Instructions: straight cath as needed per acute urinary retention algorithm for 24 hrs
Additional Instructions: for bladder scan greater than 400 mL
Vital Signs As Directed
Frequency: Per unit guidelines
DX Deep Vein Thrombosis Video Routine
05/28/24 02:00
CefTRIAXone [Rocephin] 1,000 mg IV Q24H
05/28/24 02:15
Lactic Acid Q4H
Comment: CANCEL 2nd LACTIC ACID IF 1st LACTIC ACID IS LESS THAN 2
05/28/24 Breakfast
NPO
Allow oral meds: Yes
Allow clear liquids: Sips of Clears
NPO with Ice Chips: Yes
Basic Metabolic Panel IN AM
Complete Blood Count/No Diff IN AM
Glycohemoglobin (HgbA1c) IN AM
CR Femur - Right Min 2 Vw Routine
Reason For Exam: hip fracture noted on CT scan
CR Hip - RT w/wo Pel 2-3 Vw* Routine
Reason For Exam: hip fracture noted on CT scan
Include a pelvis x-ray?: No
CR Knee - Left 4 Or More View* Routine
Reason For Exam: hip fracture noted on CT scan
05/28/24 07:30
Insulin Aspart Corrective Low [Novolog Flexpen-Low Resistance] See Protocol SC AC
05/28/24 08:00
Amlodipine [Norvasc] 5 mg PO DAILY
Aspirin Chewable [Low Strength Aspirin] 81 mg PO DAILY
Pantoprazole [Protonix] 40 mg PO BID
Abnormal Lab Results
05/27/24 05/27/24
17:57 22:31
WBC 26.7 H 10^3/uL
(4.8-10.8)
MCV 94.4 H fL
(80.0-94.0)
MCH 31.5 H pg
(27.0-31.0)
Abs Immat Gran (auto) 0.1 H 10^3/uL
(0-0.05)
Absolute Neuts (auto) 23.6 H 10^3/uL
(1.4-6.5)
Absolute Monos (auto) 1.6 H 10^3/uL
(0.1-0.6)
Neutrophils % 88.4 H %
(42.2-75.2)
Lymphocytes % 4.4 L %
(20.5-51.1)
Glucose 222 H mg/dl
(70-99)
Lactic Acid 3.1 H mmol/L
(0.7-2.0)
Alkaline Phosphatase 175 H U/L
(38-126)
05/27/24 17:57
05/27/24 17:57
Vital Signs
Initial and Last Documented VS:
Initial Vital Signs
Temp Pulse Ox
98.0 F 97
05/27/24 17:40 05/27/24 17:40
Last Documented Vital Signs
Temp Pulse Resp BP Pulse Ox
98.6 F 110 16 84/51 92
05/28/24 01:24 05/28/24 01:24 05/28/24 01:24 05/28/24 01:24 05/28/24 01:24
<Lisa Turcios PA-C - Last Filed: 05/28/24 02:35>
MDM/Problems Addressed
Differential Diagnosis Includes:
ddx include diverticulitis, norovirus, cholecystitis, SBO, gastroenteritis
MDM/Problems Addressed:
83-year-old male with a past medical history of dementia, Parkinson's, diabetes, hypertension hyperlipidemia presents emergency department today with concerns of nausea vomiting and abdominal pain starting today. Patient denies any diarrhea. Blood
work significant for leukocytosis and CT scan reveals acute left-sided colitis which a large amount of rectal stool bolus possibly suggesting developing stercoral coral colitis. My attending physician was made aware who evaluated pt and also added
on blood cultures. In light of marked leukocytosis and persistent tachycardia, will cover with antibiotics. Manual disimpaction performed in the emergency department. CT scan also demonstrated new femoral neck fracture. On initial evaluation,
patient did not tell me he had this. Did speak to nursing staff who reports that patient arrived via Laura lift and does not walk at baseline. Ortho made aware. Patient referred for admission.
Chronic conditions affecting care:
GERD, HTN, diabetes, demetia
<Lisa Turcios PA-C - Last Filed: 05/28/24 02:35>
*Pulse Oximetry
Patient hypoxic: no
*Critical Care Note
Total Time (30-74mins, 75-104mins- exclusive of procedures): Not Applicable
Data Reviewed
Review of Other/Old Records Reveals: Records (Reviewed ER physician documentation for 03/15/2024 patient seen for increased confusion noted by spouse was to have sound downing and had negative infectious workup)
Source: patient and records
<Lisa Turcios PA-C - Last Filed: 05/28/24 02:35>
Update Note
Update Note:
Updated by nurse that patient had diarrhea episode, will send off norovirus
ED Attending Note
<Lisa Turcios PA-C - Last Filed: 05/28/24 02:35>
-
Portions of this chart may have been created with voice recognition software.� Occasional wrong word or��sound alike� substitutions may have occurred due to the inherent limitations of voice recognition software.
<Joe Lomeli, DO - Last Filed: 05/27/24 22:01>
ED Attending Note
Patient seen and examined by attending physician: Yes
I performed the substantive portion of visit, reviewed & personally made and approve the management plan that is documented in note by myself or SREEDHAR.: Yes
ED Attending Note:
I evaluated patient at bedside. The patient has been tachycardic. Marked leukocytosis noted. Suggestion of stercoral colitis on CT. Attempted disimpaction was performed, moderate amount of soft stool removed.
Discharge Plan
Departure
Patient Disposition: Admit
Date of Disposition: 05/27/24
Time of Disposition: 22:11
Admit to: Med/Surg
Presentation/result/management discussed w/ accepting MD/DO: Hospitalist
Condition: Fair
Discharge Problem:
Acute colitis, Femoral neck fracture, Fecal impaction
Interventions
Interventions:
*Risk Screen - Suicide Last Done: 05/27/24 17:40
*General Assessment Last Done: 05/27/24 17:40
*Neglect/Abuse Screening Last Done: 05/27/24 17:40
*ED- Fall Risk Assessment Last Done: 05/28/24 00:47
*ED COVID-19 Vaccine History Last Done: 05/27/24 17:40
*Nursing Disposition Last Done: 05/28/24 00:47
JZ-Bsxywp-Veflfbrvam Assessment Last Done: 05/28/24 00:05
Discharge Date and Time
Discharge Date/Time: 05/28/24 00:48
[2024-05-27 18:00] VITALS: BP 124/82
[2024-05-27 18:15] LABS: Hematocrit 45.8 % (39.0-52.0); Hemoglobin 15.3 g/dL (13.0-18.0); Mean Corp Hgb Conc. 33.4 g/dL (33.0-37.0); Mean Corpuscular Hgb 31.5 pg (27.0-31.0); Mean Corpuscular Volume 94.4 fL (80.0-94.0); Mean Platelet Volume 10.1 fL (7.4-10.4); Platelet Count 236 10^3/uL (130-400); Red Blood Cell Count 4.85 10^6/uL (4.70-6.10); Red Cell Dist. Width 13.6 % (11.5-14.5); White Blood Cell Count 26.7 10^3/uL (4.8-10.8)
[2024-05-27 18:22] LABS: % Basophils 0.4 % (0-2); % Eosinophils 0.3 % (0-6); % Immature Granulocytes 0.5 % (0-0.5); % Lymphocytes 4.4 % (20.5-51.1); % Neutrophils 88.4 % (42.2-75.2); Absolute Basophils 0.1 10^3/uL (0-0.2); Absolute Eosinophils 0.1 10^3/uL (0-0.7); Absolute Immature Granulocytes 0.1 10^3/uL (0-0.05); Absolute Lymphocytes 1.2 10^3/uL (1.2-3.4); Absolute Monocytes 1.6 10^3/uL (0.1-0.6); Absolute Neutrophils 23.6 10^3/uL (1.4-6.5); Nucleated Red Blood Cells % 0 % (-)
[2024-05-27 18:26] LABS: ALT (SGPT) 24 U/L (0-50); AST (SGOT) 22 U/L (17-59); Albumin 4.2 g/dl (3.5-5.0); Alkaline Phosphatase 175 U/L (38-126); Blood Urea Nitrogen 20 mg/dl (9-20); Carbon Dioxide 27 mmol/L (22-30); Chloride 102 mmol/L (98-107); Glucose 222 mg/dl (70-99); Lipase 47 U/L (23-300); Potassium 4.2 mmol/L (3.5-5.1); Sodium 143 mmol/L (135-145); Total Bilirubin 1.3 mg/dl (0.2-1.3); Total Protein 7.9 g/dl (6.3-8.2); eGFR > 60.00
[2024-05-27] MEDS: NSS 500 IV ×2 (18:31→21:07)
[2024-05-27 19:00] VITALS: BP 121/78
[2024-05-27 22:11] VITALS: BP 119/72
--- NOTE | 2024-05-27 22:29 | HPS.HSE ---
Addendum entered and electronically signed by Jeramy Mccann DO 05/27/24 23:49:
Patient seen and examined independently. Agree with findings and plan as set forth by Nupur Villa PA-C.
Patient is an 83y M with PMH significant for hypertension, DM-II and dementia who presents to ED from local [place] for evaluation of N/V/D that was noted today. Patient arrived on a Laura sling. CT was done in the ED which revealed left-sided
colitis, fecal impaction / stercoral colitis as well as R subcapital hip fracture. Patient was disimpacted in the ED and has had profuse, liquid stool since that time. He has become progressively more restless / agitated during his time in the ED.
He does not complain of any pain - but history is difficult given baseline dementia.
No report of any fall, injury, trauma per [place]. Unclear when injury / hip fracture may have taken place.
Ass:
Colitis
Sepsis secondary to the above
Fecal Impaction / Stercoral Colitis
Right Femur Fracture
Senile Dementia with Behavioral Disturbance
ASCVD / Prior CVAs
DM-II
Benign Hypertension
GERD / Esophagitis
Plan:
Admit for further evaluation and treatment.
Continue IV abx with ceftriaxone and Flagyl.
Check stool studies including CDiff, cultures, etc.
Supportive care, IVFs, etc.
Ortho consulted for eventual operative repair of the R hip.
Continue usual home medications
Add quetiapine as needed for agitation / mood.
Adjust medications for pain / agitation / etc as needed for patient comfort.
Original Note:
Family Physician
-
Family Physician: Marvin Davies
Chief Complaint
-
Vomiting and Abdominal Pain
History of Present Illness
Patient is a 83 y/o male past medical history of hypertension, hyperlipidemia, diabetes, Parkinson disease and dementia with sundowning who presents with vomiting and abdominal pain. Patient is unable to provide any history at this point in time.
Patient developed vomiting this morning. He apparently ate some lunch but then started vomiting again. Patient was initially complaining about left sided abdominal pain. ED nurse notes patient has been passing stool almost constantly since
arrival. CT scan is ED revealed acute left sided colitis, and moderate rectal stool with possible developing stercoral colitis. Patient was disimpacted in ED by ED provider. CT scan also revealed right hip fracture new compared to Feb 2024,
likely acute/subacute. There are no reports of falls.
Medical History
Past Medical History
Past Medical History: Reports Other
Additional Past Medical History:
Essential Hypertension
Hyperlipidemia
Diabetes Mellitus, Type II
Diabetic Neuropathy
Multiple Strokes
Dementia
GERD/Erosive Esophagitis
Past Surgical History: Reports Other
Additional Past Surgical History:
Back Surgery
Social History
Tobacco: Non-smoker
Alcohol: None
Personal:
Living: With Family
Family History
Family History: Not pertinent
Allergies / Home Medications
Allergies reflects when Allergies were last updated in [facility].
Home Medications with original date entered in [facility]
Allergy/Medication List:
Allergies
Allergy/AdvReac Type Severity Reaction Status Date / Time
Penicillins Allergy Unknown Verified 02/08/24 00:50
Home Medications
amlodipine 5 mg tablet 5 mg PO DAILY Blood Pressure 09/06/22
simvastatin 40 mg tablet 40 mg PO HS High Cholesterol 09/06/22
pantoprazole 40 mg tablet,delayed release 40 mg PO BID Gastrointestinal Issue 10/06/23
ascorbic acid (vitamin C) 500 mg tablet (Vitamin C) 250 mg PO DAILY 02/08/24
acetaminophen 325 mg tablet (Tylenol) 650 mg PO Q6HPRN PRN mild pain/temp>100 05/27/24
aspirin 81 mg chewable tablet 81 mg PO DAILY 05/27/24
bisacodyl 10 mg rectal suppository (Dulcolax (bisacodyl)) 10 mg GA DAILYPRN PRN if mom ineffective aftr 24 hrs 05/27/24
cyanocobalamin (vitamin B-12) 1,000 mcg tablet 1,000 mcg PO DAILY 05/27/24
ferrous sulfate 325 mg (65 mg iron) tablet 325 mg PO DAILY 05/27/24
insulin aspart U-100 100 unit/mL subcutaneous solution 1 sliding scale dose SC AC 05/27/24
magnesium hydroxide 400 mg/5 mL oral suspension (Milk of Magnesia) 30 ml PO [id number] PRN no bm in 3 days 05/27/24
melatonin 5 mg tablet 5 mg PO HSPRN PRN insomnia 05/27/24
saxagliptin 5 mg tablet 5 mg PO DAILY 05/27/24
sodium phosphates 19 gram-7 gram/118 mL enema (Fleet Enema) 118 ml GA DAILYPRN PRN if dulcolax ineffective aftr 24 hrs 05/27/24
Review of Systems
-
Unable to obtain full review of systems at this time due to: Dementia
Physical Exam
Vital Signs
Vital Signs
Temp Pulse Resp BP Pulse Ox
98.0 F 111 15 121/78 88
05/27/24 17:40 05/27/24 20:45 05/27/24 20:45 05/27/24 19:00 05/27/24 18:16
Physical Exam
General: Well Developed, Well Nourished and Other (Restless)
HEENT: Anicteric and Moist mucous membranes
Respiratory: Clear and Non Labored Respirations
Cardiac: S1/S2, Regular Rhythm and Tachycardia
GI: Soft and Non Tender
Musculoskeletal: No Clubbing, No Cyanosis and Other (Patient holding right lower extremity in 'frog-leg' flexed position)
Skin: Warm and Dry
Neuro: Awake, Alert and Oriented (Self only)
Psych: Confused and Other (Restless)
Laboratory Results
-
05/27/24 17:57
05/27/24 17:57
Laboratory Results
Total Bilirubin 1.3 mg/dl (0.2-1.3) 05/27/24 17:57
AST 22 U/L (17-59) 05/27/24 17:57
ALT 24 U/L (0-50) 05/27/24 17:57
Alkaline Phosphatase 175 U/L (38-126) H 05/27/24 17:57
Lipase 47 U/L (23-300) 05/27/24 17:57
Abd/Pelvis CT SCan:
1. Acute left-sided colitis, likely of infectious/inflammatory etiology.
2. Moderate rectal stool bolus with possible developing stercoral colitis. Constipation.
3. Probable reactive cystitis.
4. Comminuted displaced subcapital right femoral neck fracture, new from prior and likely acute/subacute.
Data Reviewed
-
CT Scan: Report Reviewed by me
Lab Data: Labs Reviewed by me
Impression/Plan
-
Sepsis secondary to Left-Sided Colitis
-Consult GI
-Check stool culture, norovirus and C Diff
-Continue ceftriaxone and metronidazole
-Continue NPO/IVFs
-Trend Lactic Acid
Right Hip Fracture, acute vs subacute (new compared to Feb 2024)
-Consult Ortho
-Check Hip, Femur and Knee X-rays per ortho recommendation
-Continue bedrest
Dementia with Sundowning
-Give dose of Seroquel 12.5mg PO NOW and continue PRN
Multiple Prior Strokes
-Brain MRI 2022: Small chronic transcortical infarct in the medial left frontal lobe. Small chronic infarct in the right cerebellar hemisphere
-Continue aspirin
Diabetes Mellitus, Type II
-Hold saxagliptin
-Monitor sugars and continue coverage insulin
Essential Hypertension
-Continue amlodipine
Hyperlipidemia
-Continue simvastatin
Erosive Esophagitis
-Continue Protonix
Code Status: Per Current [place] paperwork patient is Full Code. However on multiple prior admissions patient was DNR. Patient is unable to participate in conversation with his dementia, and I am unable to reach his at this time. Attempt to
clarify code status with family in AM.
[2024-05-27] MEDS: FLAGYL 500 MG 100 IV (22:37)
[2024-05-27 23:00] VITALS: BP 100/65
[2024-05-27 23:00] LABS: Lactic Acid 3.1 mmol/L (0.7-2.0)
[2024-05-28] VITALS (7 sets, daily range): BP systolic 84–135; BP diastolic 51–86; BMI 23.2
[2024-05-28] MEDS: SEROQUEL 12.5 MG PO (00:02)
[2024-05-28] MEDS: CIPRO 400 MG 200 IV (00:14)
[2024-05-28] MEDS: DILAUDID 0.25 MG IV ×2 (00:35→09:47)
--- NOTE | 2024-05-28 01:00 | PTCARENOTE ---
05/28: Pt arrived via stretcher on 2n. Pt slid to bed. Pt vs 84/51, pulse 110, resp 16, afebrile, pulse ox 92 on RA. 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 Lethargic, confused but redirectable. Hx of dementia. Bedalarm applied, fall risk measures in place.
Callbell within reach.
[2024-05-28] MEDS: NSS 500 IV (02:08)
[2024-05-28] MEDS: FLAGYL 500 MG 100 IV ×2 (02:08→12:23)
[2024-05-28 03:35] LABS: Hematocrit 39.3 % (39.0-52.0); Hemoglobin 13.2 g/dL (13.0-18.0); Mean Corp Hgb Conc. 33.6 g/dL (33.0-37.0); Mean Corpuscular Hgb 31.1 pg (27.0-31.0); Mean Corpuscular Volume 92.5 fL (80.0-94.0); Mean Platelet Volume 10.3 fL (7.4-10.4); Platelet Count 197 10^3/uL (130-400); Red Blood Cell Count 4.25 10^6/uL (4.70-6.10); Red Cell Dist. Width 13.7 % (11.5-14.5); White Blood Cell Count 19.2 10^3/uL (4.8-10.8)
[2024-05-28 03:57] LABS: Lactic Acid 2.2 mmol/L (0.7-2.0)
[2024-05-28] MEDS: STERILE WATER FOR INJECTION 10 ML IV (03:57)
[2024-05-28] MEDS: ROCEPHIN 1000 MG IV (03:57)
[2024-05-28 03:59] LABS: Blood Urea Nitrogen 25 mg/dl (9-20); Carbon Dioxide 27 mmol/L (22-30); Chloride 103 mmol/L (98-107); Glucose 319 mg/dl (70-99); Potassium 4.9 mmol/L (3.5-5.1); Sodium 140 mmol/L (135-145); eGFR 54.85
[2024-05-28] MEDS: NSS 1000 IV ×2 (05:05→21:36)
--- NOTE | 2024-05-28 07:03 | CON.GI ---
Addendum entered and electronically signed by Miguel Elkins MD 05/28/24 16:37:
The patient was seen and examined by me independently in collaboration with the nurse practitioner.
Past medical history/social history/medications/allergies/family history reviewed.
Lab data and imaging data reviewed.
83-year-old male past medical history of stroke, dementia presenting with vomiting and left-sided abdominal pain. Found to have leukocytosis and lactic acid elevation and CT with left-sided colitis with moderate rectal stool burden with possible
developing stercoral colitis. Incidentally found to have a femoral neck fracture as well. Patient unable to give much of a history with his dementia. Oriented x 1. Reviewing CT scan he does have a significant amount of stool on his CT. Did
undergo and disimpaction in the ER and currently written for enema and MiraLAX which I will increase to twice a day and senna at bedtime. Reviewed Ortho plan no clear plan for surgery at this time so I will advance him to clear liquid diet. Given
his age and mental status, likely would hold off on outpatient procedures but this will need to be an in-depth discussion with his .
Addendum entered and electronically signed by MERLE Lester 05/28/24 10:54:
reviewed with - no hx prior GI issues. Did not recall colonoscopy in past. Plan for enema and clearing of stool then Outpatient EGD and colon when able unless any other issues during admission. Await ortho eval for hip fracture.
Original Note:
Consultation
-
Date/Time Consultation Requested: 05/28/24 0040
Date/Time Consultation Performed: 05/28/24 1000
Requesting Provider: Nupur Villa PA-C
Performing Provider: MERLE Alexander, Mary Elkins MD
Reason for Consultation: colitis/diarrhea/increased stool burden
Medical History
Chief Complaint / HPI
Chief Complaint: abdominal pain
History of Present Illness:
Pt is an 83yo with hx prior CVA, GERD, esophagitis, intestinal metaplasia- knox's HTN, hyperlipidemia, dementia, NIDDM with neuropathy with onset of vomiting with left sided abdominal pain. On admission noted with WBC 26,700, hbg 15.3, glucose
222 lactate 3.1, CT a/p with left sided colitis, moderate rectal stool burden with possible developing stercoral colitis, constipation, cystitis, and displaced right femoral neck fx acute/subacute. In review with patient some limited hx with
dementia but denies prior GI problems. No prior records of colonoscopy but had EGD x 2 in 2022 with esophagitis and noted knox's without 1 year follow up. No records of prior colonoscopy in past.
Per review with nursing staff still with some constant stool with some form and some liquid brown stools. Pt did have some disimpaction in ER but not enemas. No was noted with vomiting and abdominal pain but now denies but limited with
dementia and also just had sedation.
Past Medical History
Past Medical History: CVA, GERD (hx esophagitis ), HTN, Hypercholesterolemia, NIDDM, Psychiatric (dementia ) and Other (neuropathy)
Past Surgical History: Orthopedic (back surgery )
Social History
Tobacco: Non-Smoker (per chart)
Alcohol: None (per chart)
Personal:
Living: Intermediate
Family History
Family History: Unable to Obtain
Allergies / Home Medications
Allergy/AdvReac Type Severity Reaction Status Date / Time
Penicillins Allergy Unknown Verified 02/08/24 00:50
�Medication �Instructions �Recorded
amlodipine 5 mg tablet 5 mg PO DAILY Blood Pressure 09/06/22
simvastatin 40 mg tablet 40 mg PO HS High Cholesterol 09/06/22
pantoprazole 40 mg tablet,delayed 40 mg PO BID Gastrointestinal Issue 10/06/23
release
ascorbic acid (vitamin C) 500 mg 250 mg PO DAILY 02/08/24
tablet (Vitamin C)
acetaminophen 325 mg tablet 650 mg PO Q6HPRN PRN mild 05/27/24
(Tylenol) pain/temp>100
aspirin 81 mg chewable tablet 81 mg PO DAILY 05/27/24
bisacodyl 10 mg rectal suppository 10 mg [place] DAILYPRN PRN if mom 05/27/24
(Dulcolax (bisacodyl)) ineffective aftr 24 hrs
cyanocobalamin (vitamin B-12) 1,000 mcg PO DAILY 05/27/24
1,000 mcg tablet
ferrous sulfate 325 mg (65 mg 325 mg PO DAILY 05/27/24
iron) tablet
insulin aspart U-100 100 unit/mL 1 sliding scale dose SC AC 05/27/24
subcutaneous solution
magnesium hydroxide 400 mg/5 mL 30 ml PO [id number] PRN no bm in 3 05/27/24
oral suspension (Milk of Magnesia) days
melatonin 5 mg tablet 5 mg PO HSPRN PRN insomnia 05/27/24
saxagliptin 5 mg tablet 5 mg PO DAILY 05/27/24
sodium phosphates 19 gram-7 118 ml DC DAILYPRN PRN if dulcolax 05/27/24
gram/118 mL enema (Fleet Enema) ineffective aftr 24 hrs
Review of Systems
-
Unable to obtain full review of systems at this time due to: Dementia and Other (unable to reach )
History Source: Patient and Other (nursing staff )
Constitutional: Reports No Symptoms
EENT: Reports No Symptoms
Respiratory: Reports No Symptoms
Abdomen/GI: Reports Abdominal Pain, Nausea, Vomiting, Diarrhea and Constipated
: Reports No Symptoms
Musculoskeletal: Reports Other (concern for hip fracture )
Skin: Reports No Symptoms
Neurological: Reports Weakness
Endocrine: Reports No Symptoms
Hematologic/Lymphatic: Reports No Symptoms
Vital Signs
Temp Pulse Resp BP Pulse Ox
98.6 F 110 16 84/51 92
05/28/24 01:24 05/28/24 01:24 05/28/24 01:24 05/28/24 01:24 05/28/24 01:24
Physical Exam
Exam
General: Other (elderly male with sleepy s/p sedation then confusion in exam)
HEENT: Normocephalic and Anicteric
Respiratory: Clear
Cardiac: Regular Rhythm
GI: Soft
Rectal: Brown and Other (some soft and liquid stool with still large stool burden and impaction on exam -- assist with RN for exam )
Musculoskeletal: No Clubbing and No Cyanosis
Skin: Warm and Dry
Neuro: Other (awakens to voice then drifts off )
Psych: Agitated (per staff with difficulty with X ray )
Results
WBC 19.2 10^3/uL (4.8-10.8) H 05/28/24 03:19
Hgb 13.2 g/dL (13.0-18.0) 05/28/24 03:19
Hct 39.3 % (39.0-52.0) 05/28/24 03:19
MCV 92.5 fL (80.0-94.0) 05/28/24 03:19
Plt Count 197 10^3/uL (130-400) 05/28/24 03:19
Absolute Neuts (auto) 23.6 10^3/uL (1.4-6.5) H 05/27/24 17:57
Sodium 140 mmol/L (135-145) 05/28/24 03:19
Potassium 4.9 mmol/L (3.5-5.1) 05/28/24 03:19
Chloride 103 mmol/L (98-107) 05/28/24 03:19
Carbon Dioxide 27 mmol/L (22-30) 05/28/24 03:19
BUN 25 mg/dl (9-20) H 05/28/24 03:19
Creatinine 1.3 mg/dL (0.7-1.3) 05/28/24 03:19
Calcium 9.0 mg/dl (8.4-10.2) 05/28/24 03:19
Total Bilirubin 1.3 mg/dl (0.2-1.3) 05/27/24 17:57
AST 22 U/L (17-59) 05/27/24 17:57
ALT 24 U/L (0-50) 05/27/24 17:57
Alkaline Phosphatase 175 U/L (38-126) H 05/27/24 17:57
Lipase 47 U/L (23-300) 05/27/24 17:57
Diagnostic Image Results:
05/27/24 CT Abd/pelvis W Iv Cont
1. Acute left-sided colitis, likely of infectious/inflammatory etiology.
2. Moderate rectal stool bolus with possible developing stercoral colitis. Constipation.
3. Probable reactive cystitis.
4. Comminuted displaced subcapital right femoral neck fracture, new from prior and likely acute/subacute.
Prior GI Procedures:
EGD: 11/2022 ahmad - 4 cm hiatal hernia.
- Esophageal mucosal changes suspicious for
long-segment Knox's esophagus. Biopsied.
- Normal stomach. Biopsied.
- Normal duodenum.
bx mixed inflammation and intestinal metaplasia
1 year follow up
EGD 09/2022 ahmad - 2-3 cm hiatal hernia.
- LA Grade D esophagitis with no bleeding.
- Normal stomach. Biopsied.
- Normal duodenum.
bx neg with neg H pylori
Colonoscopy: unknown no records in past
Assessment / Plan
-
Pt is an 83yo with hx prior CVA, GERD, esophagitis, intestinal metaplasia- knox's HTN, hyperlipidemia, dementia, NIDDM with neuropathy with onset of vomiting with left sided abdominal pain. On admission noted with WBC 26,700, hbg 15.3, glucose
222 lactate 3.1, CT a/p with left sided colitis, moderate rectal stool burden with possible developing stercoral colitis, constipation, cystitis, and displaced right femoral neck fx acute/subacute. In review with patient some limited hx with
dementia but denies prior GI problems. No prior records of colonoscopy but had EGD x 2 in 2022 with esophagitis and noted knox's without 1 year follow up. No records of prior colonoscopy in past.
-fecal impaction/stercoral colitis
-vomiting-- likely secondary to impaction
-left sided colitis
-leukocytosis
-displaced right fem neck fracture
-hx knox's without prior follow up in 2023
other med problems:
-HTN
-dementia
-hyperlipidemia
-NIDDM-neuropathy
PLAN:etiology of symptoms with concern for fecal impaction with diarrhea likely overflow diarrhea
-cdiff neg, stool cx pending
rectal exam still with increased stool burden
will given enema now
add miralax daily and senna at HS
monitor for recurrent vomiting
blood cx pending
cont abx
ortho eval for hip
NPO -- ok for GI for clears pending ortho plan
trend WBC
GI follow up as due for EGD and will need to consider colonoscopy
left message for
-
-
Thank you for consultation and allowing me to participate in the patient's care. Please call the [facility] physician during the after hours with any questions or concerns.
[2024-05-28 08:32] LABS: Glucose - Point of Care 233 mg/dl (70-99)
[2024-05-28] MEDS: PROTONIX PO (09:10)
[2024-05-28] MEDS: LOW STRENGTH ASPIRIN PO (09:10)
--- NOTE | 2024-05-28 09:11 | CON.ORTHO ---
Consultation
-
Date/Time Consultation Requested: 05/27/2024; time unknown
Date/Time Consultation Performed: 05/28/2024; 0730
Requesting Provider: unknown
Performing Provider: Josefina Abbott PA-C for Dr. Yasir Gordon
Reason for Consultation: Right femoral neck fracture
Consultation - Orthopedics
History
Mr. Wilburn is a 83 y/o male with past medical history of hypertension, hyperlipidemia, diabetes, Parkinson disease and dementia with sundowning. He is currently living at [facility] and was brought in due to nausea and vomiting. When CT abdomen
pelvis was performed, he was incidentally found to have a subcapital femur fracture. There were no reported falls at [facility]. Patient is a poor historian secondary to his dementia. He was sleeping this morning, and when aroused was not
oriented. I do not have any information regarding prior falls or whether or not he is ambulatory at baseline.
Allergies / Home Medications
Allergy/AdvReac Type Severity Reaction Status Date / Time
Penicillins Allergy Unknown Verified 02/08/24 00:50
�Medication �Instructions �Recorded
amlodipine 5 mg tablet 5 mg PO DAILY Blood Pressure 09/06/22
simvastatin 40 mg tablet 40 mg PO HS High Cholesterol 09/06/22
pantoprazole 40 mg tablet,delayed 40 mg PO BID Gastrointestinal Issue 10/06/23
release
ascorbic acid (vitamin C) 500 mg 250 mg PO DAILY Supplement 02/08/24
tablet (Vitamin C)
acetaminophen 325 mg tablet 650 mg PO Q6HPRN PRN mild 05/27/24
(Tylenol) pain/temp>100
aspirin 81 mg chewable tablet 81 mg PO DAILY Blood Clot 05/27/24
Prevention/Tx
bisacodyl 10 mg rectal suppository 10 mg [place] DAILYPRN PRN if mom 05/27/24
(Dulcolax (bisacodyl)) ineffective aftr 24 hrs
cyanocobalamin (vitamin B-12) 1,000 mcg PO DAILY Supplement 05/27/24
1,000 mcg tablet
ferrous sulfate 325 mg (65 mg 325 mg PO DAILY Supplement 05/27/24
iron) tablet
insulin aspart U-100 100 unit/mL 1 sliding scale dose SC AC Diabetes 05/27/24
subcutaneous solution
magnesium hydroxide 400 mg/5 mL 30 ml PO [id number] PRN no bm in 3 05/27/24
oral suspension (Milk of Magnesia) days
melatonin 5 mg tablet 5 mg PO HSPRN PRN insomnia 05/27/24
saxagliptin 5 mg tablet 5 mg PO DAILY Diabetes 05/27/24
sodium phosphates 19 gram-7 118 ml [place] DAILYPRN PRN if dulcolax 05/27/24
gram/118 mL enema (Fleet Enema) ineffective aftr 24 hrs
Vital Signs / Lab Results
Temp Pulse Resp BP Pulse Ox
97.6 F 86 14 124/75 97
05/28/24 07:45 05/28/24 07:45 05/28/24 07:45 05/28/24 07:45 05/28/24 07:45
05/28/24 03:19
05/28/24 03:[address] Abdomen Pelvis IMPRESSION:
1. Acute left-sided colitis, likely of infectious/inflammatory etiology.
2. Moderate rectal stool bolus with possible developing stercoral colitis. Constipation.
3. Probable reactive cystitis.
4. Comminuted displaced subcapital right femoral neck fracture, new from prior and likely acute/subacute.
Directed exam of the right hip reveals no obvious erythema, ecchymosis or edema. Mild edema about both feet. Patient holding leg in flexed position. Patient groans with discomfort with logroll. Calf soft and nontender. Faint pulses in bilateral
feet, but good warmth to touch.
Assessment / Plan
Right femoral neck fracture
--Denny was incidentally found to have a right femoral neck fracture on his CT scan. At this point, we don't know if there have been any falls or incidents to result in this fracture. I attempted to call his , Geovanna, but she did not answer.
Left VM to return call. I would like to discuss Denny's situation with her to assess their goals of care. Surgical intervention with a right hip hemiarthroplasty is a possibility. This would need to be performed once deemed medically optimized
given his current fecal impaction, colitis and secondary sepsis.
--We are awaiting x-rays of patients hip and knee.
--NWB to RLE.
--Pain control prn. Ice for edema and pain control.
--Orthopedics will continue to follow along.
[2024-05-28 10:02] LABS: Lactic Acid 2.7 mmol/L (0.7-2.0)
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
[2024-05-28] MEDS: NOVOLOG FLEXPEN-LOW RESISTANCE 2 UNITS SC ×2 (11:06→13:10)
--- NOTE | 2024-05-28 11:18 | CM ---
Reviewed the chart notes and spoke with [facility] Admissions Liaison. Patient has a [address]. Patient is in a MA pending status. The patient resides at [facility] since 03/2024. The patient is able to feed self, but
requires mod to max assist with ADLs. Patient is wheelchair bound and requires a huong lift for transfers. CM continues to be available to patient/family and is monitoring medical plan for needs at discharge.
Plan: Discharge back to [facility] when medically stable. No precert required.
--- NOTE | 2024-05-28 12:17 | W.PN.HOSP.TC ---
Today's Communication/Plan
-
monitor vitals
see plan
cw abx
laxatives
ortho to decide on non OP or OP management for his fracture
Assessment / Plan
Assessment / Plan
General: Well Developed, Well Nourished and Other (Restless)
HEENT: Anicteric and Moist mucous membranes
Respiratory: Clear and Non Labored Respirations
Cardiac: S1/S2, Regular Rhythm and Tachycardia
GI: Soft and Non Tender
Neuro: Awake, Alert and Oriented (Self only)
Psych: Confused and Other (Restless)
Sepsis secondary to Left-Sided Colitis
Likely secondary stercoral colitis
Agree with laxatives, enema
GI following
C. difficile negative, stool studies, norovirus pending
Continue with ceftriaxone and Flagyl for now
N.p.o.
Lactic acidosis
Monitor
Fluids
Right Hip Fracture, acute vs subacute (new compared to Feb 2024)
Orthopedics following, awaiting family decision regarding surgical versus nonsurgical management
-Check Hip, Femur and Knee X-rays per ortho recommendation, patient has been agitated and has been refusing
If nonsurgical management then will need recommendation regarding physical therapy evaluation per orthopedics
Dementia with Sundowning; dementia with behavioral disturbances
History of Parkinson's
Start Risperdal twice daily
Multiple Prior Strokes
-Brain MRI 2022: Small chronic transcortical infarct in the medial left frontal lobe. Small chronic infarct in the right cerebellar hemisphere
-Continue aspirin
Diabetes Mellitus, Type II
-Hold saxagliptin
-Monitor sugars and continue coverage insulin
A1c 11; was 10.2 on 2023; doubt patient will be compliant with insulin
Essential Hypertension
Blood pressure low normal here, hold amlodipine
Hyperlipidemia
-Continue simvastatin
Erosive Esophagitis
-Continue Protonix
Code Status: Per Current [place] paperwork patient is Full Code. Discussed with patient's spouse and she wants full code.
I spent a total of 53 minutes with the patient or on the floor. More than 50% of this time involved counseling and coordination of care.
Anticipated Discharge: > 48 hours
Subjective/Interval History
-
Date of Service: May 28, 2024
has abdominal pain
Objective Data
-
Labs:
Laboratory Results
05/28/24
03:19
WBC 19.2 H
Hgb 13.2
Hct 39.3
Plt Count 197
Sodium 140
Potassium 4.9
Chloride 103
Carbon Dioxide 27
BUN 25 H
Creatinine 1.3
Glucose 319 H
Calcium 9.0
Vital Signs:
Vital Signs
Temp Pulse Resp BP Pulse Ox
97.6 F 86 14 124/75 97
05/28/24 07:45 05/28/24 07:45 05/28/24 07:45 05/28/24 07:45 05/28/24 11:14
[2024-05-28] MEDS: NSS IV (12:21)
[2024-05-28] MEDS: RISPERDAL PO (13:07)
[2024-05-28 13:13] LABS: Glucose - Point of Care 202 mg/dl (70-99)
[2024-05-28 15:57] LABS: Lactic Acid 1.5 mmol/L (0.7-2.0)
[2024-05-28] MEDS: NOVOLOG FLEXPEN-LOW RESISTANCE 1 UNITS SC (17:13)
[2024-05-28 17:14] LABS: Glucose - Point of Care 151 mg/dl (70-99)
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
[2024-05-28] MEDS: LIPITOR 20 MG PO (21:36)
[2024-05-28] MEDS: SENOKOT 17.2 MG PO (21:36)
[2024-05-28] MEDS: MIRALAX 17 GRAMS PO (21:36)
[2024-05-28] MEDS: RISPERDAL 0.5 MG PO (21:36)
[2024-05-28] MEDS: PROTONIX 40 MG PO (21:37)
[2024-05-28 21:51] LABS: Glucose - Point of Care 153 mg/dl (70-99)
[2024-05-29] MEDS: FLAGYL 500 MG 100 IV ×2 (01:19→15:03)
[2024-05-29] MEDS: STERILE WATER FOR INJECTION 10 ML IV (03:01)
[2024-05-29] MEDS: ROCEPHIN 1000 MG IV (03:01)
[2024-05-29] MEDS: MELATONIN 5 MG PO (03:29)
[2024-05-29 06:00] VITALS: BMI 23.3
[2024-05-29 06:16] LABS: % Basophils 0.4 % (0-2); % Eosinophils 1.6 % (0-6); % Immature Granulocytes 0.4 % (0-0.5); % Lymphocytes 9.9 % (20.5-51.1); % Monocytes 7.8 % (1.7-9.3); % Neutrophils 79.9 % (42.2-75.2); Absolute Basophils 0.1 10^3/uL (0-0.2); Absolute Eosinophils 0.2 10^3/uL (0-0.7); Absolute Immature Granulocytes 0.1 10^3/uL (0-0.05); Absolute Lymphocytes 1.3 10^3/uL (1.2-3.4); Absolute Neutrophils 10.7 10^3/uL (1.4-6.5); Hematocrit 33.9 % (39.0-52.0); Hemoglobin 11.3 g/dL (13.0-18.0); Mean Corp Hgb Conc. 33.3 g/dL (33.0-37.0); Mean Corpuscular Hgb 31.4 pg (27.0-31.0); Mean Corpuscular Volume 94.2 fL (80.0-94.0); Mean Platelet Volume 10.7 fL (7.4-10.4); Nucleated Red Blood Cells % 0 % (-); Platelet Count 191 10^3/uL (130-400); Red Cell Dist. Width 13.8 % (11.5-14.5); White Blood Cell Count 13.4 10^3/uL (4.8-10.8)
[2024-05-29 06:42] LABS: ALT (SGPT) 19 U/L (0-50); AST (SGOT) 32 U/L (17-59); Alkaline Phosphatase 117 U/L (38-126); Blood Urea Nitrogen 26 mg/dl (9-20); Calcium 8.4 mg/dl (8.4-10.2); Carbon Dioxide 27 mmol/L (22-30); Chloride 108 mmol/L (98-107); Estimated Creatinine Clearance 58 ml/min; Glucose 160 mg/dl (70-99); Potassium 3.5 mmol/L (3.5-5.1); Sodium 143 mmol/L (135-145); Total Bilirubin 0.7 mg/dl (0.2-1.3); Total Protein 5.8 g/dl (6.3-8.2); eGFR > 60.00
[2024-05-29 07:50] VITALS: BP 127/75
[2024-05-29 08:01] LABS: Glucose - Point of Care 175 mg/dl (70-99)
--- NOTE | 2024-05-29 08:09 | W.PN.UPDATE ---
Update Note
Progress Note Update
Mr. Wilburn is an 83-year-old male who was noted to have an acute versus subacute right femoral neck fracture. Patient's has expressed concerns with surgical intervention. This morning on rounds, patient was lying directly on his right hip. Per
nursing, he continues to roll onto the side even if he does not start the night and laying on his right side. No complaints of pain while moving his ground. He was combative during the day yesterday and unable to obtain x-rays. Demeanor seems
much improved this morning. May weight-bear as tolerated. PT for gait training and transfers. There is no evidence of [place], so medically stable, may be discharged back with outpatient follow-up with Dr. Gordon in 4 weeks with x-rays
taken at the facility..
[2024-05-29] MEDS: NSS IV (09:57)
[2024-05-29] MEDS: PROTONIX 40 MG PO ×2 (09:58→22:33)
[2024-05-29] MEDS: LOW STRENGTH ASPIRIN 81 MG PO (09:58)
[2024-05-29] MEDS: MIRALAX 17 GRAMS PO ×2 (09:58→22:34)
[2024-05-29] MEDS: RISPERDAL 0.5 MG PO ×2 (09:58→22:33)
[2024-05-29] MEDS: NOVOLOG FLEXPEN-LOW RESISTANCE 1 UNITS SC ×2 (09:59→17:43)
--- NOTE | 2024-05-29 11:02 | CM ---
Addendum entered by Joseline Rush RN 05/30/24 15:03:
Plan: discharge back to [facility]. No precert required. IMM reviewed with spouse at the bedside.
Call report to: [phone]
Fax report to: [phone]
Medical necessity and transport forms on chart.
Original Note:
Reviewed the chart notes. Admissions Liaison requested a copy of the CT abd/pelvis be sent via [facility], sent. Per note, no surgery. CM continues to be available to patient/family and is monitoring medical plan for needs at discharge.
Plan: Discharge back to [facility] when medically stable.
--- NOTE | 2024-05-29 12:17 | W.PN.HOSP.TC ---
Today's Communication/Plan
-
Monitor vital signs see plan
PT/OT
Continue with antibiotics for now
Abdominal x-ray
Follow final blood culture speciation
Leukocytosis improving, continue antibiotics for now
Nonoperative management per orthopedics
Called spouse, left voicemail
Assessment / Plan
Assessment / Plan
General: Well Developed, Well Nourished and Other (Restless)
HEENT: Anicteric and Moist mucous membranes
Respiratory: Clear and Non Labored Respirations
Cardiac: S1/S2, Regular Rhythm and Tachycardia
GI: Soft and Non Tender
Neuro: Awake, Alert and Oriented (Self only)
Psych: calm
Sepsis secondary to Left-Sided Colitis
Likely secondary stercoral colitis
Agree with laxatives, enema
GI following
C. difficile negative, stool studies, norovirus pending
Continue with ceftriaxone and Flagyl for now
clears
For 1 out of 2 blood culture positive with gram-positive cocci in clusters and gram-positive bacilli. Await speciation. Leukocytosis improving
Abdomen x-ray 05/29
Lactic acidosis
Monitor
Fluids
Right Hip Fracture, acute vs subacute (new compared to Feb 2024)
Orthopedics following, awaiting family decision regarding surgical versus nonsurgical management
- Hip, Femur and Knee X-rays per ortho recommendation, patient has been agitated and has been refusing
If nonsurgical management then will need recommendation regarding physical therapy evaluation per orthopedics. Discussed with physical therapy and the recommended weight-based as tolerated. They want patient to follow-up with them outpatient. The
discussed with patient's spouse and they do not want surgery at this time
Dementia with Sundowning; dementia with behavioral disturbances
History of Parkinson's
Started Risperdal twice daily
Multiple Prior Strokes
-Brain MRI 2022: Small chronic transcortical infarct in the medial left frontal lobe. Small chronic infarct in the right cerebellar hemisphere
-Continue aspirin
Diabetes Mellitus, Type II
-Hold saxagliptin
-Monitor sugars and continue coverage insulin
A1c 11; was 10.2 on 2023; doubt patient will be compliant with insulin
Essential Hypertension
Blood pressure low normal here, hold amlodipine
Hyperlipidemia
-Continue simvastatin
Erosive Esophagitis
-Continue Protonix
Code Status: Per Current [place] paperwork patient is Full Code. Discussed with patient's spouse and she wants full code.
I spent a total of 51 minutes with the patient or on the floor. More than 50% of this time involved counseling and coordination of care.
Anticipated Discharge: 24 - 48 hours
Subjective/Interval History
-
Date of Service: May 29, 2024
denies nausea
Objective Data
-
Labs:
Laboratory Results
05/29/24
05:20
WBC 13.4 H
Hgb 11.3 L
Hct 33.9 L
Plt Count 191
Sodium 143
Potassium 3.5 D
Chloride 108 H
Carbon Dioxide 27
BUN 26 H
Creatinine 1.1
Glucose 160 H
Calcium 8.4
Total Bilirubin 0.7
AST 32
ALT 19
Alkaline Phosphatase 117
Vital Signs:
Vital Signs
Temp Pulse Resp BP Pulse Ox
98.7 F 94 18 127/75 97
05/29/24 07:50 05/29/24 07:50 05/29/24 07:50 05/29/24 07:50 05/29/24 07:50
I&O
05/28/24 05/29/24 05/30/24
06:59 06:59 06:59
Intake Total 560 / 560
Output Total 510 / 510
Balance 50 / 50
[2024-05-29 12:19] LABS: Glucose - Point of Care 142 mg/dl (70-99)
[2024-05-29 13:04] VITALS: BP 127/71; PULSE 88
[2024-05-29] MEDS: NOVOLOG FLEXPEN-LOW RESISTANCE SC (13:50)
[2024-05-29 15:28] VITALS: BP 141/74
--- NOTE | 2024-05-29 16:09 | W.PN.GI.CBS2 ---
Today's Communication / Plan
-
bowel regimen, gi will sign off
Assessment / Plan
-
83-year-old male past medical history of stroke, dementia presenting with vomiting and left-sided abdominal pain. Found to have leukocytosis and lactic acid elevation and CT with left-sided colitis with moderate rectal stool burden with possible
developing stercoral colitis. Incidentally found to have a femoral neck fracture as well. Patient unable to give much of a history with his dementia.
s/p bowel regimen, XR shows improvement. Will advance diet. Continue bowel regimen as outpatient with miralax bid.
GI will sign off pls call with ?s.
Subjective
Subjective
Date of Service: May 29, 2024
no complaints but demented
Objective
Data Reviewed
Laboratory Data:
Laboratory Results
05/29/24 05:20
05/29/24 05:20
Laboratory Results
Total Bilirubin 0.7 mg/dl (0.2-1.3) 05/29/24 05:20
AST 32 U/L (17-59) 05/29/24 05:20
ALT 19 U/L (0-50) 05/29/24 05:20
Alkaline Phosphatase 117 U/L (38-126) 05/29/24 05:20
Lipase 47 U/L (23-300) 05/27/24 17:57
Vital Signs and I&O:
Vital Signs
Temp Pulse Resp BP Pulse Ox
98.3 F 80 16 141/74 97
05/29/24 15:28 05/29/24 15:28 05/29/24 15:28 05/29/24 15:28 05/29/24 15:28
I&O
05/28/24 05/29/24 05/30/24
06:59 06:59 06:59
Intake Total 560 / 560
Output Total 510 / 510
Balance 50 / 50
Physical Exam
Physical Exam
GI: Non Distended and Non Tender
[2024-05-29 17:07] LABS: Glucose - Point of Care 189 mg/dl (70-99)
[2024-05-29] MEDS: LOVENOX 40 MG SC (17:42)
--- NOTE | 2024-05-29 18:02 | PTCARENOTE ---
Patient with critical lab results during shift - positive for MRSA in nose and + blood cultures. made aware of results. Communicated with Aletha from infection control, patient is now on modified precautions for MRSA. Safety measures maintained
during shift. at bedside. Call rojas within reach.
[2024-05-29 21:52] LABS: Glucose - Point of Care 143 mg/dl (70-99)
[2024-05-29] MEDS: LIPITOR 20 MG PO (22:34)
[2024-05-29] MEDS: SENOKOT 17.2 MG PO (22:34)
[2024-05-29 23:40] VITALS: BP 113/67
[2024-05-30] MEDS: FLAGYL 500 MG 100 IV ×2 (00:16→12:39)
[2024-05-30] MEDS: ROCEPHIN 1000 MG IV (02:04)
[2024-05-30] MEDS: STERILE WATER FOR INJECTION 10 ML IV (02:04)
[2024-05-30 06:00] VITALS: BMI 22.9
[2024-05-30 07:52] VITALS: BP 127/75
[2024-05-30 07:57] LABS: Glucose - Point of Care 129 mg/dl (70-99)
[2024-05-30 07:58] LABS: % Basophils 0.3 % (0-2); % Eosinophils 2.6 % (0-6); % Immature Granulocytes 0.3 % (0-0.5); % Lymphocytes 17.4 % (20.5-51.1); % Monocytes 7.7 % (1.7-9.3); % Neutrophils 71.7 % (42.2-75.2); Absolute Eosinophils 0.2 10^3/uL (0-0.7); Absolute Lymphocytes 1.5 10^3/uL (1.2-3.4); Absolute Monocytes 0.7 10^3/uL (0.1-0.6); Absolute Neutrophils 6.3 10^3/uL (1.4-6.5); Hematocrit 31.4 % (39.0-52.0); Hemoglobin 10.4 g/dL (13.0-18.0); Mean Corp Hgb Conc. 33.1 g/dL (33.0-37.0); Mean Corpuscular Hgb 31.1 pg (27.0-31.0); Mean Platelet Volume 10.4 fL (7.4-10.4); Nucleated Red Blood Cells % 0 % (-); Platelet Count 156 10^3/uL (130-400); Red Blood Cell Count 3.34 10^6/uL (4.70-6.10); Red Cell Dist. Width 13.5 % (11.5-14.5); White Blood Cell Count 8.7 10^3/uL (4.8-10.8)
[2024-05-30 08:36] LABS: ALT (SGPT) 16 U/L (0-50); AST (SGOT) 26 U/L (17-59); Albumin 2.8 g/dl (3.5-5.0); Alkaline Phosphatase 99 U/L (38-126); Blood Urea Nitrogen 20 mg/dl (9-20); Calcium 8.5 mg/dl (8.4-10.2); Carbon Dioxide 26 mmol/L (22-30); Chloride 108 mmol/L (98-107); Estimated Creatinine Clearance 70 ml/min; Glucose 123 mg/dl (70-99); Potassium 3.2 mmol/L (3.5-5.1); Sodium 141 mmol/L (135-145); Total Bilirubin 0.6 mg/dl (0.2-1.3); Total Protein 5.5 g/dl (6.3-8.2); eGFR > 60.00
[2024-05-30] MEDS: PROTONIX 40 MG PO ×2 (08:59→20:55)
[2024-05-30] MEDS: RISPERDAL 0.5 MG PO ×2 (08:59→20:55)
[2024-05-30] MEDS: MIRALAX 17 GRAMS PO ×2 (08:59→20:55)
[2024-05-30] MEDS: LOW STRENGTH ASPIRIN 81 MG PO (08:59)
[2024-05-30] MEDS: NOVOLOG FLEXPEN-LOW RESISTANCE SC (08:59)
[2024-05-30] MEDS: TYLENOL 650 MG PO (09:17)
[2024-05-30] MEDS: KCL 40 MEQ PO (09:48)
[2024-05-30 12:08] LABS: Glucose - Point of Care 225 mg/dl (70-99)
[2024-05-30] MEDS: NOVOLOG FLEXPEN-LOW RESISTANCE 2 UNITS SC (12:39)
--- NOTE | 2024-05-30 12:51 | W.PN.HOSP.TC ---
Today's Communication/Plan
-
Monitor vital signs see plan
Follow final cultures
Continue with antibiotics
PT eval
Replete potassium
Hopeful discharge tomorrow once culture finalized
Discussed with spouse
Assessment / Plan
Assessment / Plan
General: Well Developed, Well Nourished and Other (Restless)
HEENT: Anicteric and Moist mucous membranes
Respiratory: Clear and Non Labored Respirations
Cardiac: S1/S2, Regular Rhythm and Tachycardia
GI: Soft and Non Tender
Neuro: Awake, Alert and Oriented (Self only)
Psych: calm
Sepsis secondary to Left-Sided Colitis
Likely secondary stercoral colitis
Agree with laxatives, enema
GI following, will discharge on laxatives
C. difficile negative, stool studies
Continue with ceftriaxone and Flagyl for now
clears
For 1 out of 2 blood culture positive with gram-positive cocci in clusters and gram-positive bacilli. Await speciation. Leukocytosis improving
Abdomen x-ray 05/29
Lactic acidosis
Monitor
Fluids
Hypokalemia
Replete
Right Hip Fracture, acute vs subacute (new compared to Feb 2024)
Orthopedics following, awaiting family decision regarding surgical versus nonsurgical management
- Hip, Femur and Knee X-rays per ortho recommendation, patient has been agitated and has been refusing
If nonsurgical management then will need recommendation regarding physical therapy evaluation per orthopedics. Discussed with physical therapy and the recommended weight-based as tolerated. They want patient to follow-up with them outpatient. The
discussed with patient's spouse and they do not want surgery at this time
Dementia with Sundowning; dementia with behavioral disturbances
History of Parkinson's
Started Risperdal twice daily
Multiple Prior Strokes
-Brain MRI 2022: Small chronic transcortical infarct in the medial left frontal lobe. Small chronic infarct in the right cerebellar hemisphere
-Continue aspirin
Diabetes Mellitus, Type II
-Hold saxagliptin
-Monitor sugars and continue coverage insulin
A1c 11; was 10.2 on 2023; doubt patient will be compliant with insulin, discussed with spouse
Essential Hypertension
Blood pressure low normal here, hold amlodipine
Hyperlipidemia
-Continue simvastatin
Erosive Esophagitis
-Continue Protonix
Code Status: Per Current [place] paperwork patient is Full Code. Discussed with patient's spouse and she wants full code.
Anticipated Discharge: Within 24 hours
Subjective/Interval History
-
Date of Service: May 30, 2024
Denies nausea
Objective Data
-
Labs:
Laboratory Results
05/30/24
07:42
WBC 8.7
Hgb 10.4 L
Hct 31.4 L
Plt Count 156
Sodium 141
Potassium 3.2 L
Chloride 108 H
Carbon Dioxide 26
BUN 20
Creatinine 0.9
Glucose 123 H
Calcium 8.5
Total Bilirubin 0.6
AST 26
ALT 16
Alkaline Phosphatase 99
Vital Signs:
Vital Signs
Temp Pulse Resp BP Pulse Ox
98.4 F 80 17 127/75 97
05/30/24 07:52 05/30/24 07:52 05/30/24 07:52 05/30/24 07:52 05/30/24 07:52
I&O
05/29/24 05/30/24 05/31/24
06:59 06:59 06:59
Intake Total 560 / 560 740 / 740
Output Total 510 / 510
Balance 50 / 50 740 / 740
[2024-05-30 14:57] VITALS: BP 122/63
[2024-05-30 17:13] LABS: Glucose - Point of Care 265 mg/dl (70-99)
[2024-05-30] MEDS: NOVOLOG FLEXPEN-LOW RESISTANCE 3 UNITS SC (17:30)
[2024-05-30] MEDS: LOVENOX 40 MG SC (17:31)
[2024-05-30 22:26] LABS: Glucose - Point of Care 211 mg/dl (70-99)
[2024-05-30] MEDS: LIPITOR 20 MG PO (23:02)
[2024-05-30] MEDS: MELATONIN 5 MG PO (23:02)
[2024-05-30] MEDS: FLAGYL 500 MG PO (23:03)
[2024-05-30] MEDS: SENOKOT PO (23:03)
[2024-05-30 23:20] VITALS: BP 134/79
[2024-05-31] MEDS: ROCEPHIN 1000 MG IV (01:07)
[2024-05-31] MEDS: STERILE WATER FOR INJECTION 10 ML IV (01:07)
[2024-05-31 06:00] VITALS: BMI 23.2
[2024-05-31 07:55] VITALS: BP 133/73
[2024-05-31 07:56] LABS: Glucose - Point of Care 132 mg/dl (70-99)
[2024-05-31] MEDS: NOVOLOG FLEXPEN-LOW RESISTANCE SC (08:09)
[2024-05-31 08:17] LABS: ALT (SGPT) 16 U/L (0-50); AST (SGOT) 22 U/L (17-59); Albumin 2.9 g/dl (3.5-5.0); Alkaline Phosphatase 98 U/L (38-126); Blood Urea Nitrogen 18 mg/dl (9-20); Calcium 8.2 mg/dl (8.4-10.2); Carbon Dioxide 26 mmol/L (22-30); Chloride 105 mmol/L (98-107); Estimated Creatinine Clearance 71 ml/min; Glucose 139 mg/dl (70-99); Potassium 3.5 mmol/L (3.5-5.1); Sodium 139 mmol/L (135-145); Total Bilirubin 0.6 mg/dl (0.2-1.3); Total Protein 5.7 g/dl (6.3-8.2); eGFR > 60.00
[2024-05-31] MEDS: PROTONIX 40 MG PO (08:18)
[2024-05-31] MEDS: MIRALAX 17 GRAMS PO (08:19)
[2024-05-31] MEDS: RISPERDAL 0.5 MG PO (08:19)
[2024-05-31] MEDS: LOW STRENGTH ASPIRIN 81 MG PO (08:19)
[2024-05-31 08:53] LABS: % Basophils 0.4 % (0-2); % Eosinophils 2.7 % (0-6); % Immature Granulocytes 0.4 % (0-0.5); % Lymphocytes 22.5 % (20.5-51.1); % Monocytes 8.8 % (1.7-9.3); % Neutrophils 65.2 % (42.2-75.2); Absolute Eosinophils 0.2 10^3/uL (0-0.7); Absolute Lymphocytes 1.7 10^3/uL (1.2-3.4); Absolute Monocytes 0.7 10^3/uL (0.1-0.6); Absolute Neutrophils 4.9 10^3/uL (1.4-6.5); Hematocrit 31.4 % (39.0-52.0); Hemoglobin 10.9 g/dL (13.0-18.0); Mean Corp Hgb Conc. 34.7 g/dL (33.0-37.0); Mean Corpuscular Hgb 31.9 pg (27.0-31.0); Mean Corpuscular Volume 91.8 fL (80.0-94.0); Mean Platelet Volume 10.9 fL (7.4-10.4); Nucleated Red Blood Cells % 0 % (-); Platelet Count 196 10^3/uL (130-400); Red Blood Cell Count 3.42 10^6/uL (4.70-6.10); Red Cell Dist. Width 13.2 % (11.5-14.5); White Blood Cell Count 7.5 10^3/uL (4.8-10.8)
--- NOTE | 2024-05-31 11:10 | W.PN.HOSP.TC ---
Today's Communication/Plan
-
Monitor vital signs see plan
Discharge today
Discussed with spouse at bedside
Switch antibiotics to oral
Time of discharge 37 minutes
Assessment / Plan
Assessment / Plan
General: Well Developed, Well Nourished and Other (Restless)
HEENT: Anicteric and Moist mucous membranes
Respiratory: Clear and Non Labored Respirations
Cardiac: S1/S2, Regular Rhythm and Tachycardia
GI: Soft and Non Tender
Neuro: Awake, Alert and Oriented (Self only)
Psych: calm
Sepsis secondary to Left-Sided Colitis
Likely secondary stercoral colitis
Agree with laxatives, enema
GI following, will discharge on laxatives
C. difficile negative, stool studies
Continue with ceftriaxone and Flagyl for now, switch to p.o. antibiotics on dc
clears
For 1 out of 2 blood culture positive with diphtheria, micro cocci. Appears contaminated. However given symptoms we will treat, leukocytosis improved
Abdomen x-ray 05/29
Lactic acidosis
Monitor
Fluids
Hypokalemia
Replete
Right Hip Fracture, acute vs subacute (new compared to Feb 2024)
Orthopedics following, awaiting family decision regarding surgical versus nonsurgical management
- Hip, Femur and Knee X-rays per ortho recommendation, patient has been agitated and has been refusing
If nonsurgical management then will need recommendation regarding physical therapy evaluation per orthopedics. Discussed with physical therapy and the recommended weight-based as tolerated. They want patient to follow-up with them outpatient. The
discussed with patient's spouse and they do not want surgery at this time
Dementia with Sundowning; dementia with behavioral disturbances
History of Parkinson's
Risperdal
Multiple Prior Strokes
-Brain MRI 2022: Small chronic transcortical infarct in the medial left frontal lobe. Small chronic infarct in the right cerebellar hemisphere
-Continue aspirin
Diabetes Mellitus, Type II
-Hold saxagliptin
-Monitor sugars and continue coverage insulin
A1c 11; was 10.2 on 2023; doubt patient will be compliant with insulin, discussed with spouse
Essential Hypertension
Blood pressure low normal here, hold amlodipine
Hyperlipidemia
-Continue simvastatin
Erosive Esophagitis
-Continue Protonix
Code Status: Per Current [place] paperwork patient is Full Code. Discussed with patient's spouse and she wants full code.
Anticipated Discharge: Today
Subjective/Interval History
-
Date of Service: May 31, 2024
Denies pain
Objective Data
-
Labs:
Laboratory Results
05/31/24
07:20
WBC 7.5
Hgb 10.9 L
Hct 31.4 L
Plt Count 196 D
Sodium 139
Potassium 3.5
Chloride 105
Carbon Dioxide 26
BUN 18
Creatinine 0.9
Glucose 139 H
Calcium 8.2 L
Total Bilirubin 0.6
AST 22
ALT 16
Alkaline Phosphatase 98
Vital Signs:
Vital Signs
Temp Pulse Resp BP Pulse Ox
97.5 F 91 16 133/73 97
05/31/24 07:55 05/31/24 07:55 05/31/24 07:55 05/31/24 07:55 05/31/24 11:07
I&O
05/30/24 05/31/24 06/01/24
06:59 06:59 06:59
Intake Total 740 / 740 1480 / 1480
Balance 740 / 740 1480 / 1480
--- NOTE | 2024-05-31 11:18 | W.DCSUMMARY ---
Discharge Summary
Discharge Data
Date of Admission: 05/27/24
Date of Discharge: 05/31/24
-
Pending Results: No
Hospital Course
83-year-old male with past medical history of dementia, CVA, diabetes mellitus, hypertension, hyperlipidemia, erosive esophagitis came to the hospital from group home with sepsis secondary to left-sided colitis which was likely thought was
secondary to severe constipation with stercoral colitis. Patient was initially started on antibiotics. Patient was also seen by GI and was recommended laxatives. Patient symptoms continue to improve over time on laxatives. 1 out of 2 blood
cultures were positive for diphtheria and micro cocci which was likely thought was possible contamination however given his symptoms he was treated with antibiotics. He also had lactic acidosis on admission which continues to improve. On admission
he also had right hip fracture which likely was started acute versus subacute and patient was seen by orthopedics. Patient spouse did not wanted patient to have any surgery and was okay with managing this conservatively. Patient was instructed to
follow-up with orthopedics outpatient. Patient also had some sundowning along with his dementia and was started on Risperdal. For his diabetes it appeared it was uncontrolled and after discussion with his spouse did not appear that he will be
compliant with insulin. Once his symptoms continue to improve, he was then discharged back to rehab with instructions to follow-up with all his physicians outpatient.
Discharge Plan
-
Patient Disposition: Care Home/SNF
Discharge Diagnosis/Procedures: Sepsis secondary to stercoral colitis
Right hip fracture
Bacteremia with micrococci and diphtheria
Dementia with sundowning
Uncontrolled diabetes mellitus
Condition: Fair
Diet: As tolerated
Activity: With assistance and As tolerated
Driving Restrictions: Not until seen by your Dr
Bathing Restrictions: None
Blood Work: CBC and BMP next week at SNF
Activity Restrictions/Additional Instructions:
Continue cefdinir for another 10 days and continue Flagyl for another 7 days
Referrals:
Allan Rivas MD [Active] - (GI follow up with Dr. Rivas or SRE[facility] -will need repeat EGD with prior noted changes in EGD in 2022 and consider colonoscopy with hx impaction)
Marvin Davies DO [Family Provider] - in less than 1 week
Yasir Gordon MD [Active] - in one week
Prescriptions:
New
polyethylene glycol 3350 17 gram Powder In Packet
17 g PO BID Qty: 0 0RF
sennosides [Gisele-alessia] 8.6 mg Tablet
17.2 mg PO HS Qty: 0 0RF
risperidone 0.5 mg Tablet
0.5 mg PO HS Qty: 0 0RF
cefdinir 300 mg capsule
300 mg PO BID Qty: 20 0RF
metronidazole 500 mg tablet
500 mg PO Q8H 7 Days Qty: 21 0RF
Probiotic 10 billion cell capsule
10,000 mmu cells PO DAILY Qty: 14 0RF
Continued
simvastatin 40 mg tablet
40 mg PO HS
pantoprazole 40 mg tablet,delayed release (DR/EC)
40 mg PO BID
ascorbic acid (vitamin C) [Vitamin C] 500 mg tablet
250 mg PO DAILY
acetaminophen [Tylenol] 325 mg Tablet
650 mg PO Q6HPRN PRN (Reason: mild pain/temp>100)
cyanocobalamin (vitamin B-12) 1,000 mcg Tablet
1,000 mcg PO DAILY
magnesium hydroxide [Milk of Magnesia] 400 mg/5 mL Suspension
30 ml PO [id number] PRN (Reason: no bm in 3 days)
insulin aspart U-100 100 unit/mL Solution
1 sliding scale dose SC AC
Rx Instructions:
125-150=2u,151-200=4u,201-250=6u,251-300=8u,301-350=10u,351-400=12u
bisacodyl [Dulcolax (bisacodyl)] 10 mg Suppository
10 mg GA DAILYPRN PRN (Reason: if mom ineffective aftr 24 hrs)
Fleet Enema 19-7 gram/118 mL Enema
118 ml GA DAILYPRN PRN (Reason: if dulcolax ineffective aftr 24 hrs)
aspirin 81 mg Tablet,Chewable
81 mg PO DAILY
melatonin 5 mg Tablet
5 mg PO HSPRN PRN (Reason: insomnia)
saxagliptin 5 mg Tablet
5 mg PO DAILY
ferrous sulfate 325 mg (65 mg iron) tablet
325 mg PO DAILY
Held
amlodipine 5 mg tablet
5 mg PO DAILY
Hold Instructions: Restart when blood pressure is greater than 140/90
Discharge Orders:
Discharge Patient (As Directed); Ordered 05/31/24
Ordered By: Hill Carrillo
Discharge Date and Time
Discharge Date/Time: 05/31/24 14:30
Print Language: ECUADOREAN
[2024-05-31 12:16] LABS: Glucose - Point of Care 380 mg/dl (70-99)
[2024-05-31] MEDS: FLAGYL 500 MG PO (12:18)
[2024-05-31] MEDS: NOVOLOG FLEXPEN-LOW RESISTANCE 2 UNITS SC (12:21)
[2024-05-31 12:27] LABS: Glucose - Point of Care 233 mg/dl (70-99)
--- NOTE | 2024-05-31 12:55 | CM ---
Patient from [facility] with Hx dementia, CVAs with Dx Dx Sepsis secondary to Left-Sided Colitis, acute vs subacute Right Hip Fracture. Room air. PT; requires assist of 2, recommend skilled rehab.
Spoke with Cecelia, [facility]; they are able to accept the patient back today. Call report to: [phone], Fax report to: [phone].
Met with patient and ; both agree to d/c today back to [facility]. IMM completed.
Plan [facility] today by ambulance.
[2024-05-31 13:11] VITALS: BP 149/90
== END 2024-05-31 14:30 | DRG 871 ==
LOC: 2 NORTH 23:21
PROVIDERS: Physician Assistant; Physician Assistant Medical; ADMITTING PHYSICIAN Hospitalist; ATTENDING PHYSICIAN Internal Medicine; CONSULT PHYSICIAN Internal Medicine Gastroenterology; CONSULT PHYSICIAN Student in an Organized Health Care Education/Training Program; EMERGENCY PHYSICIAN Emergency Medicine; FAMILY PHYSICIAN Family Medicine
DX: A41.9 Sepsis, unspecified organism (principal); S72.011A Unspecified intracapsular fracture of right femur, initial encounter for closed fracture; F05 Delirium due to known physiological condition; F02.A18 Dementia in other diseases classified elsewhere, mild, with other behavioral disturbance; K51.50 Left sided colitis without complications; K22.10 Ulcer of esophagus without bleeding; E87.20 Acidosis, unspecified; K52.89 Other specified noninfective gastroenteritis and colitis; E11.65 Type 2 diabetes mellitus with hyperglycemia; E11.40 Type 2 diabetes mellitus with diabetic neuropathy, unspecified; I10 Essential (primary) hypertension; K56.41 Fecal impaction; I25.10 Atherosclerotic heart disease of native coronary artery without angina pectoris; Z86.73 Personal history of transient ischemic attack (TIA), and cerebral infarction without residual deficits; K21.00 Gastro-esophageal reflux disease with esophagitis, without bleeding; Z88.0 Allergy status to penicillin; Z79.82 Long term (current) use of aspirin; Z79.4 Long term (current) use of insulin; Z79.899 Other long term (current) drug therapy; E78.00 Pure hypercholesterolemia, unspecified; K22.70 Barrett's esophagus without dysplasia; N30.90 Cystitis, unspecified without hematuria; E87.6 Hypokalemia; G20.A1 Parkinson's disease without dyskinesia, without mention of fluctuations; G47.00 Insomnia, unspecified
CPT/HCPCS: 73502; 73560; 74018; 74177; 80048; 80053; 82962; 83036; 83605; 83690; 85025; 85027; 87040; 87045; 87046; 87070; 87077; 87147; 87205; 87324; 87427; 87449; 87502; 87798; 89055; 93005; 96361; 96374; 96375; 97163; 97530; 99285; Q9967

== ENCOUNTER 2024-07-18 06:19 | Day surgery (SDC) | payer MEDICARE, SELFPAY ==
[2024-07-18] VITALS (10 sets, daily range): BP systolic 110–139; BP diastolic 68–78; BMI 25.1
[2024-07-18 10:35] LABS: Glucose - Point of Care 151 mg/dl (70-99)
[2024-07-18] MEDS: NORMOSOL-R/PLASMALYTE-A 1000 IV (11:05)
[2024-07-18] MEDS: CELEBREX 200 MG PO (11:07)
[2024-07-18] MEDS: TYLENOL 1000 MG PO (11:07)
[2024-07-18 13:19] LABS: Glucose - Point of Care 147 mg/dl (70-99)
== END 2024-07-18 15:25 | disposition home or self-care (01) ==
LOC: SDS 06:19
PROVIDERS: ATTENDING PHYSICIAN Orthopaedic Surgery Hand Surgery
DX: S52.252A Displaced comminuted fracture of shaft of ulna, left arm, initial encounter for closed fracture (principal); X58.XXXA Exposure to other specified factors, initial encounter
CPT/HCPCS: 25545; C1713; 82962